=== PATIENT | male | born 1950 | race Caucasian/White ===

== ENCOUNTER 2017-04-04 14:04 | Inpatient (IN) | payer MEDICARE ==
[2017-04-04 14:40] LABS: #Basophils 0.1 thou/uL (0.0-0.2); #Eosinphils 0.1 thou/uL (0.0-0.7); #Lymphocytes 2.1 thou/uL (1.20-3.40); #Monocytes 0.7 thou/uL (0.11-0.59); #Neutrophils 5.3 thou/uL (1.40-6.50); %Basophils 0.7 % (0.0-1.0); %Eosinophils 1.2 % (0.0-10.0); %Lymphocytes 25.3 % (21.0-51.0); %Monocytes 8.8 % (0.0-10.0); Red Blood Cell (RBC) Count 4.09 mill/uL (4.70-6.10); White Blood Cell (WBC) Count 8.2 thou/uL (4.8-10.8)
[2017-04-04 14:47] LABS: PTT 30.5 SEC (22.9-36.1); Prothrombin Time 13.9 SEC (12.0-14.7)
[2017-04-04] MEDS ORDERED: Diltiazem HCl 125 MG, Admixture Fee 1 EACH in Sodium Chloride 0.9% 100 ML IVPB SCH (15:00)
--- NOTE | 2017-04-04 15:02 | RAD ---
PORTABLE CHEST: History: Chest pain. Comparison: 08-09-16 FINDINGS: Cardiomegaly. Post op sternotomy change. Lung morel appear clear. No evidence of vascular congestion . IMPRESSION: Mild cardiomegaly. No acute lung process. POS: [facility]
[2017-04-04 15:04] LABS: Digoxin Less than 0.15 ng/mL (0.8-2.0)
[2017-04-04 15:06] LABS: ALT (SGPT) 22 U/L (8-55); AST (SGOT) 16 U/L (5-34); Alkaline Phosphatase 96 U/L (40-150); Anion Gap 15 mmol/L (10-20); BUN (Urea Nitrogen) 13 mg/dL (8.4-25.7); Bilirubin, Total 1.8 mg/dL (0.2-1.2); CK (CPK) 123 U/L (30-200); Calc. Creatinine Clearance 0 mL/min (70-130); Calcium 9.4 mg/dL (7.8-10.44); Carbon Dioxide 28 mmol/L (23-31); Chloride 101 mmol/L (98-107); Estimated GFR-MDRD 72; Lipase 27 U/L (8-78); Protein, Total 7.3 g/dL (5.8-8.1)
[2017-04-04 15:13] LABS: Troponin I 0.519 ng/mL (< 0.028)
[2017-04-04] MEDS ORDERED: Enoxaparin Sodium 100 MG/ML SYRINGE ONE (16:05)
[2017-04-04] MEDS ORDERED: Enoxaparin Sodium 30 MG/0.3 ML SYRINGE ONE (16:07)
[2017-04-04] MEDS ORDERED: Digoxin 0.5 MG/2 ML AMP ONE ×2 (18:05→18:06)
[2017-04-04 18:15] LABS: Critical Call Chem Troponin I RESULT DECREASING; Troponin I 0.462 ng/mL (< 0.028)
[2017-04-04] MEDS ORDERED: HYDROcodone/Acetaminophen 5/325 mg Tablet PO PRN (19:09)
[2017-04-04] MEDS ORDERED: Dextrose 5% in Water 1,000 ML IV PRN (19:09)
[2017-04-04] MEDS ORDERED: Ondansetron ODT 4 MG TAB PO PRN (19:09)
[2017-04-04] MEDS ORDERED: HYDROcodone/Acetaminophen 10/325 mg Tablet PO PRN (19:09)
[2017-04-04] MEDS ORDERED: Dextrose 50% Abboject 50 ML SYRINGE SLOW IVP PRN (19:09)
[2017-04-04] MEDS ORDERED: Acetaminophen 325 MG TAB PO PRN (19:09)
[2017-04-04 20:39] VITALS: BMI 31.1
[2017-04-04] MEDS: HumaLOG 300 UNITS/3 ML VIAL SC PRN (20:51)
[2017-04-04] MEDS ORDERED: Atorvastatin Calcium 20 MG TAB PO SCH (21:00)
[2017-04-04] MEDS ORDERED: Enoxaparin Sodium 120 MG/0.8 ML SYRINGE SC SCH (21:00)
--- NOTE | 2017-04-04 22:09 | HP ---
DATE OF ADMISSION: 04/04/2017 TIME OF SERVICE: 17:20 PRIMARY CARE PHYSICIAN: Jossy duarte. PRIMARY MEDICAL TECHNOLOGIST MICROBIOLOGY: I believe is Dr. Alvarado. CHIEF COMPLAINT: Shortness of breath. HISTORY OF PRESENT ILLNESS: Mr. Bae is a 66-year-old gentleman with history of obesity, diabetes mellitus type 2, coronary artery disease; and congestive heart failure, systolic, who presented to [facility] emergency department from the [facility] for shortness of breath. The patient states he has been having increased shortness of breath, palpitations, and today developed chest tightness. He denies any fevers or chills. No nausea, vomiting or sweats. No diaphoresis. He has had some ortho pnea. He has felt bad for the last 2 days and came to the [facility] Failure [facility] for evaluation. There he was found to be in atrial fibrillation with RVR and brought over here immediately for furthe r evaluation. Workup in the ER confirmed atrial fibrillation with RVR, troponin I was noted to be 0.519 and his CK- MB was normal at 3.7. We were called for evaluation. The patient states he had an echo done last month with Dr. Alvarado's office. I do not have the results for that immediately. Historically, he has had an EF of around 50%-55%. He has had some chronic systolic congestive heart failure. PAST MEDICAL HISTORY: 1. Diabetes mellitus type 2, non-insulin dependent. 2. Coronary artery disease status post coronary artery bypass grafting 3 vessels in 12/2006. 3. Essential hypertension. 4. Chronic systolic congestive heart failure. 5. Obesity. PAST SURGICAL HISTORY: Include, 1. Coronary artery bypass grafting x3 vessels on 01/12/2007. These were outlined very precisely in Dr. Cardenas's note dated 07/2016. 2. Bilateral carotid endarterectomy 3-4 years ago. 3. Bilateral lower extremity graft bypasses in 2012 or 2013. HOME MEDICATIONS: 1. Aspirin 81 mg a day, but he has been out of it and has not taken it. 2. Lipitor 40 mg p.o. at bedtime. 3. Lasix 40 mg daily. 4. Metformin 1000 mg p.o. b.i.d. 5. Entresto 1 tablet b.i.d. 6. Multivitamin daily. 7. KCl 20 mEq daily. 8. Nexium 22.3 mg 24-hour release. ALLERGIES: No known drug allergies. FAMILY HISTORY: Negative for clotting or bleeding disorder, no immune dysfunction. SOCIAL HISTORY: Past tobacco, but quit over a year ago. He states does drink weekly social alcohol. No IV drug use. REVIEW OF SYSTEMS: A 10-point review of systems was performed, negative for other systems except as stated as per HPI. PHYSICAL EXAMINATION: VITAL SIGNS: Temperature 98.2, pulse on arrival was 141, now down to 110s to 120s, blood pressure 10 7/78, respiratory rate 22, satting 98% on room air. GENERAL: He is awake. He is alert. He is oriented x3. He is an obese white male, appears to be in no acute distress. HEENT: Normocephalic, atraumatic. Pupils equal, round, reactive bilaterally. Mucous membranes are moist. He has no visible lesion, no thrush. NECK: Supple with no lymphadenopathy, JVD or thyromegaly. He has normal carotid upstrokes without b ruits. LUNGS: Clear bilaterally as a fine bibasilar crackles that seem to clear with deep inspiration. CARDIOVASCULAR: Tachycardic and irregularly irregular. He has normal S1, S2. I do hear a holosysto lic murmur best over the apex, does not radiate anywhere else. ABDOMEN: Obese, it is nontender, nondistended. Cannot palpate internal organs. He has no rebound, rigidity or guarding. There is normoactive bowel sounds present in all 4 quadrants. EXTREMITIES: No cyanosis or clubbing. He has a trace, 1+ pedal edema. I cannot palpate dorsalis pe dis or posterior tibial pulses well. His feet are warm. SKIN: Otherwise, warm, moist and well perfused without any other rashes or lesions. MUSCULOSKELETAL: Normal to inspection. Large joints appear uninflamed and no palpable joint effusio ns. NEUROLOGIC: Cranial nerves II-XII grossly intact. He has 5/5 strength. Normal speech pattern. No focal neurologic deficits. LABORATORY DATA: CMP is fairly normal. Creatinine 1.04, glucose was elevated at 350. INR normal at 1.1. Total bilirubin slightly elevated at 1.8. CBC showed a white count of 8.2, hemoglobin 13.1, hematocrit 39, platelets of 181,000 and a normal di fferential. A chest x-ray showed mild cardiomegaly. ASSESSMENT AND PLAN: 1. Atrial fibrillation with rapid ventricular response: New onset. Place the patient in patient on telemetry. He will be on a Cardizem drip. We will consult Cardiology to evaluate him. 2. Non-ST elevation myocardial infarction: Troponin I is 0.519. We will get serial cardiac biomark ers, place him on a beta cali, aspirin, and nitrates have tolerated. We will trend his troponins. Certainly could be demand ischemia from his heart rate and known coronary artery disease. 3. History of coronary artery disease: As above. He has no angina at present. He did have some ch est tightness, but seems to have resolved with his slowing heart rate. 4. Essential hypertension: We will continue his home medications as tolerated. 5. History of chronic systolic congestive heart failure: He had an echo last month, I have not orde red another one. 6. We will follow up on Cardiology's recommendations. 7. Obesity, BMI 30-35. The patient is being placed on a heart healthy diet, diabetic diet. 8. Diabetes mellitus type 2. We will continue metformin. We will use sliding scale insulin for cor rection and get q.i.d. a.c. and at bedtime Accu-Cheks.
--- NOTE | 2017-04-04 23:09 | CON ---
DATE OF CONSULTAION: 04/04/2017 HISTORY OF PRESENT ILLNESS: Patient is a 66-year-old gentleman who presents for evaluation of palpitations, chest discomfort, and dyspnea. The patient has a long history of coronary artery disease. He has previously undergone coronary artery bypass graft surgery x3 in 2006. He had a KATZ placed to LAD, saphenous vein graft to the diagonal and posterior descending artery. The patient also has a history of carotid endarterectomy. He has also undergone bilateral fem-pop surgery.The patient has a history of an ischemic cardiomyopathy.He has been admitted previously with congestive heart failure. The patient was seen most recently in the hospital with CHF and has been followed in the CHF clinic. He also has been in a trial called Prove-HF trial. The patient was in his usual state of health when he suddenly noticed the palpitations, chest discomfort, and dyspnea. PAST MEDICAL HISTORY: 1. Hypertension. 2. Hyperlipidemia. 3. Ischemic cardiomyopathy. 4. Diabetes mellitus. 5. History of noncompliance. 6. Cerebrovascular disease. 7. Peripheral vascular disease. 8. Dyslipidemia. PAST SURGICAL HISTORY: Bilateral carotid endarterectomy, coronary artery bypass surgery, femoral bypass surgery. SOCIAL HISTORY: He is a former smoker. FAMILY HISTORY: Strong family history of heart disease. ALLERGIES: No known drug allergies. MEDICATIONS: Glucophage 500 b.i.d., Altace 2.5 daily, potassium 10 daily, Lasix 40 at bedtime, Plavix 75 daily, Coreg 6.25 b.i.d., Omnicef 300 b.i.d., atorvastatin 20 daily, and aspirin 81 daily. REVIEW OF SYSTEMS: Ten-point system otherwise unremarkable. No history of bright red blood per rectum, hematuria. PHYSICAL EXAMINATION: GENERAL: This is an obese gentleman in mild distress with a blood pressure 100/ 60, heart rate is 120 and irregular. NECK: Full. LUNGS: Coarse breath sounds bilateral. HEART: Irregular rate and rhythm. Normal S1, S2, 1/6 systolic murmur. ABDOMEN: Distended. EXTREMITIES: Showed trace edema. VASCULAR: Radial pulses are 2+. LABORATORY RESULTS: Sodium 140, potassium 3.9, chloride 101, bicarbonate 28, BUN 13, creatinine is 1.0, glucose 305. Troponin was 0.046. His white blood cell count is 8.2, hemoglobin 13.1, hematocrit 39.0 and his platelets were 181. INR is 1.1. EKG revealed atrial fibrillation with a nonspecific ST-T wave abnormality. IMPRESSION: 1. New onset atrial fibrillation. 2. History of coronary artery bypass graft surgery.` 3. Hypertension. 4. Dyslipidemia. 5. Diabetes mellitus. 6. Ischemic cardiomyopathy. 7. Obesity. PLAN: This gentleman presents with new onset atrial fibrillation. From a cardiac standpoint, he will need to be on chronic anticoagulation therapy. I have recommended the patient to undergo SARAH and electrical cardioversion. We will add digoxin to his medical regimen to slow his heart rate. We will follow this patient with you through his hospitalization. JANY
[2017-04-05 06:04] LABS: #Basophils 0.1 thou/uL (0.0-0.2); #Eosinphils 0.1 thou/uL (0.0-0.7); #Monocytes 0.8 thou/uL (0.11-0.59); #Neutrophils 3.7 thou/uL (1.40-6.50); %Eosinophils 1.6 % (0.0-10.0); %Lymphocytes 30.5 % (21.0-51.0); %Monocytes 11.4 % (0.0-10.0); Hematocrit 34.1 % (42.0-52.0); Red Blood Cell (RBC) Count 3.55 mill/uL (4.70-6.10); White Blood Cell (WBC) Count 6.6 thou/uL (4.8-10.8)
[2017-04-05 06:25] LABS: Anion Gap 11 mmol/L (10-20); BUN (Urea Nitrogen) 14 mg/dL (8.4-25.7); Calc. Creatinine Clearance 109 mL/min (70-130); Carbon Dioxide 30 mmol/L (23-31); Chloride 99 mmol/L (98-107); Cholesterol 110 mg/dl (< 200 Desired); Estimated GFR-MDRD 74; LDL Cholesterol, Calculated 34 mg/dL
[2017-04-05 06:26] LABS: Critical Call Chem Troponin I RESULT DECREASING; Troponin I 0.451 ng/mL (< 0.028)
[2017-04-05] MEDS ORDERED: Aspirin 325 MG TAB PO SCH (09:00)
[2017-04-05 09:31] LABS: Hematocrit 35.4 % (42.0-52.0)
[2017-04-05 11:29] LABS: Troponin I 0.435 ng/mL (< 0.028)
--- NOTE | 2017-04-05 11:37 | PDOC.PN ---
- Subjective Encounter Start Date: 04/05/17 Encounter Start Time: 09:50 Pt feeling better, Hungry. Seen by Dr Solis, going to SARAH and DC cardioversion today. No more chest pressure, rate much better on cardizem gtt at 7.5. No F/C, no N/V/d/c, no SOB, no orthopnea now 10 point ROS performed and neg for all systems except as above - Objective Resuscitation Status: Resuscitation Status FULL:Full Resuscitation MAR Reviewed: Yes Vital Signs & Weight: Vital Signs (12 hours) Temp Pulse Resp BP Pulse Ox 04/05/17 07:51 98.0 F 85 18 131/59 L 94 L 04/05/17 07:41 98.0 F 109 H 18 94 L 04/05/17 04:00 98.0 F 109 H 18 109/57 L 93 L Weight Weight 230 lb 2 oz I&O: 04/04/17 04/05/17 04/06/17 06:59 06:59 06:59 Intake Total 414 Output Total 500 Balance -86 Result Diagrams: 04/05/17 09:17 04/05/17 05:49 Additional Labs: Accuchecks 04/05/17 04/05/17 04/04/17 11:04 06:03 20:34 POC Glucose 304 H 298 H 267 H Radiology Reviewed by me: Yes EKG Reviewed by me: Yes Phys Exam - Physical Examination Constitutional: NAD HEENT: PERRLA, moist MMs, sclera anicteric, oral pharynx no lesions Neck: no nodes, no JVD, supple, full ROM Respiratory: no wheezing, no rales, no rhonchi, clear to auscultation bilateral Cardiovascular: no significant murmur, no rub, irregular Gastrointestinal: soft, non-tender, no distention, positive bowel sounds Musculoskeletal: no edema, pulses present Neurological: non-focal, normal sensation, moves all 4 limbs Lymphatic: no nodes Psychiatric: normal affect, A&O x 3 Skin: no rash, normal turgor, cap refill <2 seconds Dx/Plan (1) New onset atrial fibrillation Code(s): I48.91 - UNSPECIFIED ATRIAL FIBRILLATION Status: Acute Comment: rate betteron cardizem. for DC cardioversion today if SARAH clear of clot (2) Acute on chronic systolic CHF (congestive heart failure) Code(s): I50.23 - ACUTE ON CHRONIC SYSTOLIC (CONGESTIVE) HEART FAILURE Status : Acute Comment: diruese as indicated (3) CAD (coronary artery disease) Code(s): I25.10 - ATHSCL HEART DISEASE OF [place] CORONARY ARTERY W/O ANG PCTRS Status: Chronic Qualifiers: Coronary Disease-Associated Artery/Lesion type: unspecified vessel or lesion type [place] vs. transplanted heart: [place] heart Associated angina: with stable angina Qualified Code(s): I25.118 - Atherosclerotic heart disease of [place] coronary artery with other forms of angina pectoris (4) Demand ischemia Code(s): I24.8 - OTHER FORMS OF ACUTE ISCHEMIC HEART DISEASE Status: Acute Comment: from Afib with RVR. better now. Trop peaked at 0.5 (5) Diabetes mellitus Code(s): E11.9 - TYPE 2 DIABETES MELLITUS WITHOUT COMPLICATIONS Status: Chronic Qualifiers: Diabetes mellitus type: type 2 Diabetes mellitus complication status: with hyperglycemia Diabetes mellitus watermaster insulin use: without chcf use Qualified Code(s): E11.65 - Type 2 diabetes mellitus with hyperglycemia (6) HTN (hypertension) Code(s): I10 - ESSENTIAL (PRIMARY) HYPERTENSION Status: Chronic Qualifiers: Hypertension type: essential hypertension Qualified Code(s): I10 - Essential (primary) hypertension - Plan cont current plan of care * .
--- NOTE | 2017-04-05 13:47 | ECHO ---
TRANSESOPHAGEAL ECHOCARDIOGRAM: DATE OF PROCEDURE: 04/05/17 INDICATION: 66-year-old gentleman with paroxysmal atrial fibrillation. DESCRIPTION OF PROCEDURE: The patient was taken to the PACU. The patient was sedated by anesthesiology. A transesophageal probe was placed in the distal esophagus and stomach. Echocardiographic images were obtained. The transesophageal probe was removed. FINDINGS: 1. Mild to moderate decrease in left ventricular systolic function. 2. The septal wall appears akinetic. 3. Normal mitral and aortic valve. 4. Mild mitral regurgitation. 5. Mild tricuspid regurgitation. 6. No thrombus in appendage. 7. Atherosclerotic debris in the descending aorta. IMPRESSION: No formed thrombus in the left atrium or left atrial appendage.
--- NOTE | 2017-04-05 13:48 | OP ---
PROCEDURE NOTE: Date: 04/05/17 PROCEDURE: Electrical cardioversion. INDICATION: This is a 66-year-old gentleman with paroxysmal atrial fibrillation. DESCRIPTION OF PROCEDURE: The patient taken to the PACU. The patient is sedated by anesthesiology. The patient was shocked wi th 200 joules synchronized electricity. The patient converted to normal sinus rhythm. IMPRESSION: Successful electrocardioversion.
[2017-04-05] MEDS ORDERED: Propofol 200 MG/20 ML VIAL ONE (16:26)
[2017-04-05] MEDS: Aspirin 81 mg Enteric Coated Tablet PO SCH (16:29)
[2017-04-05] MEDS: metFORMIN 500 MG TAB PO SCH (16:29)
[2017-04-05] MEDS: Apixaban 5 MG TAB PO SCH ×2 (16:29→20:12)
[2017-04-05] MEDS: Carvedilol 3.125 MG TAB PO SCH (17:45)
[2017-04-05] MEDS: HumaLOG 300 UNITS/3 ML VIAL SC PRN (17:45)
[2017-04-05] MEDS ORDERED: Atorvastatin Calcium 40 MG TAB PO SCH (21:00)
[2017-04-05] MEDS ORDERED: Sacubitril 49 MG/Valsartan 51 MG TABLET PO SCH (21:00)
[2017-04-06] MEDS ORDERED: Carvedilol 6.25 MG TAB PO SCH (08:00)
[2017-04-06] MEDS ORDERED: Sacubitril 49 MG/Valsartan 51 MG TABLET PO SCH ×2 (08:31→09:00)
[2017-04-06] MEDS ORDERED: Carvedilol 3.125 MG TAB PO SCH (08:31)
[2017-04-06] MEDS ORDERED: Furosemide 40 MG TAB PO SCH ×2 (08:45→09:30)
[2017-04-06] MEDS: Apixaban 5 MG TAB PO SCH (09:36)
[2017-04-06] MEDS: metFORMIN 500 MG TAB PO SCH (09:36)
[2017-04-06] MEDS: Aspirin 81 mg Enteric Coated Tablet PO SCH (09:36)
[2017-04-06] MEDS: Carvedilol 3.125 MG TAB PO SCH (10:08)
[2017-04-06 13:03] VITALS: TEMP 98.1
[2017-04-06] MEDS: HumaLOG 300 UNITS/3 ML VIAL SC PRN (13:41)
[2017-04-06 15:01] VITALS: BP 111/73
--- NOTE | 2017-04-06 15:56 | DIS ---
DATE OF ADMISSION: 04/04/2017 DATE OF DISCHARGE: 04/06/2017 DISCHARGE DIAGNOSES: 1. New onset atrial fibrillation. 2. Demand ischemia. 3. History of coronary artery disease. 4. Status post coronary artery bypass grafting in the past. 5. Status post discontinue cardioversion this hospital stay. 6. Acute on chronic systolic congestive heart failure. 7. Diabetes mellitus type 2, uncontrolled, without long-term insulin use. 8. Essential hypertension. CONSULTATION: Dr. Oscar Solis on 04/04/2017. PROCEDURES: 1. Transesophageal echocardiogram on 04/05/2017 that revealed mild to moderate decrease in LV systol ic function, akinetic septal wall, mild MR, mild TR, normal mitral and aortic valves. No thrombus in the atrial appendages and atherosclerotic debris in the descending aorta. 2. Discontinue cardioversion on 04/05/2017 and was successful and conversion back to normal sinus rh ythm. HISTORY AND PHYSICAL: Mr. Bae is a 66-year-old gentleman whom I admitted on 04/04/2017. He prese nted to the emergency department with complaints of difficulty breathing that has been going on and i ncreasing shortness of breath over several days. He went to his appointment at the Heart Failure Cli lance today and was found to have tachycardia and was sent to the emergency department for evaluation. There, he is found to be in atrial fibrillation with rapid ventricular response which is a new findin g for him. We were subsequently called for admission. The remainder of his workup revealed troponin I of 0.519. The patient was subsequently admitted to our service. HOSPITAL COURSE: The patient was seen and examined by me in the Emergency Department. He was admitt ed to the hospital for atrial fibrillation with RVR and Cardizem drip. He was placed in the telemetr y floor and Cardiology consulted. The patient was seen by Dr. Solis, medication adjustments were made and he was scheduled for SARAH a nd discontinue cardioversion in the morning. Overnight, his heart rate remained rate controlled in t he low 100s. He had no further chest pain and biomarkers remained stable at 0.5 range. He was taken for his SARAH, which was negative for atrial clot and discontinue cardioversion was successful and he was kept overnight. His biomarkers improved, he had no further discomfort, and he remained in sinus rhythm overnight. He was started on Eliquis by Dr. Solis. Today, he is feeling better, and was stable for discharge with outpatient followup. DISCHARGE MEDICATIONS: 1. Eliquis 5 mg p.o. b.i.d., prescription sent. 2. Aspirin 81 mg daily. 3. Lipitor 40 mg p.o. at bedtime. 4. Coreg 6.25 mg p.o. b.i.d. 5. Plavix 75 mg a day which he does not take. 6. Lasix 40 mg p.o. daily. 7. Metformin 1000 mg p.o. b.i.d. 8. Multivitamin daily. 9. Potassium chloride 20 mEq daily. 10. Entresto per Dr. Alvarado 97/103 one p.o. b.i.d. The patient was seen and examined on the day of discharge. He remained in normal sinus rhythm. Disc harge plan was discussed with the patient's face to face at the bedside. FOLLOWUP APPOINTMENTS 1. Dr. Alvarado, his edi consultant with approved program in [facility] within a week. 2. PCP: The patient said he has none. I encouraged him to follow up with one established. DISCHARGE ACTIVITY: Per cardiopulmonary limits. DISCHARGE DIET: Heart healthy diabetic diet recommended. Patient was instructed to call his edi consultant or to the emergency department for worsening symptoms .
[2017-04-07] MEDS ORDERED: Furosemide 40 MG TAB PO SCH (07:30)
== END 2017-04-06 15:30 | disposition home or self-care (01) | DRG 308 ==
LOC: ERS 14:04 → 2NO 16:24
PROVIDERS: ADMIT Internal Medicine Infectious Disease; ATTEND Internal Medicine Infectious Disease
PROC: 5A2204Z Restoration of Cardiac Rhythm, Single (ICD-10-PCS; principal; 2017-04-05)
PROC: B24BZZ4 Ultrasonography of Heart with Aorta, Transesophageal (ICD-10-PCS; 2017-04-05)
DX: I48.0 Paroxysmal atrial fibrillation (principal); I50.23 Acute on chronic systolic (congestive) heart failure; I24.8 Other forms of acute ischemic heart disease; Z95.1 Presence of aortocoronary bypass graft; E11.65 Type 2 diabetes mellitus with hyperglycemia; I25.10 Atherosclerotic heart disease of native coronary artery without angina pectoris; I11.0 Hypertensive heart disease with heart failure; I25.5 Ischemic cardiomyopathy; Z86.73 Personal history of transient ischemic attack (TIA), and cerebral infarction without residual deficits; E78.5 Hyperlipidemia, unspecified; Z91.19 Patient's noncompliance with other medical treatment and regimen; Z87.891 Personal history of nicotine dependence; E66.9 Obesity, unspecified; Z68.31 Body mass index [BMI] 31.0-31.9, adult
CPT/HCPCS: 36415; 36416; 71010; 80048; 80053; 80061; 80162; 82553; 83690; 84443; 84484; 85025; 85610; 85730; 93005; 93312; 96361; 96365; 96366; 96372; 96375; 96376; J1160; J1650; J2704; J7050

== ENCOUNTER 2018-03-31 10:12 | Inpatient (IN) | payer MEDICARE ==
[2018-03-31] MEDS ORDERED: Furosemide 40 MG/4 ML VIAL ONE (10:29)
[2018-03-31] MEDS ORDERED: Nitroglycerin 2% Ointment 1 INCH/1 GM Packet ONE (10:29)
[2018-03-31 10:34] LABS: #Basophils 0.1 thou/uL (0.0-0.2); #Eosinphils 0.1 thou/uL (0.0-0.7); #Lymphocytes 1.6 thou/uL (1.20-3.40); #Monocytes 0.5 thou/uL (0.11-0.59); #Neutrophils 4.7 thou/uL (1.40-6.50); %Basophils 0.7 % (0.0-1.0); %Lymphocytes 23.4 % (21.0-51.0); %Monocytes 7.1 % (0.0-10.0); %Neutrophils 67.8 % (42.0-75.0); Hemoglobin 13.2 g/dL (14.0-18.0); Mean Corpuscular HGB CONC 33.1 g/dL (32.0-36.0); Mean Corpuscular Hemoglobin 31.4 pg (27.0-31.0); Mean Corpuscular Volume 94.7 fL (78.0-98.0); Mean Platelet Volume 11.5 fL (7.4-10.4); Platelet Count 174 thou/uL (130-400); RBC Distribution Width 13.8 % (11.5-14.5); Red Blood Cell (RBC) Count 4.22 mill/uL (4.70-6.10)
--- NOTE | 2018-03-31 10:41 | RAD ---
PORTABLE CHEST: DATE: 03/31/2018. PROVIDED CLINICAL HISTORY: Dyspnea. FINDINGS: Comparison 04/04/2017. Cardiac silhouette appears enlarged. Median sternotomy changes are again see n. Prominence of the pulmonary vasculature and pulmonary interstitium. No focal consolidation, pleu ral fluid, or pneumothorax apparent. IMPRESSION: Findings suggesting congestive failure. Followup is recommended. POS: [facility]
[2018-03-31] MEDS ORDERED: Nitroglycerin 0.4 MG TAB (25 Tab Bottle) ONE (10:43)
[2018-03-31 10:52] LABS: ALT (SGPT) 17 U/L (8-55); AST (SGOT) 16 U/L (5-34); Albumin 4.3 g/dL (3.4-4.8); Alkaline Phosphatase 84 U/L (40-150); Anion Gap 15 mmol/L (10-20); BUN (Urea Nitrogen) 14 mg/dL (8.4-25.7); Bilirubin, Total 1.1 mg/dL (0.2-1.2); Calc. Creatinine Clearance 0 mL/min (70-130); Calcium 9.8 mg/dL (7.8-10.44); Carbon Dioxide 27 mmol/L (23-31); Chloride 102 mmol/L (98-107); Estimated GFR-MDRD 75; Globulin 3.6 g/dL (2.4-3.5); Glucose 259 mg/dL (80-115); Potassium 3.9 mmol/L (3.5-5.1); Protein, Total 7.9 g/dL (5.8-8.1); Sodium 140 mmol/L (136-145)
[2018-03-31] MEDS ORDERED: Acetaminophen 500 MG TAB ONE (11:07)
[2018-03-31 12:11] LABS: Magnesium 1.7 mg/dL (1.6-2.6); Phosphorus 2.9 mg/dL (2.3-4.7)
[2018-03-31] MEDS ORDERED: Acetaminophen 325 MG TAB PO PRN (12:28)
[2018-03-31] MEDS ORDERED: Ondansetron PF 4 MG/2 ML Vial IVP PRN (12:28)
[2018-03-31] MEDS ORDERED: Nitroglycerin 0.4 MG TAB (25 Tab Bottle) PO PRN (12:28)
[2018-03-31] MEDS ORDERED: Ondansetron ODT 4 MG TAB PO PRN (12:28)
[2018-03-31] MEDS ORDERED: Calcium Carbonate 500 MG ChewTAB PO PRN (12:28)
[2018-03-31] MEDS ORDERED: Clopidogrel Bisulfate 75 MG TAB PO SCH (12:30)
--- NOTE | 2018-03-31 12:45 | HP ---
PRIMARY CARE PHYSICIAN: [facility]. PRIMARY CASE MANAGEMENT COORDINATOR: Oscar Solis MD CHIEF COMPLAINT: Shortness of breath. HISTORY OF PRESENT ILLNESS: The patient is a 67-year-old male with congestive heart failure, diabetes mellitus type 2, and coronary artery disease, presented to the hospital with shortness of breath that has been going on for a week or so. It got worse over the last 24 hours, for which he presented to the emergency room. He was unable to lie down flat. He also noticed increased abdominal girth. The shortness of breath was mainly on minimal exertion. He had some cough, which was essentially dry. No fever, chills, or sick contacts reported. He denies any chest pain, palpitations, lightheadedness, dizziness, or syncope. No recent immobilization, travel reported. In the emergency room, his chest x-ray showed pulmonary vascular congestion. His BNP was 649. He received one dose of Lasix 40 mg in the emergency room and was placed on noninvasive positive pressure ventilation. At this time, he is off BiPAP. PAST MEDICAL HISTORY: 1. Coronary artery disease, status post CABG in 2006. 2. Hypertension. 3. Chronic systolic heart failure. 4. Diabetes mellitus type 2, on metformin. 5. Paroxysmal atrial fibrillation, on anticoagulation. 6. Peripheral vascular disease. PAST SURGICAL HISTORY: 1. SARAH cardioversion in 04/09. 2. Coronary artery bypass grafting in 2006. 3. Bilateral carotid endarterectomy. 4. Femoral bypass surgery. ALLERGIES: NO KNOWN DRUG ALLERGIES. CURRENT HOME MEDICATIONS: Conformed with the medication at the bedside. 1. Metformin 1000 mg b.i.d. 2. Entresto 97/103 b.i.d. 3. Multivitamin one tablet daily. 4. Lasix 40 mg daily. 5. Plavix 75 mg daily. 6. Carvedilol 12.5 mg b.i.d. 7. Lipitor 40 mg at bedtime. 8. Aspirin 81 mg daily. Please note that, the patient is out of aspirin for last two weeks. 9. Eliquis 5 mg b.i.d. SOCIAL HISTORY: The patient is a former smoker. Drinks alcohol socially. He denies any drug use. He is full code. FAMILY HISTORY: Positive for heart disease. REVIEW OF SYSTEMS: All other review of systems was reviewed and was found negative. PHYSICAL EXAMINATION: VITAL SIGNS: Temperature 97.6, respirations 25, pulse rate of 91, blood pressure of 174/98, initially with a repeat blood pressure of 153/66, with O2 saturation 93 % on room air. GENERAL: A 67-year-old man, in mild respiratory distress, able to complete short sentences. HEENT: Head; atraumatic, normocephalic. Sclerae anicteric. Moist mucous membranes. No oral lesion. NECK: Supple. JVD elevated. No carotid bruit. LUNGS: Showed bibasilar crackles with scattered rhonchi. No significant wheezing appreciated. LUNGS: Symmetrical. Minimal accessory muscle use. HEART: S1 and S2 present. Regular rate and rhythm. Healed midline scar from previous CABG. No heaves or palpitation. ABDOMEN: Soft, distended. Bowel sounds present. No guarding or rigidity. EXTREMITIES: 1+ edema in bilateral lower extremities. SKIN: Warm and dry. LYMPH NODES: No palpable lymph nodes in the neck. Peripheral, vascular, radial pulses palpable bilaterally. MUSCULOSKELETAL: No joint swelling, tenderness. LABORATORY FINDINGS: CBC showed WBC 7.0, with hemoglobin 13.2, hematocrit 39.9, platelet count 174. Chemistry showed sodium 140, potassium 3.9, chloride of 102 , bicarb 27, BUN 14, creatinine 1. BNP 650. Troponin was negative. Chest x-ray , by my review, as discussed above. EKG, by my review, showed sinus rhythm with ST depression in the inferior and lateral leads. IMPRESSION: 1. Acute on chronic systolic heart failure exacerbation. 2. Acute hypoxic respiratory failure secondary to #1. 3. Coronary artery disease, status post coronary artery bypass grafting. 4. Ischemic cardiomyopathy. 5. Chronic kidney disease, stage 2. 6. Diabetes mellitus type 2, on metformin. 7. Peripheral vascular disease. 8. Dyslipidemia. 9. History of medication noncompliance. 10. Intermittent alcohol use. 11. Hypertension. 12. Paroxysmal atrial fibrillation, on anticoagulation. PLAN: The patient will be monitored on the telemetry unit. He is currently off noninvasive positive pressure ventilation. We will continue IV diuresis. We will resume Entresto in a.m. We will continue aspirin and Plavix. We will get serial troponins. The patient was extensively counseled on congestive heart failure. He does not check his weight on a daily basis. We will consult Cardiovascular Team. He will also benefit from [facility] Failure Clinic. Fluid restriction. Nebulizer treatment as needed. We will continue carvedilol at 6.25 mg twice a day. We will increase to home dose that is 12.5 mg twice a day. The patient will require 2 to 3 days for stabilization. Plan of care was discussed with the patient in detail. He stated understanding. Cardiac Rehab will be consulted. We will start him on insulin sliding scale. Job ID: [id number] MTDD
[2018-03-31 13:50] VITALS: BMI 33.1
[2018-03-31] MEDS ORDERED: Furosemide 40 MG/4 ML VIAL SLOW IVP SCH (16:00)
[2018-03-31] MEDS: metFORMIN 500 MG TAB PO SCH (16:53)
[2018-03-31 17:35] LABS: Platelet Count 182 thou/uL (130-400)
[2018-03-31] MEDS ORDERED: Dextrose 5% in Water 1,000 ML IV PRN (17:43)
[2018-03-31] MEDS ORDERED: Dextrose 50% Abboject 50 ML SYRINGE SLOW IVP PRN (17:43)
[2018-03-31] MEDS ORDERED: Insulin Regular 300 UNITS/3 ML VIAL SC PRN (17:43)
[2018-03-31 17:58] LABS: Troponin I 0.028 ng/mL (< 0.028)
[2018-03-31] MEDS: Insulin Regular 300 UNITS/3 ML VIAL SC PRN (18:26)
[2018-03-31] MEDS: Famotidine 20 MG TAB PO SCH (21:07)
[2018-03-31] MEDS: Atorvastatin Calcium 40 MG TAB PO SCH (21:07)
[2018-03-31] MEDS: Senokot S 8.6-50 MG TAB PO SCH (21:07)
[2018-03-31] MEDS: Apixaban 5 MG TAB PO SCH (21:07)
[2018-03-31] MEDS: Carvedilol 6.25 MG TAB PO SCH (21:07)
[2018-04-01] MEDS: Furosemide 40 MG/4 ML VIAL SLOW IVP SCH ×2 (05:24→13:25)
[2018-04-01 06:17] LABS: ALT (SGPT) 13 U/L (8-55); AST (SGOT) 13 U/L (5-34); Alkaline Phosphatase 74 U/L (40-150); Anion Gap 14 mmol/L (10-20); BUN (Urea Nitrogen) 15 mg/dL (8.4-25.7); Calc. Creatinine Clearance 124 mL/min (70-130); Calcium 9.4 mg/dL (7.8-10.44); Carbon Dioxide 31 mmol/L (23-31); Chloride 100 mmol/L (98-107); Estimated GFR-MDRD 82; Globulin 3.3 g/dL (2.4-3.5); Glucose 210 mg/dL (80-115); Magnesium 1.6 mg/dL (1.6-2.6); Potassium 3.5 mmol/L (3.5-5.1); Protein, Total 7.3 g/dL (5.8-8.1); Sodium 141 mmol/L (136-145)
[2018-04-01] MEDS: Apixaban 5 MG TAB PO SCH ×2 (09:33→20:17)
[2018-04-01] MEDS: Clopidogrel Bisulfate 75 MG TAB PO SCH (09:34)
[2018-04-01] MEDS: Famotidine 20 MG TAB PO SCH ×2 (09:34→20:17)
[2018-04-01] MEDS: Aspirin 81 mg Enteric Coated Tablet PO SCH (09:34)
[2018-04-01] MEDS: Multivitamin W/ Minerals 1 TAB PO SCH (09:34)
[2018-04-01] MEDS: Senokot S 8.6-50 MG TAB PO SCH ×2 (09:34→20:17)
[2018-04-01] MEDS: metFORMIN 500 MG TAB PO SCH ×2 (09:34→16:17)
[2018-04-01] MEDS: Insulin Regular 300 UNITS/3 ML VIAL SC PRN ×2 (09:35→13:24)
[2018-04-01] MEDS: Carvedilol 6.25 MG TAB PO SCH ×2 (09:35→20:16)
[2018-04-01] MEDS ORDERED: Alogliptin 25 MG TAB PO SCH (14:00)
--- NOTE | 2018-04-01 15:15 | PRG ---
DATE OF SERVICE: 04/01/2018 SUBJECTIVE: The patient is seen and examined at the bedside. He is feeling better. He urinated quite a bit overnight. He does not have chest pain. OBJECTIVE: VITAL SIGNS: Blood pressure is 190/71, pulse is 43, respiratory rate is 16, O2 saturation 97% on room air. GENERAL: He is obese. His weight is 245 pounds. BMI 33.2. HEENT: His head is atraumatic and normocephalic. Eyes, PERRLA. Sclerae, nonicteric. Oral mucosa is moist. NECK: Supple, obese. LUNGS: Breath sounds diminished at both bases with few crackles bilaterally. No wheezing. HEART: S1 and S2, somewhat irregular. No S3, no S4. ABDOMEN: Soft, obese, nontender. EXTREMITIES: No clubbing, cyanosis, or edema. NEUROLOGICAL: He is alert and oriented x4. There are no any motor deficits. Cranial nerves are intact. LABORATORY DATA: Labs showed glycemia is ranging from 219 to 265. His electrolytes within normal limits. BUN 15 and creatinine 0.93. IMPRESSION: 1. Acute congestive heart failure with some chronic component. 2. Acute hypoxic respiratory failure, secondary to #1. 3. Coronary artery disease, stable. 4. Ischemic cardiomyopathy. 5. Chronic kidney disease, stage 2. 6. Type 2 diabetes mellitus, not controlled. 7. Peripheral vascular disease. 8. Labile pulse. 9. Dyslipidemia. 10. History of medication noncompliance. 11. Hypertension. 12. Paroxysmal atrial fibrillation, on anticoagulation. PLAN: Plan is to restart his Entresto today. Continue his diuresis with IV Lasix. Continue his carvedilol and clopidogrel. Continue apixaban. Continue metformin. We will make some adjustments to his diabetic regimen since he is running consistently above 200s on his Accu-Cheks and we encouraged him to ambulate. We will check his BMP tomorrow morning and test him. Job ID: [id number]
[2018-04-01] MEDS: Sacubitril 49 MG/Valsartan 51 MG TABLET PO SCH (20:16)
[2018-04-01] MEDS: Atorvastatin Calcium 40 MG TAB PO SCH (20:17)
[2018-04-02] MEDS: Furosemide 40 MG/4 ML VIAL SLOW IVP SCH ×2 (04:51→15:00)
[2018-04-02 06:52] LABS: ALT (SGPT) 11 U/L (8-55); AST (SGOT) 13 U/L (5-34); Albumin 3.7 g/dL (3.4-4.8); Alkaline Phosphatase 74 U/L (40-150); Anion Gap 13 mmol/L (10-20); BUN (Urea Nitrogen) 22 mg/dL (8.4-25.7); Bilirubin, Total 0.8 mg/dL (0.2-1.2); Calc. Creatinine Clearance 91 mL/min (70-130); Calcium 9.2 mg/dL (7.8-10.44); Carbon Dioxide 31 mmol/L (23-31); Chloride 99 mmol/L (98-107); Estimated GFR-MDRD 57; Glucose 245 mg/dL (80-115); Magnesium 1.5 mg/dL (1.6-2.6); Potassium 3.4 mmol/L (3.5-5.1); Protein, Total 6.7 g/dL (5.8-8.1); Sodium 140 mmol/L (136-145)
[2018-04-02] MEDS: Alogliptin 25 MG TAB PO SCH (08:13)
[2018-04-02] MEDS: Apixaban 5 MG TAB PO SCH ×2 (08:13→20:40)
[2018-04-02] MEDS: metFORMIN 500 MG TAB PO SCH ×2 (08:13→16:00)
[2018-04-02] MEDS: Carvedilol 6.25 MG TAB PO SCH ×2 (08:13→20:40)
[2018-04-02] MEDS: Aspirin 81 mg Enteric Coated Tablet PO SCH (08:13)
[2018-04-02] MEDS: Sacubitril 49 MG/Valsartan 51 MG TABLET PO SCH ×2 (08:17→20:41)
[2018-04-02] MEDS: Senokot S 8.6-50 MG TAB PO SCH ×2 (08:17→20:41)
[2018-04-02] MEDS: Famotidine 20 MG TAB PO SCH ×2 (08:17→20:40)
[2018-04-02] MEDS: Clopidogrel Bisulfate 75 MG TAB PO SCH (08:17)
[2018-04-02] MEDS: Multivitamin W/ Minerals 1 TAB PO SCH (08:17)
[2018-04-02] MEDS ORDERED: Magnesium 2 GM/50 ML 2 GM in Premix Bag 1 BAG IVPB SCH (11:00)
[2018-04-02] MEDS: Insulin Regular 300 UNITS/3 ML VIAL SC PRN ×2 (12:15→18:33)
[2018-04-02 14:09] LABS: Hemoglobin 13.3 g/dL (14.0-18.0); Platelet Count 180 thou/uL (130-400)
--- NOTE | 2018-04-02 15:50 | PDOC.PN ---
- Subjective Encounter Start Date: 04/02/18 Encounter Start Time: 14:00 -: old records requested/rev Pt seen and examined, chart reviewed in its entirety, this is my first visit with this patient. follow up for No F/C, no N/V/D/C, no CP or SOB, no cough or sputum All systems reviewed and neg except as above - Objective Resuscitation Status - Order Detail: 03/31/18 12:28 Resuscitation Status Routine Resuscitation Status: FULL: Full Resuscitation MAR Reviewed: Yes Vital Signs & Weight: Vital Signs (12 hours) Temp Pulse Pulse Pulse Resp BP BP 04/02/18 12:11 97.8 F 86 18 04/02/18 09:28 80 57 L 133/92 H 138/56 L 04/02/18 08:02 98.1 F 45 L 18 04/02/18 08:00 04/02/18 04:37 04/02/18 04:00 97.7 F 49 L 14 BP Pulse Ox 04/02/18 12:11 159/89 H 96 04/02/18 09:28 04/02/18 08:02 152/66 H 97 04/02/18 08:00 97 04/02/18 04:37 95 04/02/18 04:00 125/53 L 92 L Weight Weight 242 lb 12.8 oz I&O: 04/01/18 04/02/18 04/03/18 06:59 06:59 06:59 Intake Total 980 1220 Output Total 2125 1500 Balance -1145 -280 Result Diagrams: 04/02/18 13:51 04/02/18 13:51 Additional Labs: Accuchecks 04/01/18 04/01/18 20:08 16:56 POC Glucose 111 H 138 H Radiology Reviewed by me: Yes EKG Reviewed by me: Yes Dx/Plan (1) Acute on chronic systolic CHF (congestive heart failure) Code(s): I50.23 - ACUTE ON CHRONIC SYSTOLIC (CONGESTIVE) HEART FAILURE Status : Acute Comment: diruese as indicated (2) Demand ischemia Code(s): I24.8 - OTHER FORMS OF ACUTE ISCHEMIC HEART DISEASE Status: Acute Comment: from Afib with RVR. better now. Trop peaked at 0.5 (3) Hypoxia Code(s): R09.02 - HYPOXEMIA Status: Acute (4) New onset atrial fibrillation Code(s): I48.91 - UNSPECIFIED ATRIAL FIBRILLATION Status: Acute Comment: rate jeri gupta. for DC cardioversion today if SARAH clear of clot (5) Pneumonia Code(s): J18.9 - PNEUMONIA, UNSPECIFIED ORGANISM Status: Acute (6) CAD (coronary artery disease) Code(s): I25.10 - ATHSCL HEART DISEASE OF [place] CORONARY ARTERY W/O ANG PCTRS Status: Chronic Qualifiers: (7) Diabetes mellitus Code(s): E11.9 - TYPE 2 DIABETES MELLITUS WITHOUT COMPLICATIONS Status: Chronic Qualifiers: (8) HTN (hypertension) Code(s): I10 - ESSENTIAL (PRIMARY) HYPERTENSION Status: Chronic Qualifiers: (9) Tobacco use Code(s): Z72.0 - TOBACCO USE Status: Chronic - Plan * .
--- NOTE | 2018-04-02 19:27 | CON ---
DATE OF CONSULTATION: REASON FOR CONSULTATION: Nonsustained VT. HISTORY OF PRESENT ILLNESS: Mr. Bae is a very pleasant 67-year-old gentleman, who is a patient of Dr. Oscar Solis. He has a history of CAD, status post bypass surgery. He also has a history of remote tobacco abuse. He states he has had increased shortness of breath over the last several days or week. He has increased weight in addition to lower extremity edema and then PND and orthopnea. He has received Lasix with significant improvement. No chest pain or pressure noted. He still has difficulty lying flat. He did have nonsustained VT present on telemetry monitoring. His magnesium level is also 1.5. PAST MEDICAL HISTORY: Diastolic heart failure, atrial fibrillation, CAD, diabetes mellitus, hyperlipidemia, fem-pop bypass, and carotid endarterectomy. ALLERGIES: NONE. MEDICATIONS: Include, 1. Metformin. 2. Entresto. 3. Multivitamin. 4. Lasix. 5. Plavix. 6. Carvedilol. 7. Lipitor. 8. Aspirin. 9. Eliquis. REVIEW OF SYSTEMS: A 10-point review of systems is reviewed and as above, otherwise negative. PHYSICAL EXAMINATION: VITAL SIGNS: Blood pressure 135/61, pulse 48, and temperature 97.6. crackles noted bilaterally. GENERAL: Patient is a pleasant male, who is in no acute distress. The patient appears their stated age. NEUROLOGIC: The patient is alert and oriented x3 with no focal neurologic deficits. HEENT: Sclerae without icterus. Mouth has moist mucous membranes with normal pallor. NECK: No JVD. Carotid upstroke brisk. No bruits bilaterally. LUNGS: Clear to auscultation with unlabored respirations. BACK: No scoliosis or kyphosis. CARDIAC: Regular rate and rhythm with normal S1 and S2. No S3 or S4 noted. No significant rubs, murmurs, thrills, or gallops noted throughout the precordium. PMI is not displaced. There is no parasternal heave. ABDOMEN: Soft, nontender, nondistended. No peritoneal signs present. No hepatosplenomegaly. No abnormal striae. EXTREMITIES: 2+ femoral and 2+ dorsalis pedis pulses. No cyanosis, clubbing, or edema. SKIN: No gross abnormalities. PERTINENT LABORATORY DATA: Hemoglobin 13.3 and hematocrit 41.5. IMPRESSION: 1. Nonsustained ventricular tachycardia. 2. Coronary artery disease. 3. Status post bypass surgery. 4. Diastolic heart failure. RECOMMENDATIONS: Mr. Bae' recent brief episode of nonsustained VT, likely related to low magnesium level. He has no previous history of syncope, presyncope, or associated symptoms. His LVEF on echo performed yesterday was within normal limits. He was supplemented with magnesium. Continue IV Lasix. He is improving. Further recommendations per Dr. Oscar Solis Job ID: [id number]
[2018-04-02] MEDS: Atorvastatin Calcium 40 MG TAB PO SCH (20:40)
[2018-04-03] MEDS: Furosemide 40 MG/4 ML VIAL SLOW IVP SCH (06:01)
[2018-04-03] MEDS: Aspirin 81 mg Enteric Coated Tablet PO SCH (08:13)
[2018-04-03] MEDS: metFORMIN 500 MG TAB PO SCH (08:13)
[2018-04-03] MEDS: Apixaban 5 MG TAB PO SCH (08:13)
[2018-04-03] MEDS: Alogliptin 25 MG TAB PO SCH (08:13)
[2018-04-03] MEDS: Carvedilol 6.25 MG TAB PO SCH (08:13)
[2018-04-03] MEDS: Clopidogrel Bisulfate 75 MG TAB PO SCH (08:14)
[2018-04-03] MEDS: Multivitamin W/ Minerals 1 TAB PO SCH (08:14)
[2018-04-03] MEDS: Famotidine 20 MG TAB PO SCH (08:14)
[2018-04-03] MEDS: Sacubitril 49 MG/Valsartan 51 MG TABLET PO SCH (08:15)
[2018-04-03] MEDS: Senokot S 8.6-50 MG TAB PO SCH (08:15)
[2018-04-03] MEDS: Insulin Regular 300 UNITS/3 ML VIAL SC PRN (08:15)
[2018-04-03] MEDS ORDERED: Carvedilol 6.25 MG TAB PO SCH ×3 (08:27→21:00)
[2018-04-03 12:10] VITALS: BP 159/67; TEMP 97.6
[2018-04-04] MEDS ORDERED: Furosemide 40 MG TAB PO SCH (07:30)
--- NOTE | 2018-04-07 13:24 | EKG ---
Test Reason : Blood Pressure : / mmHG Vent. Rate : 085 BPM Atrial Rate : 085 BPM P-R Int : 136 ms QRS Dur : 094 ms QT Int : 386 ms P-R-T Axes : 036 074 143 degrees QTc Int : 459 ms Normal sinus rhythm Abnormal ECG Confirmed by JANKI MOSELEY DO ([id number]), tape editor SANA KWONG ([id number]) on 04/07/2018 1:24:16 PM Referred By: Confirmed By:JANKI MOSELEY DO
== END 2018-04-03 13:08 | disposition home or self-care (01) | DRG 291 ==
LOC: ERS 10:12 → 2NO 11:40
PROVIDERS: ADMIT Internal Medicine; ATTEND Internal Medicine
PROC: B24BZZZ Ultrasonography of Heart with Aorta (ICD-10-PCS; principal; 2018-04-01)
DX: I13.0 Hypertensive heart and chronic kidney disease with heart failure and stage 1 through stage 4 chronic kidney disease, or unspecified chronic kidney disease (principal); I50.43 Acute on chronic combined systolic (congestive) and diastolic (congestive) heart failure; J96.01 Acute respiratory failure with hypoxia; I47.2 Ventricular tachycardia; N18.2 Chronic kidney disease, stage 2 (mild); E11.22 Type 2 diabetes mellitus with diabetic chronic kidney disease; Z79.84 Long term (current) use of oral hypoglycemic drugs; Z95.1 Presence of aortocoronary bypass graft; I25.5 Ischemic cardiomyopathy; Z91.14 Patient's other noncompliance with medication regimen; I48.0 Paroxysmal atrial fibrillation; Z79.01 Long term (current) use of anticoagulants; I73.9 Peripheral vascular disease, unspecified; E78.5 Hyperlipidemia, unspecified; Z79.82 Long term (current) use of aspirin; Z79.02 Long term (current) use of antithrombotics/antiplatelets
CPT/HCPCS: 36415; 36416; 71045; 80053; 83735; 83880; 84100; 84484; 85014; 85018; 85025; 85049; 93005; 93306; 93798; 94660; 94760; 96374; 99214; G0463; J1815; J1940; Q0162

== ENCOUNTER 2018-08-17 04:34 | Inpatient (IN) | payer MEDICARE ==
[2018-08-17] MEDS ORDERED: Magnesium 2 GM/50 ML BAG (IN WATER) ONE (04:48)
[2018-08-17] MEDS ORDERED: Nitroglycerin 2% Ointment 1 INCH/1 GM Packet ONE (04:48)
[2018-08-17] MEDS ORDERED: Acetaminophen 500 MG TAB ONE ×2 (04:48)
[2018-08-17 05:41] LABS: #Basophils 0.1 thou/uL (0.0-0.2); #Monocytes 0.5 thou/uL (0.11-0.59); #Neutrophils 5.4 thou/uL (1.40-6.50); %Basophils 0.9 % (0.0-1.0); %Eosinophils 0.3 % (0.0-10.0); %Lymphocytes 24.8 % (21.0-51.0); %Monocytes 6.5 % (0.0-10.0); %Neutrophils 67.5 % (42.0-75.0); Hemoglobin 11.4 g/dL (14.0-18.0); Mean Corpuscular HGB CONC 32.4 g/dL (32.0-36.0); Mean Corpuscular Hemoglobin 30.1 pg (27.0-31.0); Mean Corpuscular Volume 92.8 fL (78.0-98.0); Mean Platelet Volume 11.9 fL (7.4-10.4); Platelet Count 158 thou/uL (130-400); RBC Distribution Width 13.6 % (11.5-14.5); Red Blood Cell (RBC) Count 3.78 mill/uL (4.70-6.10); White Blood Cell (WBC) Count 8.1 thou/uL (4.8-10.8)
[2018-08-17 06:18] LABS: ALT (SGPT) 16 U/L (8-55); AST (SGOT) 28 U/L (5-34); Alcohol Less than 10 mg/dL (Less than 10); Alkaline Phosphatase 70 U/L (40-150); Anion Gap 18 mmol/L (10-20); BUN (Urea Nitrogen) 23 mg/dL (8.4-25.7); Calc. Creatinine Clearance 0 mL/min (70-130); Carbon Dioxide 18 mmol/L (23-31); Chloride 100 mmol/L (98-107); Estimated GFR-MDRD 64; Globulin 3.3 g/dL (2.4-3.5); Glucose 232 mg/dL (80-115); Potassium 4.9 mmol/L (3.5-5.1); Protein, Total 7.3 g/dL (5.8-8.1); Sodium 131 mmol/L (136-145)
[2018-08-17 06:56] LABS: CKMB 11.8 ng/mL (0-6.6)
[2018-08-17 07:15] LABS: INR-International Normal Ratio 1.2; PTT 36.1 SEC (22.9-36.1); Prothrombin Time 14.8 SEC (12.0-14.7)
--- NOTE | 2018-08-17 07:37 | RAD ---
CHEST 1 VIEW: Date: 08/17/18 INDICATION: Chest pain. COMPARISON: Prior exam dated 03/31/18. FINDINGS: Moderate cardiomegaly and post CABG change is stable. There is mild pulmonary vascular congestion. Th ere is mild interstitial edema. There are small bilateral pleural effusions. No acute osseous abnorma lity is evident. IMPRESSION: Mild CHF. POS: BH
[2018-08-17 07:47] LABS: Troponin I 4.152 ng/mL (< 0.028)
[2018-08-17] MEDS ORDERED: Ondansetron PF 4 MG/2 ML Vial IVP PRN (08:48)
[2018-08-17] MEDS ORDERED: Ondansetron ODT 4 MG TAB PO PRN (08:48)
[2018-08-17 08:52] VITALS: BMI 31.8
[2018-08-17] MEDS ORDERED: Prevnar 13-Val Conj/PF 0.5 ML SYRINGE IM ONE (09:15)
[2018-08-17] MEDS ORDERED: Acetaminophen 325 MG TAB PO PRN (10:11)
[2018-08-17] MEDS ORDERED: Senokot S 8.6-50 MG TAB PO PRN (10:11)
[2018-08-17] MEDS ORDERED: Dextrose 5% in Water 1,000 ML IV PRN (10:11)
[2018-08-17] MEDS ORDERED: Nitroglycerin 0.4 MG TAB (25 Tab Bottle) SL PRN (10:11)
[2018-08-17] MEDS ORDERED: Dextrose 50% Abboject 50 ML SYRINGE SLOW IVP PRN (10:11)
--- NOTE | 2018-08-17 10:14 | CON ---
DATE OF CONSULTATION: 08/17/2018 HISTORY OF PRESENT ILLNESS: The patient is a 68-year-old gentleman, who presented with palpitations and chest discomfort. The patient has a long history of coronary artery disease. He was seen initially in 1998. He underwent a cardiac catheterization,and was found to have diffuse 3-vessel coronary artery disease. The patient declined to undergo surgery and was placed on medical therapy. The patient underwent a repeat catheterization in 2006. He subsequently underwent coronary artery bypass graft surgery x3, KATZ to the LAD, saphenous vein graft to the diagonal and posterior descending artery. The patient subsequently has been on medical therapy. He was admitted in 2017 with atrial fibrillation. He subsequently underwent SARAH and cardioversion. The patient has been on chronic anticoagulation therapy. He was doing reasonably well until yesterday when he started drinking heavily. The patient states he had 6 beers yesterday afternoon. He subsequently developed palpitations and chest discomfort. He presented to the emergency room for further evaluation. The patient denies having any present chest discomfort. PAST MEDICAL HISTORY: 1. Coronary artery disease. 2. History of coronary artery bypass surgery. 3. History of peripheral vascular disease, status post aortofemoral bypass. 4. Hypertension. 5. Diabetes mellitus. 6. Ischemic cardiomyopathy. PAST SURGICAL HISTORY: Carotid endarterectomy, coronary artery bypass surgery, and bilateral femoral bypass. MEDICATIONS: See nursing list. SOCIAL HISTORY: Former smoker, heavy user of alcohol. ALLERGIES: NO KNOWN DRUG ALLERGIES. PHYSICAL EXAMINATION: GENERAL: Obese gentleman, in no acute distress. VITAL SIGNS: Blood pressure 135/67. NECK: Showed no jugular venous distention. LUNGS: Clear to auscultation. HEART: Regular rate and rhythm. Normal S1 and S2. 1/6 systolic murmur. ABDOMEN: Nondistended. EXTREMITIES: Show no edema. VASCULAR: Radial pulses are 2+. LABORATORY DATA: Sodium 131, potassium 4.9, chloride 100, bicarbonate 18, BUN 23, creatinine 1.15, CPK-MB 11.8. Troponin was 4.1. His white blood cell count is 8.1, hemoglobin 11.4, hematocrit 35.1, and platelets are 158. His EKG revealed rapid atrial flutter with left bundle-branch block. IMPRESSION: 1. Recurrent paroxysmal atrial fibrillation/flutter. 2. Severe coronary artery disease. 3. History of coronary artery bypass surgery. 4. Status post bifemoral bypass. 5. Diabetes mellitus. 6. Dyslipidemia. 7. History of ischemic cardiomyopathy. This gentleman presented after consuming excessive amounts of alcohol. He went into atrial fibrillation/flutter. He has evidence of a non-Q-wave myocardial infarction. The patient's chest pain is resolved on IV Cardizem. I would recommend electrical cardioversion. PLAN: 1. Proceed with SARAH and cardioversion. 2. Discontinue use of alcohol. This is a critical care note, time, 1 hour. Job ID: [id number] MTDD
--- NOTE | 2018-08-17 10:59 | HP ---
CHIEF COMPLAINT: Severe substernal chest pain. HISTORY OF PRESENT ILLNESS: A 68-year-old male with known history of coronary artery disease, status post coronary artery bypass graft, chronic congestive heart failure, atrial fibrillation, status post cardioversion, who is on chronic anticoagulation with Eliquis, who was brought in by EMS due to acute onset of severe substernal chest pain. The patient reportedly binged on beers yesterday, took about 10 beers from 4:00 p.m. to 10:00 p.m. Around 10:00 p.m. last night, he started having severe substernal chest pain, which was associated with palpitations. The patient reported that the substernal chest pain was very severe, the highest he has ever felt, worse than prior heart attack, was radiating to the left shoulder associated with shortness of breath, palpitations, and two episodes of emesis. EMS noted the patient was in atrial flutter and they gave the patient Cardizem en route to the hospital following which he was going in and out of atrial flutter with AV conduction delay. The patient received aspirin, magnesium sulfate, and Nitro-Bid in the emergency room on presentation and reported that this substernal chest pain has subsided, though he continues to have left shoulder pain which he rates at 2/10 currently. Evaluation in the ER showed that the patient was in atrial fibrillation with RVR with rate in 130s. The patient was subsequently started on Cardizem infusion. Further evaluation with subsequent EKG showed T inversion as well as ST changes. Troponin also was noted to be elevated at 1.19. Given that the patient was already on anticoagulation with Eliquis, he was not started on Lovenox or heparin. He was subsequently admitted to the ICU for further evaluation and treatment as recommended by Cardiology. PAST MEDICAL HISTORY: 1. Coronary artery disease, status post CABG in 2006. 2. Chronic systolic heart failure. 3. Type 2 diabetes mellitus. 4. Paroxysmal atrial fibrillation, on chronic anticoagulation as well as prior cardioversion. 5. Peripheral vascular disease. 6. Hypertension. PAST SURGICAL HISTORY: 1. Coronary artery bypass grafting in 2006. 2. Bilateral carotid endarterectomy. 3. Femoral bypass surgery. 4. SARAH cardioversion in March 2017. FAMILY HISTORY: Significant for diabetes, hypertension, and heart disease in both parents. SOCIAL HISTORY: The patient is . He lives alone. He is a former smoker, who stopped about 2 years ago after a long period of heavy smoking. He drinks occasionally. He used to drink heavily, but reported that currently only drinks at intervals. He reportedly took about 10 beers prior to onset of symptoms. He denied recreational drug use. ALLERGIES: NO KNOWN DRUG ALLERGIES REPORTED. CURRENT HOME MEDICATIONS: 1. Eliquis 5 mg p.o. b.i.d. 2. Lipitor 40 mg p.o. daily at bedtime. 3. Carvedilol 12.5 mg p.o. b.i.d. 4. Nexium 20 mg p.o. daily. 5. Lasix 20 to 40 mg p.o. daily. 6. Metformin 1000 mg p.o. b.i.d. 7. Potassium chloride 20 mEq p.o. daily. 8. Entresto 97/103 mg tablet one tablet p.o. b.i.d. REVIEW OF SYSTEMS: A 12-point review of system performed was negative other than pertinent positives and negatives included in the history of present illness. PHYSICAL EXAMINATION: VITAL SIGNS: Temperature 98.3, pulse 92, blood pressure 135/67, respiratory rate 20, SpO2 98 on room air. GENERAL: Obese male, in no obvious distress. Afebrile. Anicteric. Acyanotic. HEENT: Normocephalic, atraumatic. Pupils are reacting to light. NECK: Short thick neck with excess subcu tissue noticed. No masses or JVD appreciated. CARDIOVASCULAR: Irregular rhythm and rate with no obvious murmur appreciated. RESPIRATORY: Good air entry bilaterally with some transmitted sounds. No obvious crackle or rhonchi was appreciated. There is no use of accessory muscles. GI: Abdomen is obese, soft, nontender, nondistended with normal bowel sounds. EXTREMITIES: Mild bilateral leg edema noticed. No erythema. NEUROLOGIC: Conscious, alert, oriented x3 with appropriate mental status. Cranial nerves 2 through 12 are intact. The patient moves all extremities. DIAGNOSTIC DATA: CBC showed WBC count of 8.1, hemoglobin of 11.4, MCV of 92.8, platelet of 158. Coagulation panel showed PT 14.8, INR 1.2, APTT 36.1. CMP showed sodium 131, potassium 4.9, chloride 100, CO2 of 18, BUN 23, creatinine 1.15, glucose 232, calcium 9.0, total bilirubin 1.0, AST 28, ALT 16, alkaline phosphatase 70, total protein 7.3, albumin 4.0, globulin 3.3. Cardiac enzymes showed CK-MB 11.8 and troponin 1.9. Repeat troponin 1 hour later was 4.152. BNP is 576. TSH is 2.204. Plasma alcohol level was less than 10. Initial EKG done on presentation showed atrial fibrillation with rapid ventricular response of 130 with some PVCs. Subsequent three EKGs showed atrial fibrillation with T-wave inversion as well as ST changes. Chest x-ray showed moderate cardiomegaly as well as post CABG changes in addition to mild pulmonary vascular congestion and mild interstitial edema as well as small bilateral pleural effusion. ASSESSMENT: 1. Acute [id number] myocardial infarction. The patient has multiple risk factors including prior coronary artery disease, status post CABG, hypertension, diabetes, and hyperlipidemia. 2. Paroxysmal atrial fibrillation with rapid ventricular response. Rate control is better with Cardizem infusion. 3. Chronic systolic and diastolic heart failure with possible acute decompensation from acute myocardial infarction. 4. Type 2 diabetes with hyperglycemia. 5. Peripheral artery disease, status post femoral bypass. 6. Obesity. 7. Presumed obstructive sleep apnea: The patient reported snoring as well as apneic episodes while sleeping. 8. Hypertension: Blood pressure control is acceptable at this time. 9. Alcohol abuse. 10. Chronic anticoagulation with Eliquis. 11. Chronic kidney disease stage 2. 12. Dyslipidemia. PLAN: 1. We will continue antiplatelets and Cardizem infusion. We will defer anticoagulation to Cardiology. 2. We will start the patient on sliding scale insulin. We will also get hemoglobin A1c. 3. We will keep the patient n.p.o. 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 4. We continue antianginal and analgesics as needed. 5. Oxygen supplementation as needed will be provided. 6. Code status, full code. The patient's daughter is the surrogate decision maker. Job ID: [id number]
[2018-08-17 12:45] LABS: Troponin I 11.478 ng/mL (< 0.028)
[2018-08-17] MEDS ORDERED: Morphine 4 MG/ML VIAL ONE (13:48)
[2018-08-17] MEDS: Nitroglycerin 2% Ointment 1 INCH/1 GM Packet TOP SCH ×2 (13:49→21:03)
--- NOTE | 2018-08-17 13:55 | OP ---
DATE OF PROCEDURE: 08/17/2018 PROCEDURE PERFORMED: Transesophageal echocardiogram. INDICATIONS: A 68-year-old gentleman with typical atrial flutter. DESCRIPTION OF PROCEDURE: The patient was taken to the PACU. The patient was sedated by Anesthesiology. A transesophageal probe was placed into the distal esophagus and stomach. Echocardiographic images were obtained. The transesophageal probe was removed. FINDINGS: 1. Mild decrease in left ventricular systolic function. 2. Left atrial enlargement. 3. Moderate mitral regurgitation. 4. Moderate tricuspid regurgitation. 5. No thrombus noted in the left atrium or left atrial appendage. 6. Atherosclerotic debris in the descending aorta. IMPRESSION: No formed thrombus in the left atrium or left atrial appendage. Job ID: [id number]
--- NOTE | 2018-08-17 13:58 | OP ---
DATE OF PROCEDURE: 08/17/2018 PROCEDURE PERFORMED: Electrical cardioversion. INDICATIONS: A 68-year-old gentleman with typical atrial flutter. DESCRIPTION OF PROCEDURE: The patient was taken to the PACU. The patient was sedated by Anesthesiology. The patient was shocked with 50 joules and then 200 joules of synchronized electricity. The patient was converted to normal sinus rhythm. IMPRESSION: Successful electrical cardioversion. Job ID: [id number]
[2018-08-17] MEDS ORDERED: Carvedilol 6.25 MG TAB PO SCH (14:30)
[2018-08-17] MEDS: HYDROcodone/Acetaminophen 5/325 mg Tablet PO PRN (15:40)
[2018-08-17] MEDS ORDERED: PROPOFOL 200 MG/20 ML VIAL ONE (16:40)
[2018-08-17] MEDS ORDERED: Lidocaine 1% PF 5 ML VIAL ONE (16:40)
[2018-08-17] MEDS: Carvedilol 6.25 MG TAB PO SCH (18:17)
[2018-08-17] MEDS ORDERED: Non-Formulary Item 1 EACH (Sacubitril/Valsartan [Entresto 97 Mg-103 Mg Tablet] 1 TAB) PO SCH (21:00)
[2018-08-17] MEDS ORDERED: Atorvastatin Calcium 40 MG TAB PO SCH (21:00)
[2018-08-17] MEDS ORDERED: Apixaban 5 MG TAB PO SCH (21:00)
[2018-08-17] MEDS: Sacubitril 49 MG/Valsartan 51 MG TABLET PO SCH (21:03)
[2018-08-17] MEDS: Apixaban 5 MG TAB PO SCH (21:03)
[2018-08-17] MEDS: HumaLOG 300 UNITS/3 ML VIAL SC PRN (21:33)
[2018-08-18 04:47] LABS: #Basophils 0.1 thou/uL (0.0-0.2); #Lymphocytes 1.7 thou/uL (1.20-3.40); #Monocytes 0.6 thou/uL (0.11-0.59); #Neutrophils 4.6 thou/uL (1.40-6.50); %Basophils 0.8 % (0.0-1.0); %Eosinophils 0.7 % (0.0-10.0); %Lymphocytes 23.8 % (21.0-51.0); %Monocytes 8.8 % (0.0-10.0); %Neutrophils 65.9 % (42.0-75.0); Hemoglobin 10.7 g/dL (14.0-18.0); Mean Corpuscular HGB CONC 32.7 g/dL (32.0-36.0); Mean Corpuscular Hemoglobin 30.2 pg (27.0-31.0); Mean Corpuscular Volume 92.2 fL (78.0-98.0); Mean Platelet Volume 11.7 fL (7.4-10.4); Platelet Count 158 thou/uL (130-400); RBC Distribution Width 13.6 % (11.5-14.5); Red Blood Cell (RBC) Count 3.54 mill/uL (4.70-6.10)
[2018-08-18 05:08] LABS: Anion Gap 12 mmol/L (10-20); BUN (Urea Nitrogen) 20 mg/dL (8.4-25.7); Calc. Creatinine Clearance 105 mL/min (70-130); Calcium 9.2 mg/dL (7.8-10.44); Carbon Dioxide 26 mmol/L (23-31); Cardiac Risk 3.9 (Less than 4.5); Chloride 103 mmol/L (98-107); Cholesterol 122 mg/dl (< 200 Desired); Estimated GFR-MDRD 71; Glucose 172 mg/dL (80-115); HDL Cholesterol 31 mg/dL (>60 Neg Risk); LDL Cholesterol, Calculated 45 mg/dL; Potassium 4.3 mmol/L (3.5-5.1); Sodium 137 mmol/L (136-145); Triglycerides 228 mg/dL (Less than 150)
[2018-08-18] MEDS: Nitroglycerin 2% Ointment 1 INCH/1 GM Packet TOP SCH (06:40)
[2018-08-18] MEDS ORDERED: Aspirin 325 mg Enteric Coated Tablet PO SCH (09:00)
[2018-08-18] MEDS: Carvedilol 6.25 MG TAB PO SCH ×2 (09:18→17:14)
[2018-08-18] MEDS: Apixaban 5 MG TAB PO SCH ×2 (09:18→21:14)
[2018-08-18] MEDS: Sacubitril 49 MG/Valsartan 51 MG TABLET PO SCH ×2 (09:19→21:15)
[2018-08-18] MEDS: Aspirin 81 mg Enteric Coated Tablet PO SCH (09:19)
[2018-08-18] MEDS: Clopidogrel Bisulfate 75 MG TAB PO SCH (09:19)
[2018-08-18] MEDS: Morphine 2 MG/ML SYRINGE SLOW IVP PRN ×2 (09:26→21:22)
[2018-08-18] MEDS: HYDROcodone/Acetaminophen 5/325 mg Tablet PO PRN ×2 (09:27→21:20)
[2018-08-18] MEDS: HumaLOG 300 UNITS/3 ML VIAL SC PRN ×3 (11:49→21:31)
[2018-08-18] MEDS: Atorvastatin Calcium 40 MG TAB PO SCH (21:14)
--- NOTE | 2018-08-18 23:50 | PDOC.PN ---
- Subjective Encounter Start Date: 08/18/18 Encounter Start Time: 12:30 Doing ok post cardioversion. no pain. - Objective Resuscitation Status - Order Detail: 08/17/18 10:11 Resuscitation Status Routine Resuscitation Status: FULL: Full Resuscitation Vital Signs & Weight: Vital Signs (12 hours) Temp Pulse Pulse BP BP BP Pulse Ox 08/18/18 20:00 98 F 97 08/18/18 19:32 96 08/18/18 17:14 97/59 L 08/18/18 16:00 98.8 F 08/18/18 12:56 78 89 151/50 H 111/73 08/18/18 12:00 98.3 F Pulse Ox Pulse Ox 08/18/18 20:00 08/18/18 19:32 08/18/18 17:14 08/18/18 16:00 08/18/18 12:56 98 100 08/18/18 12:00 Weight Weight 234 lb 5.622 oz Most Recent Monitor Data Heart Rate from ECG 82 NIBP 118/74 NIBP BP-Mean 88 Respiration from ECG 13 SpO2 96 I&O: 08/17/18 08/18/18 08/19/18 06:59 06:59 06:59 Intake Total 776.4 830 Output Total 2050 750 Balance -1273.6 80 Result Diagrams: 08/18/18 03:54 08/18/18 03:54 Additional Labs: Accuchecks 08/18/18 08/18/18 08/18/18 21:32 15:59 11:30 POC Glucose 180 H 181 H 219 H 08/18/18 06:15 POC Glucose 160 H Phys Exam - Physical Examination Constitutional: NAD Respiratory: no wheezing, no rales, clear to auscultation bilateral Cardiovascular: RRR, no significant murmur, no rub Gastrointestinal: soft, non-tender, no distention trace edema Psychiatric: normal affect Dx/Plan (1) Demand ischemia Code(s): I24.8 - OTHER FORMS OF ACUTE ISCHEMIC HEART DISEASE Status: Acute Comment: from Afib with RVR. better now. Trop peaked at 0.5 (2) New onset atrial fibrillation Code(s): I48.91 - UNSPECIFIED ATRIAL FIBRILLATION Status: Acute Comment: rate betteron cardizem. for DC cardioversion today if SARAH clear of clot (3) CAD (coronary artery disease) Code(s): I25.10 - ATHSCL HEART DISEASE OF [place] CORONARY ARTERY W/O ANG PCTRS Status: Chronic Qualifiers: (4) Diabetes mellitus Code(s): E11.9 - TYPE 2 DIABETES MELLITUS WITHOUT COMPLICATIONS Status: Chronic Qualifiers: (5) HTN (hypertension) Code(s): I10 - ESSENTIAL (PRIMARY) HYPERTENSION Status: Chronic Qualifiers: - Plan * . cardiology following s/p cardioversion. doing well. remains in NSR. likely to tele today. Statin, Aspirin, Eliquis, beta cali, Entresto. Blood sugar adequate.
[2018-08-19] MEDS: HumaLOG 300 UNITS/3 ML VIAL SC PRN ×4 (05:52→16:53)
[2018-08-19] MEDS: Carvedilol 6.25 MG TAB PO SCH ×2 (09:29→16:53)
[2018-08-19] MEDS: Clopidogrel Bisulfate 75 MG TAB PO SCH (09:30)
[2018-08-19] MEDS: Apixaban 5 MG TAB PO SCH ×2 (09:30→21:46)
[2018-08-19] MEDS: Aspirin 81 mg Enteric Coated Tablet PO SCH (09:30)
[2018-08-19] MEDS ORDERED: Furosemide 40 MG/4 ML VIAL SLOW IVP SCH (09:30)
[2018-08-19] MEDS: HYDROcodone/Acetaminophen 5/325 mg Tablet PO PRN (09:54)
--- NOTE | 2018-08-19 10:22 | CON ---
DATE OF CONSULTATION: 08/19/2018 SERVICE: Pulmonary Medicine. REASON FOR CONSULT: ICU patient. HISTORY OF PRESENT ILLNESS: The patient is a 68-year-old white male with past medical history significant for a 5-day history of episodic chest discomfort and left arm discomfort. It occurred whenever he was lying flat. He seemed to be better whenever he would get up and move around. Ultimately, he had a very severe episode that did not clear. As such, he presented to the Emergency Department on August 17, 2018. He was discovered to be in atrial flutter. This was a typical atrial flutter. He was loaded up with some medication, but it persisted and so , he went for a SARAH followed by cardioversion. This was performed on August 17, 2018. Since then, he has been maintained in sinus rhythm. He denies any current fevers, chills, nausea, vomiting, diarrhea, or shortness of breath. The chest discomfort and arm discomfort have completely resolved. This morning, he woke up with slightly increasing shortness of breath. He denies having any cough. He has a good appetite without vomiting or diarrhea. PAST MEDICAL HISTORY: 1. Coronary artery disease. 2. Chronic systolic heart failure. 3. Type 2 diabetes mellitus. 4. Hypertension. 5. Dyslipidemia. 6. Atrial fibrillation, paroxysmal, with history of flutter, status post cardioversion. 7. Peripheral vascular disease. PAST SURGICAL HISTORY: 1. Coronary artery bypass graft in 2006. 2. Carotid endarterectomy, bilateral. 3. Femoral bypass surgery. 4. Transesophageal echocardiogram with subsequent cardioversion in March 2017 , and in July 2018. FAMILY HISTORY: Noncontributory. SOCIAL HISTORY: Negative for current alcohol, tobacco, or illicit drug use. He has a greater than 50-pack year history of smoking, but quit about 2 years ago. He drinks on occasion and occasionally to excess. He denies any exposure to chemicals, dust, asbestos, or tuberculosis. ALLERGIES: NO KNOWN DRUG ALLERGIES. MEDICATIONS: List of his inpatient medications were reviewed. I have increased his Lasix slightly. REVIEW OF SYSTEMS: General, head, ears, eyes, nose, throat, cardiovascular, respiratory, GI, , musculoskeletal, neurologic, and skin are negative except as mentioned in HPI. PHYSICAL EXAMINATION: VITAL SIGNS: Afebrile, pulse 89, blood pressure 132/103, respirations 20, and saturations 100% on 2 L nasal cannula. GENERAL: The patient is awake and alert, in no apparent distress. LUNGS: Decent air entry. Dependent crackles are noted. There is no prolonged expiratory phase. No wheezing is appreciated. HEART: Normal rate. Regular. ABDOMEN: Soft, nontender, and nondistended. Bowel sounds are positive. MUSCULOSKELETAL: No cyanosis or clubbing. There is 1 to 2+ pitting in the bilateral lower extremities, which is symmetric. NEUROLOGIC: Grossly nonfocal. LABORATORY DATA: Basic metabolic profile is essentially unremarkable. CBC is unremarkable except for hemoglobin of 10.7. INR 1.2. Liver function studies were previously unremarkable. BNP 576, which is in historic low. Troponin is 11.5. TSH 2.2. Plasma alcohol level was unremarkable. IMAGING: Chest x-ray demonstrates pulmonary vascular congestion. Small bilateral pleural effusions are likely present. No overt consolidating changes are appreciated. Flattening of the bilateral diaphragm is suggestive of a little element of obstructive airflow limitation. Cardiac silhouette is enlarged, though this is an AP film. ASSESSMENT: 1. Acute hypoxic respiratory failure. 2. Atrial flutter with rapid ventricular response, status post cardioversion, returned to normal sinus rhythm. 3. Acute on chronic systolic and diastolic heart failure. 4. Non-ST elevation myocardial infarction. 5. Obstructive sleep apnea, quite likely. 6. Chronic obstructive pulmonary disease without obvious exacerbation currently. DISCUSSION AND PLAN: I will initiate the patient on p.r.n. DuoNebs. We will diurese the patient to euvolemia. He would benefit from a formal outpatient polysomnogram, and pulmonary function studies to determine whether or not he has significant obstructive airflow limitation contributing to his dyspnea that limits his activity or sleep apnea. From my perspective, he is stable for transition out of the hospital or transition to the telemetry unit. I will follow, if he remains in this location, but when he leaves, I will sign off. Please call with additional questions or concerns through time. 70 minutes have been devoted to this patient in various activities. I personally reviewed all imaging studies and laboratory data noted within this document. For fifty percent of this time, I was interacting with the patient at the bedside or coordinating care with the care team. For the remainder of the time I was immediately available to the patient in the hospital unit. Job ID: [id number] [facility]
[2018-08-19] MEDS: Sacubitril 49 MG/Valsartan 51 MG TABLET PO SCH ×2 (10:41→21:46)
--- NOTE | 2018-08-19 11:23 | PDOC.PN ---
- Subjective Encounter Start Date: 08/19/18 Encounter Start Time: 11:22 Subjective: complaining of some difficulty breathing. -: No chest pain or fever. - Objective Resuscitation Status - Order Detail: 08/17/18 10:11 Resuscitation Status Routine Resuscitation Status: FULL: Full Resuscitation Vital Signs & Weight: Vital Signs (12 hours) Temp BP Pulse Ox 08/19/18 09:29 132/103 H 08/19/18 08:00 96 08/19/18 05:00 98 F 08/19/18 00:00 97.7 F 96 Weight Weight 228 lb 6.382 oz Most Recent Monitor Data Heart Rate from ECG 90 NIBP 157/42 NIBP BP-Mean 80 Respiration from ECG 25 SpO2 100 I&O: 08/18/18 08/19/18 08/20/18 06:59 06:59 06:59 Intake Total 776.4 1030 60 Output Total 2050 1125 400 Balance -1273.6 -95 -340 Result Diagrams: 08/18/18 03:54 08/18/18 03:54 Additional Labs: Accuchecks 08/19/18 08/19/18 08/18/18 08:53 05:51 21:32 POC Glucose 168 H 195 H 180 H 08/18/18 08/18/18 15:59 11:30 POC Glucose 181 H 219 H Phys Exam - Physical Examination Constitutional: NAD obese, afebrile and with no distress HEENT: moist MMs Neck: supple short thick neck fair air entry bilaterally with some transmitted sound Cardiovascular: RRR Gastrointestinal: soft, non-tender, no distention, positive bowel sounds obese mild bilateral leg edema Neurological: non-focal, moves all 4 limbs Psychiatric: A&O x 3 Dx/Plan (1) NSTEMI (non-ST elevated myocardial infarction) Code(s): I21.4 - NON-ST ELEVATION (NSTEMI) MYOCARDIAL INFARCTION Status: Acute (2) Acute on chronic combined systolic and diastolic congestive heart failure Code(s): I50.43 - ACUTE ON CHRONIC COMBINED SYSTOLIC AND DIASTOLIC HRT FAIL Status: Acute (3) Paroxysmal atrial flutter Code(s): I48.92 - UNSPECIFIED ATRIAL FLUTTER Status: Acute (4) CAD (coronary artery disease) Code(s): I25.10 - ATHSCL HEART DISEASE OF [place] CORONARY ARTERY W/O ANG PCTRS Status: Chronic Qualifiers: (5) HTN (hypertension) Code(s): I10 - ESSENTIAL (PRIMARY) HYPERTENSION Status: Chronic Qualifiers: (6) NADEEM (obstructive sleep apnea) Code(s): G47.33 - OBSTRUCTIVE SLEEP APNEA (ADULT) (PEDIATRIC) Status: Acute Comment: Suspected (7) Diabetes mellitus Code(s): E11.9 - TYPE 2 DIABETES MELLITUS WITHOUT COMPLICATIONS Status: Chronic Qualifiers: (8) Paroxysmal atrial fibrillation Code(s): I48.0 - PAROXYSMAL ATRIAL FIBRILLATION Status: Acute - Plan Agree with diuretic therapy. -: Continue rate control medication and chronic anticoagulation -: Monitor CBC and BMP -: Transfer to tele -: Other treatment as per cardiology. Will need outpatient sleep study * .
--- NOTE | 2018-08-19 13:58 | EKG ---
Test Reason : REPEAT Blood Pressure : / mmHG Vent. Rate : 085 BPM Atrial Rate : 271 BPM P-R Int : 000 ms QRS Dur : 100 ms QT Int : 380 ms P-R-T Axes : 270 085 192 degrees QTc Int : 452 ms Atrial flutter with variable A-V block Abnormal ECG Confirmed by SHAMIKA MCKENZIE ([id number]) on 08/19/2018 1:57:42 PM Referred By: Confirmed By:SHAMIKA MCKENZIE
--- NOTE | 2018-08-19 14:08 | EKG ---
Test Reason : POST SARAH/CARDIOVERSI Blood Pressure : / mmHG Vent. Rate : 079 BPM Atrial Rate : 079 BPM P-R Int : 158 ms QRS Dur : 096 ms QT Int : 368 ms P-R-T Axes : 041 076 180 degrees QTc Int : 421 ms Sinus rhythm with marked sinus arrhythmia Premature atrial complexes Abnormal ECG When compared with ECG of 17-AUG-2018 08:16, (Unconfirmed) Sinus rhythm has replaced Atrial flutter Confirmed by SHAMIKA MCKENZIE ([id number]) on 08/19/2018 2:08:04 PM Referred By: CYNTHIA Confirmed By:SHAMIKA MCKENZIE
[2018-08-19] MEDS: Atorvastatin Calcium 40 MG TAB PO SCH (21:48)
--- NOTE | 2018-08-19 23:45 | RAD ---
PORTABLE CHEST ONE VIEW: Date: 08-19-18 Time: 11:29 p.m. History: Chest pain. FINDINGS: Comparison is made with exam of 08-17-18. There are changes of median sternotomy. The heart is enlarged. The lungs are well expanded without pn eumothoraces or large effusions. There is mild haziness in the right lower lobe suspicious for infilt rate. POS: [facility]
[2018-08-20] MEDS: Cefepime 2 GM in Sodium Chloride 0.9% 100 ML IVPB SCH ×2 (01:59→14:15)
[2018-08-20 05:55] LABS: Anion Gap 12 mmol/L (10-20); BUN (Urea Nitrogen) 15 mg/dL (8.4-25.7); Calc. Creatinine Clearance 121 mL/min (70-130); Calcium 8.9 mg/dL (7.8-10.44); Carbon Dioxide 26 mmol/L (23-31); Chloride 103 mmol/L (98-107); Estimated GFR-MDRD 87; Glucose 179 mg/dL (80-115); Magnesium 1.9 mg/dL (1.6-2.6); Potassium 4.5 mmol/L (3.5-5.1); Sodium 136 mmol/L (136-145)
[2018-08-20] MEDS ORDERED: Furosemide 40 MG/4 ML VIAL SLOW IVP STA (08:01)
[2018-08-20] MEDS ORDERED: Carvedilol 6.25 MG TAB PO SCH (08:18)
[2018-08-20] MEDS: Apixaban 5 MG TAB PO SCH ×2 (08:58→21:52)
[2018-08-20] MEDS: Clopidogrel Bisulfate 75 MG TAB PO SCH (08:58)
[2018-08-20] MEDS ORDERED: Furosemide 40 MG/4 ML VIAL SLOW IVP SCH ×2 (09:00→14:00)
[2018-08-20] MEDS: Spironolactone 25 MG TAB PO SCH (09:03)
[2018-08-20] MEDS: Carvedilol 25 MG TAB PO SCH ×2 (09:03→17:48)
[2018-08-20] MEDS: Sacubitril 49 MG/Valsartan 51 MG TABLET PO SCH ×2 (09:04→21:51)
[2018-08-20] MEDS: Carvedilol 6.25 MG TAB PO SCH (09:53)
[2018-08-20] MEDS: Aspirin 81 mg Enteric Coated Tablet PO SCH (09:53)
--- NOTE | 2018-08-20 09:58 | PDOC.PN ---
- Subjective Encounter Start Date: 08/20/18 Encounter Start Time: 09:57 Subjective: Had worsening of SOB associated with orthopnea last night. -: Still on oxygen. - Objective Resuscitation Status - Order Detail: 08/17/18 10:11 Resuscitation Status Routine Resuscitation Status: FULL: Full Resuscitation Vital Signs & Weight: Vital Signs (12 hours) Temp Pulse Resp BP BP Pulse Ox 08/20/18 09:53 146/65 H 08/20/18 09:16 97.6 F 74 18 139/60 97 08/20/18 07:51 77 20 08/20/18 03:35 98 F 77 18 151/65 H 97 08/20/18 02:24 80 20 98 Weight Weight 228 lb 6.382 oz Most Recent Monitor Data Heart Rate from ECG 78 NIBP 157/42 NIBP BP-Mean 80 Respiration from ECG 23 SpO2 97 I&O: 08/19/18 08/20/18 08/21/18 06:59 06:59 06:59 Intake Total 1030 1280 Output Total 1125 1495 Balance -95 -215 Result Diagrams: 08/18/18 03:54 08/20/18 04:49 Additional Labs: Accuchecks 08/20/18 08/19/18 08/19/18 05:32 20:30 16:53 POC Glucose 188 H 183 H 166 H 08/19/18 11:42 POC Glucose 217 H Phys Exam - Physical Examination obese HEENT: moist MMs Neck: supple Short thick neck fair air entry, decreased at the bases Cardiovascular: RRR Gastrointestinal: soft, non-tender, no distention, positive bowel sounds mild right and moderate left leg edema Neurological: non-focal, moves all 4 limbs Psychiatric: A&O x 3 Dx/Plan (1) Acute respiratory failure with hypoxia Code(s): J96.01 - ACUTE RESPIRATORY FAILURE WITH HYPOXIA Status: Acute (2) NSTEMI (non-ST elevated myocardial infarction) Code(s): I21.4 - NON-ST ELEVATION (NSTEMI) MYOCARDIAL INFARCTION Status: Acute (3) Acute on chronic combined systolic and diastolic congestive heart failure Code(s): I50.43 - ACUTE ON CHRONIC COMBINED SYSTOLIC AND DIASTOLIC HRT FAIL Status: Acute (4) Paroxysmal atrial flutter Code(s): I48.92 - UNSPECIFIED ATRIAL FLUTTER Status: Acute (5) CAD (coronary artery disease) Code(s): I25.10 - ATHSCL HEART DISEASE OF [place] CORONARY ARTERY W/O ANG PCTRS Status: Chronic Qualifiers: (6) HTN (hypertension) Code(s): I10 - ESSENTIAL (PRIMARY) HYPERTENSION Status: Chronic Qualifiers: (7) NADEEM (obstructive sleep apnea) Code(s): G47.33 - OBSTRUCTIVE SLEEP APNEA (ADULT) (PEDIATRIC) Status: Acute Comment: Suspected (8) Diabetes mellitus Code(s): E11.9 - TYPE 2 DIABETES MELLITUS WITHOUT COMPLICATIONS Status: Chronic Qualifiers: (9) Paroxysmal atrial fibrillation Code(s): I48.0 - PAROXYSMAL ATRIAL FIBRILLATION Status: Acute (10) Moderate mitral regurgitation Code(s): I34.0 - NONRHEUMATIC MITRAL (VALVE) INSUFFICIENCY Status: Acute (11) Moderate tricuspid regurgitation Code(s): I07.1 - RHEUMATIC TRICUSPID INSUFFICIENCY Status: Acute - Plan Increase lasix to 40 bid IV -: Start aldactone -: monitor renal function, I/O and daily weights. -: Wean oxygen as tolerated. * .
[2018-08-20] MEDS ORDERED: Furosemide 100 MG/10 ML VIAL SLOW IVP SCH (11:45)
[2018-08-20] MEDS: HumaLOG 300 UNITS/3 ML VIAL SC PRN ×3 (12:19→21:53)
[2018-08-20] MEDS: Atorvastatin Calcium 40 MG TAB PO SCH (21:52)
[2018-08-21] MEDS: Cefepime 2 GM in Sodium Chloride 0.9% 100 ML IVPB SCH (01:55)
[2018-08-21 06:41] LABS: Anion Gap 13 mmol/L (10-20); BUN (Urea Nitrogen) 16 mg/dL (8.4-25.7); Calc. Creatinine Clearance 99 mL/min (70-130); Calcium 8.9 mg/dL (7.8-10.44); Carbon Dioxide 29 mmol/L (23-31); Chloride 101 mmol/L (98-107); Estimated GFR-MDRD 68; Glucose 159 mg/dL (80-115); Magnesium 1.9 mg/dL (1.6-2.6); Potassium 4.2 mmol/L (3.5-5.1); Sodium 139 mmol/L (136-145)
[2018-08-21] MEDS ORDERED: Furosemide 40 MG TAB PO SCH (07:30)
[2018-08-21 08:09] VITALS: BP 146/64; TEMP 97.6
[2018-08-21] MEDS: Aspirin 81 mg Enteric Coated Tablet PO SCH (08:10)
[2018-08-21] MEDS: Spironolactone 25 MG TAB PO SCH (08:10)
[2018-08-21] MEDS: Apixaban 5 MG TAB PO SCH (08:10)
[2018-08-21] MEDS: Clopidogrel Bisulfate 75 MG TAB PO SCH (08:10)
[2018-08-21] MEDS: Carvedilol 25 MG TAB PO SCH (08:10)
[2018-08-21] MEDS: Sacubitril 49 MG/Valsartan 51 MG TABLET PO SCH (08:10)
== END 2018-08-21 14:07 | disposition home or self-care (01) | DRG 280 ==
LOC: ERS 04:34 → CCU 08:31 → 2NO 08-19 13:58
PROVIDERS: ADMIT Hospitalist; ATTEND Hospitalist
PROC: B24BZZ4 Ultrasonography of Heart with Aorta, Transesophageal (ICD-10-PCS; principal; 2018-08-17)
PROC: 5A2204Z Restoration of Cardiac Rhythm, Single (ICD-10-PCS; 2018-08-17)
DX: I13.0 Hypertensive heart and chronic kidney disease with heart failure and stage 1 through stage 4 chronic kidney disease, or unspecified chronic kidney disease (principal); I21.4 Non-ST elevation (NSTEMI) myocardial infarction; J96.01 Acute respiratory failure with hypoxia; I50.43 Acute on chronic combined systolic (congestive) and diastolic (congestive) heart failure; I48.92 Unspecified atrial flutter; I25.10 Atherosclerotic heart disease of native coronary artery without angina pectoris; I48.0 Paroxysmal atrial fibrillation; E11.51 Type 2 diabetes mellitus with diabetic peripheral angiopathy without gangrene; E11.65 Type 2 diabetes mellitus with hyperglycemia; E78.5 Hyperlipidemia, unspecified; N18.2 Chronic kidney disease, stage 2 (mild); G47.33 Obstructive sleep apnea (adult) (pediatric); J44.9 Chronic obstructive pulmonary disease, unspecified; I07.1 Rheumatic tricuspid insufficiency; Z79.899 Other long term (current) drug therapy; Z95.1 Presence of aortocoronary bypass graft; Z79.01 Long term (current) use of anticoagulants; Z79.84 Long term (current) use of oral hypoglycemic drugs
CPT/HCPCS: 36415; 36416; 71045; 80048; 80053; 80061; 80307; 82553; 82947; 83735; 83880; 84443; 84484; 85025; 85379; 85610; 85730; 93005; 93010; 93312; 93798; 94640; J0692; J1940; J2270; J3475; J3490; J7620

== ENCOUNTER 2018-09-04 14:29 | Emergency (ER) | payer MEDICARE ==
[2018-09-04 15:34] LABS: #Basophils 0.1 thou/uL (0.0-0.2); #Lymphocytes 2.4 thou/uL (1.20-3.40); #Monocytes 0.7 thou/uL (0.11-0.59); #Neutrophils 5.3 thou/uL (1.40-6.50); %Basophils 0.8 % (0.0-1.0); %Eosinophils 0.6 % (0.0-10.0); %Lymphocytes 28.3 % (21.0-51.0); %Monocytes 7.7 % (0.0-10.0); %Neutrophils 62.6 % (42.0-75.0); Hemoglobin 13.1 g/dL (14.0-18.0); Mean Corpuscular HGB CONC 32.8 g/dL (32.0-36.0); Mean Corpuscular Hemoglobin 30.3 pg (27.0-31.0); Mean Corpuscular Volume 92.4 fL (78.0-98.0); Mean Platelet Volume 11.1 fL (7.4-10.4); Platelet Count 227 thou/uL (130-400); RBC Distribution Width 12.7 % (11.5-14.5); Red Blood Cell (RBC) Count 4.32 mill/uL (4.70-6.10); White Blood Cell (WBC) Count 8.5 thou/uL (4.8-10.8)
[2018-09-04 15:56] LABS: Anion Gap 16 mmol/L (10-20); BUN (Urea Nitrogen) 31 mg/dL (8.4-25.7); Calc. Creatinine Clearance 0 mL/min (70-130); Calcium 10.9 mg/dL (7.8-10.44); Carbon Dioxide 23 mmol/L (23-31); Chloride 105 mmol/L (98-107); Estimated GFR-MDRD 49; Glucose 99 mg/dL (80-115); Potassium 5.2 mmol/L (3.5-5.1); Sodium 139 mmol/L (136-145)
--- NOTE | 2018-09-08 16:05 | EKG ---
Test Reason : HYPOTENSION Blood Pressure : / mmHG Vent. Rate : 078 BPM Atrial Rate : 078 BPM P-R Int : 144 ms QRS Dur : 090 ms QT Int : 386 ms P-R-T Axes : 033 065 018 degrees QTc Int : 440 ms Normal sinus rhythm Normal ECG Confirmed by GABRIELA GAYLE ([id number]), editor [place] SANA KWONG ([id number]) on 09/08/2018 4:05:26 PM Referred By: DO GAYLE Confirmed By:GABRIELA GAYLE
== END 2018-09-04 18:42 | disposition home or self-care (01) ==
LOC: ERS 14:29
DX: I95.9 Hypotension, unspecified (principal); E86.0 Dehydration; I11.0 Hypertensive heart disease with heart failure; I50.9 Heart failure, unspecified; I25.2 Old myocardial infarction; E11.9 Type 2 diabetes mellitus without complications; Z87.891 Personal history of nicotine dependence; Z79.82 Long term (current) use of aspirin; Z79.899 Other long term (current) drug therapy; Z79.84 Long term (current) use of oral hypoglycemic drugs
CPT/HCPCS: 80048; 85025; 93005; 96360; 96361

== ENCOUNTER 2019-08-27 11:26 | Inpatient (IN) | payer MEDICARE ==
[2019-08-27] MEDS ORDERED: Morphine 4 MG/ML VIAL ONE (12:35)
[2019-08-27 12:59] LABS: ALT (SGPT) 9 U/L (8-55); AST (SGOT) 9 U/L (5-34); Albumin 3.8 g/dL (3.4-4.8); Alkaline Phosphatase 83 U/L (40-110); Anion Gap 14 mmol/L (10-20); BUN (Urea Nitrogen) 12 mg/dL (8.4-25.7); Bilirubin, Total 1.6 mg/dL (0.2-1.2); Calc. Creatinine Clearance 0 mL/min (70-130); Calcium 9.1 mg/dL (7.8-10.44); Carbon Dioxide 28 mmol/L (23-31); Chloride 103 mmol/L (98-107); Estimated GFR-MDRD 86; Glucose 137 mg/dL (80-115); Potassium 3.8 mmol/L (3.5-5.1); Sodium 141 mmol/L (136-145)
[2019-08-27 13:05] LABS: Globulin 3.8 g/dL (2.4-3.5); Protein, Total 7.6 g/dL (5.8-8.1)
[2019-08-27] MEDS ORDERED: Ondansetron PF 4 MG/2 ML Vial IVP PRN (14:33)
[2019-08-27] MEDS ORDERED: Sodium Chloride 0.9% 1,000 ML IV SCH (14:33)
[2019-08-27] MEDS ORDERED: Morphine 4 MG/ML VIAL SLOW IVP PRN (14:41)
[2019-08-27] MEDS ORDERED: Vancomycin 1.5 GRAM/300 ML BAG 1.5 GM in Premix Bag 1 BAG IVPB SCH ×2 (15:00→22:00)
[2019-08-27 15:09] VITALS: BMI 31.8
[2019-08-27] MEDS ORDERED: Senokot S 8.6-50 MG TAB PO PRN (15:42)
[2019-08-27] MEDS ORDERED: Acetaminophen 325 MG TAB PO PRN (15:42)
[2019-08-27] MEDS ORDERED: Dextrose 50% Abboject 50 ML SYRINGE SLOW IVP PRN (15:44)
[2019-08-27] MEDS ORDERED: Dextrose 5% in Water 1,000 ML IV PRN (15:44)
[2019-08-27] MEDS: glipiZIDE 5 MG TAB PO SCH (16:30)
[2019-08-27] MEDS: Carvedilol 25 MG TAB PO SCH (16:30)
[2019-08-27] MEDS: Piperacillin/Tazobactam 4.5 GM in Sodium Chloride 0.9% 100 ML IVPB SCH (17:15)
[2019-08-27] MEDS: Icosapent Ethyl 1 GM CAPSULE PO SCH (17:15)
--- NOTE | 2019-08-27 17:38 | ULT ---
Ultrasound Doppler duplex arterial left lower extremity: DATE: 08/27/2019 HISTORY: 69-year-old male with left lower extremity cellulitis, foot ulcers, and toe discoloration. TECHNIQUE: Grayscale, color-flow, and spectral analysis, of major arteries of left lower extremity. FINDINGS: 2.5 x 1 cm left groin pain-proximal thigh lymph node. Abnormal monophasic waveforms in all interrogated arteries. Prominent calcified atheromatous plaque visualized throughout all interrogated arteries. Peak systolic velocities: Common femoral: 30 cm/s Profundofemoral: Not visualized Superficial femoral, proximal: 40 cm/s Superficial femoral, mid: Difficult to visualize Superficial femoral, distal: 55 cm/s Popliteal, proximal: 20 cm/s Popliteal: Distal 35 cm/s Posterior tibial: Difficult to visualize flow Anterior tibial: 20 cm/s Dorsalis pedis: 20 cm/s IMPRESSION: 1. Atherosclerotic disease throughout all interrogated arteries. 2. Abnormal monophasic waveforms, and abnormally low velocities, throughout all interrogated arteries , consistent with high-grade arterial occlusive disease.
[2019-08-27] MEDS: Apixaban 5 MG TAB PO SCH (20:25)
[2019-08-27] MEDS: Sacubitril 49 MG/Valsartan 51 MG TABLET PO SCH (20:26)
--- NOTE | 2019-08-27 23:42 | HP ---
CHIEF COMPLAINT: Left lower extremity swelling. HISTORY OF PRESENT ILLNESS: The patient is a 69-year-old male with history of CAD, diabetes, peripheral vascular disease, who presents to the hospital with complaints of pain and swelling to his left lower extremity. The patient states that he initially had a blood blister on his base of his left great toe. The patient stated that at home he has been using alcohol and keeping it clean. This has been going on for the past month. He had another blister around the metatarsal of the left foot of the first toe and that has been going on for the past two months. However, two weeks ago, he started having a small blister, which has worsened around his left 5th toe. The patient states that he went to see his primary care doctor today because his left lower extremity kept on hurting him and swelling and also erythema. He denies any fevers or chills, any nausea, vomiting, or diarrhea. PAST MEDICAL HISTORY: As of the following; he has a history of CAD, status post CABG. He has a history of vascular disease. He has had grafts according to him. He also is diabetic. He has chronic back pain with intermittent leg numbness, hypertension, heart failure. REVIEW OF SYSTEMS: All negative except for the ones mentioned above in the HPI. PAST SURGICAL HISTORY: He has had a CABG x3, bilateral enterectomy, femoral bypass surgery. He has had SARAH cardioversion in March of 2017. FAMILY HISTORY: Significant for diabetes, hypertension, heart disease in both parents. SOCIAL HISTORY: He is a former smoker. He used to smoke two or three packs a day, stopped about 2-3 years ago. Occasional alcohol use. Denies any drug use. He is a full code. He lives alone. ALLERGIES: NO KNOWN DRUG ALLERGIES. MEDICATIONS: As of the following. He is on, 1. Eliquis 5 mg twice a day. 2. Aspirin 81 mg daily. 3. Carvedilol 12.5 twice a day. 4. Clopidogrel 75 mg daily. 5. Glipizide 5 mg twice a day. 6. Entresto one p.o. b.i.d. 7. Torsemide 20 mg daily. PHYSICAL EXAMINATION: VITAL SIGNS: Temperature 97.8, pulse 71, respiratory rate 19, oxygen saturation 97% on room air, and blood pressure 150/77. GENERAL: He is awake, alert, and oriented x3. Does not appear in distress. CV: S1 and S2 present. No murmurs, rubs, or gallops. LUNGS: Clear to auscultation. No rhonchi or wheezes noted. ABDOMEN: Obese. Bowel sounds are present x2. EXTREMITIES: I was unable to feel lower extremity pulses. His left lower extremity has significant erythema tracking up all the way to his left martinez. He does have three crusted wounds, the first and second are around the base of the great toe and the third is on the lateral aspect of his pinky toe. Sensation adamson, he is unable to feel when I touch both of his lower extremities, however, he is able to move them and some swelling and edema noted to his left greater than right. NEUROVASCULAR: Again no focal deficits. He is able to move everything, but the sensation is decreased on the left and the right lower extremity. SKIN: As I mentioned, he does have those three wounds on his left lower extremity. LABORATORY RESULTS: WBCs of 11.1, hemoglobin of 12.2, hematocrit of 39.8, platelets of 183. Chemistry; sodium of 141, potassium of 3.8, BUN of 12, and creatinine 0.88. ASSESSMENT AND PLAN: The patient is a 69-year-old male, who presents to the hospital with complaints of left lower extremity swelling and pain. 1. Cellulitis. We will get arterial Dopplers. It looks like he already has had femoral bypasses in the past. He has a history of smoking. He is at a very high risk of claudication. We will go ahead and get vascular Dopplers. We will put him on Zosyn and vancomycin. I consulted ID. He may require surgical consultation. I will also get an MRI to rule out osteo. Apparently, he did have foot x-ray done that we does not opt, however, I was told that there was no osteo noted on the x-ray. However, given his risk of coronary artery disease, vascular disease, smoking history, and diabetes, he is a high risk and we will continue to monitor. 2. Coronary artery disease. We will continue his home medications. 3. Diabetes. We will continue his home medications. We will put him on sliding scale insulin also. 4. History of atrial fibrillation, status post cardioversion. We will continue his Eliquis. 5. Diastolic heart failure, compensated. We will continue his home medications. 6. Deep venous thrombosis prophylaxis. He is already on Eliquis. Job ID: [id number]
[2019-08-28] MEDS: Piperacillin/Tazobactam 4.5 GM in Sodium Chloride 0.9% 100 ML IVPB SCH ×3 (00:20→12:16)
[2019-08-28] MEDS ORDERED: Vancomycin 1.5 GRAM/300 ML BAG 1.5 GM in Premix Bag 1 BAG IVPB SCH (05:00)
[2019-08-28 05:42] LABS: #Basophils 0.1 thou/uL (0.0-0.2); #Lymphocytes 1.4 thou/uL (1.20-3.40); #Monocytes 1.2 thou/uL (0.11-0.59); #Neutrophils 7.1 thou/uL (1.40-6.50); %Basophils 0.6 % (0.0-1.0); %Eosinophils 0.1 % (0.0-10.0); %Lymphocytes 14.2 % (21.0-51.0); %Monocytes 12.3 % (0.0-10.0); %Neutrophils 72.8 % (42.0-75.0); Hemoglobin 11.5 g/dL (14.0-18.0); Mean Corpuscular HGB CONC 31.5 g/dL (32.0-36.0); Mean Corpuscular Hemoglobin 28.6 pg (27.0-31.0); Mean Corpuscular Volume 90.6 fL (78.0-98.0); Mean Platelet Volume 11.2 fL (7.4-10.4); Platelet Count 173 thou/uL (130-400); RBC Distribution Width 12.7 % (11.5-14.5); Red Blood Cell (RBC) Count 4.04 mill/uL (4.70-6.10); White Blood Cell (WBC) Count 9.7 thou/uL (4.8-10.8)
[2019-08-28 05:57] LABS: Anion Gap 16 mmol/L (10-20); BUN (Urea Nitrogen) 13 mg/dL (8.4-25.7); Calc. Creatinine Clearance 123 mL/min (70-130); Calcium 8.7 mg/dL (7.8-10.44); Carbon Dioxide 24 mmol/L (23-31); Chloride 102 mmol/L (98-107); Estimated GFR-MDRD 86; Glucose 138 mg/dL (80-115); Potassium 3.5 mmol/L (3.5-5.1); Sodium 138 mmol/L (136-145)
[2019-08-28] MEDS: Sacubitril 49 MG/Valsartan 51 MG TABLET PO SCH ×2 (08:25→21:14)
[2019-08-28] MEDS: Clopidogrel Bisulfate 75 MG TAB PO SCH (08:26)
[2019-08-28] MEDS: Torsemide 10 MG TAB PO SCH (08:26)
[2019-08-28] MEDS: glipiZIDE 5 MG TAB PO SCH ×2 (08:27→17:06)
[2019-08-28] MEDS: Aspirin 81 mg Enteric Coated Tablet PO SCH (08:27)
[2019-08-28] MEDS: Apixaban 5 MG TAB PO SCH ×2 (08:27→21:14)
[2019-08-28] MEDS: Carvedilol 25 MG TAB PO SCH ×2 (08:27→17:06)
[2019-08-28] MEDS: Icosapent Ethyl 1 GM CAPSULE PO SCH ×2 (08:28→17:06)
[2019-08-28] MEDS ORDERED: Enoxaparin Sodium 40 MG/0.4 ML SYRINGE SC SCH (09:00)
--- NOTE | 2019-08-28 13:07 | MRI ---
MRI LEFT FORELEG WITHOUT CONTRAST: Date: 08/28/2019 PROVIDED CLINICAL HISTORY: Cellulitis. FINDINGS: Evaluation is limited given lack of IV contrast material. There is diffuse fluid signal intensity within the subcutaneous adipose layer circumferentially about the mid to lower foreleg, compatible with the provided clinical history of cellulitis. There is sign al alteration on fluid sensitive sequences in a patchy manner involving the distal anterior and poste rior foreleg compartment musculature. There is fluid signal intensity at the deep fascia of the anter ior foreleg compartment musculature. Evaluation for soft tissue or intramuscular abscess is limited b y the absence of IV contrast material. Regional marrow signal appears normal. The amount of fluid wit hin the tibiotalar joint appears physiologic. IMPRESSION: 1. No evidence for osteomyelitis. 2. Findings compatible with cellulitis involving the mid to distal foreleg. 3. Signal alteration involving the distal foreleg musculature and portions of the adjacent fascia, c ompatible with myositis and possibly also fasciitis. No evidence for soft tissue abscess with limitat ions due to lack of IV contrast. POS: [facility]
[2019-08-28] MEDS: Morphine 4 MG/ML VIAL SLOW IVP PRN ×2 (13:30→18:39)
[2019-08-28] MEDS: cefTRIAXone\\ROCEPHIN 1 GM in Sodium Chloride 0.9% 100 ML IVPB SCH (17:06)
--- NOTE | 2019-08-28 22:41 | CON ---
DATE OF CONSULTATION: 08/28/2019 REASON FOR CONSULTATION: Inflammatory changes of left foot and leg with peripheral vascular disease. HISTORY OF PRESENT ILLNESS: A 69-year-old patient with a history of coronary artery disease, peripheral vascular disease with prior cardiac bypass graft surgery as well as revascularization of lower extremities done in [place], which appears to have been femoral-popliteal bypasses for right and left side. The last admission was in January to this hospital and the discharge diagnosis included atrial flutter, status post ablation, coronary disease and type 2 diabetes. At this time, he comes in because of swelling of the left lower extremity and pain. Apparently, he had a blister at the base of his left great toe and interdigital space. He has had this for the past month, approximately, had another blister pop up as well. No headaches visual symptoms, sore throat, odynophagia, dysphagia. No cough, sputum production or chest pain. No abdominal pain, no diarrhea. No genitourinary symptoms. No joint symptoms. PAST MEDICAL HISTORY: 1. Coronary artery disease, bypass graft surgery. 2. Peripheral vascular disease and prior revascularization of lower extremities by his description and by the way that the surgical scars look like, it appears to be a femoral-popliteal bypass procedure. 3. Type 2 diabetes. 4. Chronic back pain. 5. Symptoms in lower extremities which are chronic, which could be consistent with either vascular claudication or spine claudication. 6. Hypertension. Coronary bypass graft surgery x3. 1. Femoral-popliteal bypass. 2. SARAH with cardioversion for Aflutter. FAMILY HISTORY: Diabetes, hypertension. 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 Lives by himself. Quit smoking about 2-3 years ago. Used to drink heavily, but quit reportedly. No drug use. ALLERGIES: NONE. CURRENT MEDICATIONS: 1. Tylenol. 2. [place]. 3. Eliquis. 4. Ecotrin. 5. Coreg. 6. Plavix. 7. Dextrose. 8. Glucotrol. 9. Insulin. 10. Vascepa. 11. Morphine. 12. Zosyn. 13. Vancomycin. PHYSICAL EXAMINATION: VITAL SIGNS: T-max 98.5, blood pressure 150/70, pulse 67, respirations 18-20, O2 saturation 93-95. SKIN: Shows the area of kind of violaceous erythema in the left foot dorsal aspect, some intertriginous ulceration and maceration in between the first and 2nd toes and there are 2 dried up blistered areas at the first MPJ skin site in the interdigital space base as well. Quite a bit of onychodystrophy, onychomycosis likely or could be onychodystrophy related to vascular disease. A little bit of somewhat of a faint erythema of the anterior aspect of the left leg distal aspect. The patient has a peripheral IV access. He is voiding spontaneously in the urinal and toilet. No lymphadenopathy. HEENT: Ocular movements conjugate. Oral cavity normal except for numerous missing teeth. NECK: Supple, no jugular vein distention or carotid bruits. LUNGS: With symmetric clear breath sounds. S1-S2 regular rate with a soft aortic murmur. No S3. ABDOMEN: Soft, not distended or tender. No ascites. No bladder distention, no joint inflammatory activity. I could not feel dorsalis pedis or posterior tibialis pulses at all. He moves extremities equally. His cognitive function appears to be intact. LABORATORY DATA: White cell count 9.7, hemoglobin 11.5, platelets 173 and a chemistry with a creatinine of 0.88, bilirubin 1.6, calcium 8.7, albumin 3.8. IMAGING: Lower extremity MRI, which showed no evidence of osteomyelitis, cellulitis. No contrast was given. We have 1 ultrasound done yesterday, which was an arterial duplex left lower extremity and showed abnormal monophasic waveforms in all interrogated arteries and consistent with high-grade arterial occlusive disease. No chest x-ray was done. ASSESSMENT AND PLAN: Coronary artery disease, peripheral vascular disease with prior bilateral revascularizations, now with evidence of symptoms of claudication associated with those chronic skin changes. DISCUSSION: The differential diagnosis includes skin changes and pain associated with severe peripheral vascular disease versus a superimposed infection. I tend to believe that this is more likely to represent chronic arterial insufficiency. I would advise consultation with vascular specialist to see, if he is amenable to any further attempts at revascularization. May continue Rocephin for now, antimicrobial therapy adamson, but I doubt if this is going to be very helpful. He will be at risk for amputation unless there is a hope for an additional attempt at revascularization. Job ID: [id number]
--- NOTE | 2019-08-29 06:44 | PDOC.HOSPP ---
- Subjective Encounter Date: 08/27/19 Encounter Time: 10:30 Subjective: pt up in bed no complains - Objective Vital Signs & Weight: Vital Signs (12 hours) Temp Pulse Resp BP Pulse Ox 08/28/19 19:48 98.3 F 61 20 139/75 94 L Weight Weight 234 lb 11.2 oz I&O: 08/27/19 08/28/19 08/29/19 06:59 06:59 06:59 Intake Total 1300 1000 Balance 1300 1000 Result Diagrams: 08/28/19 05:25 08/28/19 05:26 Additional Labs: Accuchecks 08/29/19 08/28/19 08/28/19 04:38 19:49 16:26 POC Glucose 168 H 146 H 157 H 08/28/19 08/28/19 08/27/19 12:03 05:08 17:11 POC Glucose 177 H 146 H 158 H Hospitalist ROS - Review of Systems Respiratory: denies: cough, dry, shortness of breath, hemoptysis, SOB with excertion, pleuritic pain, sputum, wheezing, other Cardiovascular: denies: chest pain, palpitations, orthopnea, paroxysmal noc. dyspnea, edema, light headedness, other Gastrointestinal: denies: nausea, vomiting, abdominal pain, diarrhea, constipation, melena, hematochezia, other - Medication Medications: Active Medications Generic Name Dose Route Start Last Admin Trade Name Freq PRN Reason Stop Dose Admin Acetaminophen 650 mg 08/27/19 15:42 08/28/19 05:13 Tylenol PO 650 mg Q4H PRN Administration Headache/Fever/Mild Pain (1-3) Apixaban 5 mg 08/27/19 21:00 08/28/19 21:14 Eliquis PO 5 mg BID IFRAH Administration Aspirin 81 mg 08/28/19 09:00 08/28/19 08:27 Ecotrin PO 81 mg DAILY IFRAH Administration Carvedilol 12.5 mg 08/27/19 17:00 08/28/19 17:06 Coreg PO 12.5 mg BID-WM IFRAH Administration Clopidogrel Bisulfate 75 mg 08/28/19 09:00 08/28/19 08:26 Plavix PO 75 mg DAILY IFRAH Administration Glipizide 5 mg 08/27/19 16:30 08/28/19 17:06 Glucotrol PO 5 mg BID-AC IFRAH Administration Ceftriaxone Sodium 1 gm/ 100 mls @ 200 mls/hr 08/28/19 17:00 08/28/19 17:06 Sodium Chloride IVPB 100 mls 1700 IFRAH Administration Miscellaneous Medication 2 gm 08/27/19 17:00 08/28/19 17:06 Vascepa PO 2 gm BID-WM IFRAH Administration Morphine Sulfate 4 mg 08/28/19 11:56 08/28/19 18:39 Morphine SLOW IVP 4 mg Q4H PRN Administration Severe Pain (7-10) Sacubitril/Valsartan 2 tab 08/27/19 21:00 08/28/19 21:14 Entresto 49 Mg-51 Mg Tablet PO 2 tab BID IFRAH Administration Torsemide 20 mg 08/28/19 09:00 08/28/19 08:26 Demadex PO 20 mg DAILY IFRAH Administration - Exam Heart: negative: RRR, no murmur, no gallops, no rubs, normal peripheral pulses, irregular, diminshed peripheral pulses, murmur present, II/IV, III/IV Respiratory: negative: CTAB, no wheezes, no rales, no ronchi, normal chest expansion, no tachypnea, normal percussion, rales, rhonchi, tachypneic, wheezes Gastrointestinal: negative: soft, non-tender, non-distended, normal bowel sounds , no palpable masses, no hepatomegaly, no splenomegaly, no bruit, no guarding, no rigidity, tender to palpation, distended, diminished bowl sounds, voluntary guarding Extremities: 1+ LE edema Extremities - other findings: erythema improved to left lower ext, Hosp A/P (1) Cellulitis Code(s): L03.90 - CELLULITIS, UNSPECIFIED Status: Acute (2) CAD (coronary artery disease) Code(s): I25.10 - ATHSCL HEART DISEASE OF [place] CORONARY ARTERY W/O ANG PCTRS Status: Chronic Qualifiers: Coronary Disease-Associated Artery/Lesion type: bypass graft [place] vs. transplanted heart: [place] heart Associated angina: without angina Qualified Code(s): I25.810 - Atherosclerosis of coronary artery bypass graft(s) without angina pectoris (3) Diabetes mellitus Code(s): E11.9 - TYPE 2 DIABETES MELLITUS WITHOUT COMPLICATIONS Status: Chronic Qualifiers: Diabetes mellitus type: type 2 Diabetes mellitus [employer] insulin use: without [employer] use (4) HTN (hypertension) Code(s): I10 - ESSENTIAL (PRIMARY) HYPERTENSION Status: Chronic Qualifiers: (5) PVD (peripheral vascular disease) Code(s): I73.9 - PERIPHERAL VASCULAR DISEASE, UNSPECIFIED Status: Chronic - Plan pt's erythema appear improved. narrowing noted on arterial Doppler. MRI pending. will add medication of nerve pain.
[2019-08-29] MEDS: Carvedilol 25 MG TAB PO SCH ×2 (08:25→17:08)
[2019-08-29] MEDS: Sacubitril 49 MG/Valsartan 51 MG TABLET PO SCH ×2 (08:25→21:18)
[2019-08-29] MEDS: Aspirin 81 mg Enteric Coated Tablet PO SCH (08:25)
[2019-08-29] MEDS: glipiZIDE 5 MG TAB PO SCH ×2 (08:25→17:06)
[2019-08-29] MEDS: Icosapent Ethyl 1 GM CAPSULE PO SCH ×2 (08:26→17:06)
[2019-08-29] MEDS: Gabapentin 100 MG CAP PO SCH ×2 (08:26→21:18)
[2019-08-29] MEDS: Apixaban 5 MG TAB PO SCH (08:26)
[2019-08-29] MEDS: Clopidogrel Bisulfate 75 MG TAB PO SCH (08:26)
[2019-08-29] MEDS: Torsemide 10 MG TAB PO SCH (08:26)
[2019-08-29] MEDS: Morphine 4 MG/ML VIAL SLOW IVP PRN ×2 (08:31→14:14)
[2019-08-29] MEDS ORDERED: Iopamidol-370 76% 500 ML 1 ML ONE (09:19)
--- NOTE | 2019-08-29 12:37 | CT ---
EXAM: CTA Angio Aort Bilat Rnoff W PROVIDED CLINICAL HISTORY: Left foot ulcerations with redness and swelling to left leg. COMPARISON: None FINDINGS: Small bilateral pleural effusions are seen. Passive atelectasis is also present at each lung base. Coronary artery calcifications are visualized. Atherosclerotic plaque and vascular calcifications are seen in the abdominal aorta and involving the iliac arteries. Dense vascular calcifications are seen at the origin of celiac artery, and there is suggestion of severe narrowing at the origin. Moderate narrowing is present involving the origin prox imal SMA. The CARMEN is occluded proximally with reconstitution. There are areas of atherosclerotic plaque seen within the superior mesenteric artery with short segment of severe narrowing involving th e mid superior mesenteric artery. Single renal arteries are seen bilaterally with dense atherosclerotic calcifications limiting evaluat ion of the origins. However, there is suggestion of at least moderate and possibly severe narrowing of each renal artery origin and proximal renal artery. A left common iliac artery stent is noted in place. There is dense atherosclerotic vascular calcifica tions and irregular atherosclerotic plaque involving each common iliac artery with mild narrowing involving the right common iliac artery. The stent on the left is patent. Bilateral external iliac ar juliet stents are present with mild in-stent stenosis present. Prominent atherosclerotic calcifications involve the internal iliac arteries bilaterally. Severe focal area of narrowing is see n involving the left external iliac artery just superior to the level of the stent within the more distal left external iliac artery. The liver, spleen, pancreas ,right adrenal gland, and bilateral kidneys demonstrate a normal CT appea ivone. A 1.5 cm hypodense nodule is seen involving the left adrenal gland. This cannot be further characterized on this exam. There is mild gallbladder wall thickening with mild gallbladder wall edema present. Minimal adjacent inflammatory changes are seen. Cholecystitis in the correct clinical scenario cannot be excluded. There is suggestion of increased density in the region of the neck of the gallbladder. This could be related to prominent fold in the gallbladder, but sludge or gallbladder calculus is a possibility as well. Urinary bladder is mostly decompressed. Colonic diverticulosis is present. There is mild stranding seen within the pelvis with small amount of free fluid seen in the pelvis. Degenerative changes are seen in the spine greatest at the lumbosacral junction. Bilateral lower extremity runoff: Right lower extremity: There is atherosclerotic calcifications and plaque involving the right common femoral artery with mil [id number] narrowing in the right common femoral artery. Surgical clips are seen in the right inguinal region. A femoral to popliteal artery bypass graft is present and patent. The [place] right l ower extremity superficial femoral artery is occluded. There is severe atherosclerotic irregularity with a critical stenosis versus short segment occlusion involving the proximal right profunda femoral artery. The right lower extremity popliteal artery is generally small in caliber. There is occlusion of the tibioperoneal trunk and left posterior tibial artery. Severe multifocal narrowing is seen involving the proximal right anterior tibial artery. However, there is reconstitution of the anterior tibial artery as well as the peroneal artery which otherwise demonstrate runoff to the foot. Dorsalis pedis artery is not well delineated. Left lower extremity: Moderate to severe focal stenosis involving the left common femoral artery with irregular atheroscler otic plaque and calcifications present. A left femoral to distal popliteal artery bypass graft is noted and patent. The [place] left superficial femoral artery is occluded. Prominent atherosclerotic i rregularity and focal areas of narrowing are seen within the branches of the left profunda femoral artery with area of critical stenosis versus short segment occlusion proximally. The most distal popl iteal artery demonstrates dense vascular calcifications with suggestion of critical stenosis versus short segment occlusion. Left posterior tibial artery is occluded. There is suggestion of severe narr owing involving the left anterior tibial artery, but there are dense calcifications which limits adequate evaluation. There is otherwise two-vessel runoff to the left lower extremity via the peronea l and anterior tibial arteries. Dorsalis pedis artery is visualized. Surgical clips are seen medial aspect of the left lower extremity. Lucency and sclerosis is seen in the superior aspect of the left femoral head compatible with osteone crosis. IMPRESSION: 1. Diffuse atherosclerotic vascular disease as described above including severe atherosclerotic irreg ularity and narrowing involving the superior and inferior mesenteric arteries with occlusion of the inferior mesenteric artery proximally. Areas of atherosclerotic irregularity and narrowing are also s een involving the more distal SMA. 2. Atherosclerotic irregularity and calcification in the abdominal aorta and iliac arteries with edgar c artery stents in place as described above. A severe focal stenosis is seen involving the proximal left common iliac artery with a severe focal narrowing involving the left common femoral artery. 3. Femoral popliteal artery bypasses bilaterally which are patent with mild degrees of intimal thicke lucas. 4. Diffuse atherosclerotic irregularity and moderate to severe areas of narrowing involving each prof unda femoral artery. 5. Critical stenosis versus short segment occlusion of the most distal left popliteal artery. 6. Occlusion of right tibioperoneal trunk and bilateral posterior tibial arteries. In addition there is narrowing involving each anterior tibial artery proximally with areas of short segment critical stenosis or occlusion proximally with reconstitution of the anterior tibial arteries bilaterally as w ell as reconstitution of each peroneal artery which extend to the ankle and foot. Right dorsalis pedis artery is not well visualized. 7. Small bilateral pleural effusions. 8. Mild gallbladder wall edema/thickening with adjacent minimal inflammatory stranding. Findings coul d be related to cholecystitis in the correct clinical scenario. Gallbladder ultrasound may be helpful for further evaluation. 9. Osteonecrosis left femoral head. 10. Left adrenal nodule. Follow-up noncontrast CT abdomen is recommended for further evaluation. 11. Small amount of ascites in the pelvis. 12. Above findings concerning the gallbladder were discussed with Dr. Erickson Mari on 08/29/2019 at 13 05 hours. . Transcribed Date/Time: 08/29/2019 1:37 PM
--- NOTE | 2019-08-29 13:32 | CON ---
DATE OF CONSULTATION: 08/29/2019 HISTORY OF PRESENT ILLNESS: Mr. Bae is a 69-year-old gentleman, who has longstanding history of vascular disease. He underwent coronary artery bypass grafting x3 in December of 2006 with a left internal mammary artery to LAD, saphenous vein graft to diagonal and PDA. Postoperatively, he did not follow up with us. He went to [place] and had peripheral vascular problems in [place]. He has undergone a right femoral popliteal bypass with prosthetic bypass material. He says that he has undergone a left leg bypass in addition, but I cannot see appropriate scars on his left leg. The patient presented through the emergency department with history of about a month's worth of progressive left foot ulcerations. He has had blisters following ulcerations, which have led to his admission. He had an ultrasound performed, which showed monophasic tibial signals. He had an MRI of his foot performed, which showed no my osteomyelitis. He has been started on antibiotics and I was asked to see him for peripheral vascular evaluation. PAST MEDICAL HISTORY: 1. Coronary artery disease, status post coronary artery bypass grafting in 2006. 2. Peripheral vascular disease, status post at least a right femoral to above-knee popliteal artery bypass in [place]. 3. Hypertension. 4. Dyslipidemia. 5. Diabetes mellitus. PAST SURGICAL HISTORY: As above. HOME MEDICATIONS: 1. Vascepa 2 g b.i.d. 2. Trulicity 1.5 mg. 3. Farxiga 5 mg q.a.m. 4. Plavix 75 mg daily. 5. Coreg 12.5 mg b.i.d. 6. Aspirin 81 mg daily. 7. Eliquis 5 mg b.i.d. 8. Glucotrol 5 mg b.i.d. 9. Demadex 20 mg daily. 10. Entresto one b.i.d. ALLERGIES: NONE. SOCIAL HISTORY: He quit smoking about 3 years ago. PHYSICAL EXAMINATION: GENERAL: This is a well-developed, well-nourished male, resting comfortably in bed. VITAL SIGNS: Temperature 98.2, pulse is 69 and regular, and blood pressure 150/58. LUNGS: Clear bilaterally. CARDIAC: Heart rhythm is regular without murmur. ABDOMEN: Soft and nontender. EXTREMITIES: His right lower extremity has no lesions. The left lower extremity has ulcerations of his toes and blisters on his toes. He has the above scars. Greater saphenous vein has been harvested from his left lower extremity for bypass. VASCULAR: He has palpable carotid, radial, and femoral pulses bilaterally. The dorsalis pedis and posterior tibial arteries are dopplerable on the left, but they are monophasic and blunted. ASSESSMENT AND PLAN: Peripheral vascular disease with ulceration in left lower extremity. The patient is an incredibly difficult and poor historian. He is not really sure what he has had done to his peripheral vascular tree. We will check a CT angiogram to help us make some decisions on what we can do to hopefully save his leg. Job ID: [id number]
[2019-08-29] MEDS: HumaLOG 300 UNITS/3 ML VIAL SC PRN ×2 (14:13→17:10)
--- NOTE | 2019-08-29 16:09 | PDOC.HOSPP ---
- Subjective Encounter Date: 08/29/19 Encounter Time: 16:00 Subjective: pt up in bed no complains - Objective Vital Signs & Weight: Vital Signs (12 hours) Temp Pulse Resp BP Pulse Ox 08/29/19 08:37 95 08/29/19 08:23 98.2 F 69 16 150/58 H 95 Weight Weight 234 lb 11.2 oz I&O: 08/28/19 08/29/19 08/30/19 06:59 06:59 06:59 Intake Total 1300 1000 Balance 1300 1000 Result Diagrams: 08/28/19 05:25 08/28/19 05:26 Additional Labs: Accuchecks 08/29/19 08/29/19 08/28/19 12:10 04:38 19:49 POC Glucose 177 H 168 H 146 H 08/28/19 16:26 POC Glucose 157 H Hospitalist ROS - Review of Systems Cardiovascular: denies: chest pain, palpitations, orthopnea, paroxysmal noc. dyspnea, edema, light headedness, other Gastrointestinal: denies: nausea, vomiting, abdominal pain, diarrhea, constipation, melena, hematochezia, other Genitourinary: denies: dysuria, frequency, incontinence, hematuria, retention, other - Medication Medications: Active Medications Generic Name Dose Route Start Last Admin Trade Name Freq PRN Reason Stop Dose Admin Acetaminophen 650 mg 08/27/19 15:42 08/28/19 05:13 Tylenol PO 650 mg Q4H PRN Administration Headache/Fever/Mild Pain (1-3) Apixaban 5 mg 08/27/19 21:00 08/29/19 08:26 Eliquis PO 5 mg BID IFRAH Administration Aspirin 81 mg 08/28/19 09:00 08/29/19 08:25 Ecotrin PO 81 mg DAILY IFRAH Administration Carvedilol 12.5 mg 08/27/19 17:00 08/29/19 08:25 Coreg PO 12.5 mg BID-WM IFRAH Administration Clopidogrel Bisulfate 75 mg 08/28/19 09:00 08/29/19 08:26 Plavix PO 75 mg DAILY IFRAH Administration Gabapentin 100 mg 08/29/19 09:00 08/29/19 08:26 Neurontin PO 100 mg BID IFRAH Administration Glipizide 5 mg 08/27/19 16:30 08/29/19 08:25 Glucotrol PO 5 mg BID-AC IFRAH Administration Ceftriaxone Sodium 1 gm/ 100 mls @ 200 mls/hr 08/28/19 17:00 08/28/19 17:06 Sodium Chloride IVPB 100 mls 1700 IFRAH Administration Insulin Human Lispro 0 units 08/27/19 15:44 08/29/19 14:13 Humalog SC 2 unit .MILD SLIDING SCALE PRN Administration Mild Correctional Scale Miscellaneous Medication 2 gm 08/27/19 17:00 08/29/19 08:26 Vascepa PO 2 gm BID-WM IFRAH Administration Morphine Sulfate 4 mg 08/28/19 11:56 08/29/19 14:14 Morphine SLOW IVP 4 mg Q4H PRN Administration Severe Pain (7-10) Sacubitril/Valsartan 2 tab 08/27/19 21:00 08/29/19 08:25 Entresto 49 Mg-51 Mg Tablet PO 2 tab BID IFRAH Administration Torsemide 20 mg 08/28/19 09:00 08/29/19 08:26 Demadex PO 20 mg DAILY IFRAH Administration - Exam Neck: negative: supple, symmetric, no JVD, no thyromegaly, no lymphadenopathy, no carotid bruit, JVD Heart: negative: RRR, no murmur, no gallops, no rubs, normal peripheral pulses, irregular, diminshed peripheral pulses, murmur present, II/IV, III/IV Respiratory: negative: CTAB, no wheezes, no rales, no ronchi, normal chest expansion, no tachypnea, normal percussion, rales, rhonchi, tachypneic, wheezes Extremities: 1+ LE edema Extremities - other findings: left lower ext erythema improving Hosp A/P (1) Cellulitis Code(s): L03.90 - CELLULITIS, UNSPECIFIED Status: Acute (2) CAD (coronary artery disease) Code(s): I25.10 - ATHSCL HEART DISEASE OF [place] CORONARY ARTERY W/O ANG PCTRS Status: Chronic Qualifiers: Coronary Disease-Associated Artery/Lesion type: bypass graft [place] vs. transplanted heart: [place] heart Associated angina: without angina Qualified Code(s): I25.810 - Atherosclerosis of coronary artery bypass graft(s) without angina pectoris (3) Diabetes mellitus Code(s): E11.9 - TYPE 2 DIABETES MELLITUS WITHOUT COMPLICATIONS Status: Chronic Qualifiers: Diabetes mellitus type: type 2 Diabetes mellitus group home insulin use: without boiler repairman use (4) HTN (hypertension) Code(s): I10 - ESSENTIAL (PRIMARY) HYPERTENSION Status: Chronic Qualifiers: (5) PVD (peripheral vascular disease) Code(s): I73.9 - PERIPHERAL VASCULAR DISEASE, UNSPECIFIED Status: Chronic - Plan pt's erythema appear improved. narrowing noted on arterial Doppler. MRI pending. will add medication of nerve pain. 08/28 will consult vascular based on the arterial Doppler. Pt is on asa/plavix and eliquis. will continue to monitor. will add gabapentin.
--- NOTE | 2019-08-29 17:04 | PRG ---
DATE OF SERVICE: 08/29/2019 SUBJECTIVE: The patient had an aorta with runoff CTA, and there are diffuse atherosclerotic vascular disease and severe narrowing of superior and inferior mesenteric arteries also focal stenosis in the proximal left common iliac artery and narrowing involving the left common femoral artery. The femoral-popliteal artery bypasses bilaterally appear patent with mild degrees of thickening. There is a critical stenosis in the most distal left popliteal artery, occlusion of the right tibioperoneal trunk and bilateral posterior right tibial arteries, osteonecrosis of left femoral head. He denies any headaches. No shortness of breath. No abdominal pain. OBJECTIVE: VITAL SIGNS: He has been afebrile. LUNGS: Clear. HEART: S1 and S2, regular rate. ABDOMEN: Soft. EXTREMITIES: The left foot with less erythema than before. LABORATORY DATA: White cell count 9.7. ASSESSMENT AND DISCUSSION: Peripheral vascular disease, prior revascularization , now with more proximal occlusions. I think that Dr. Mari is going to try stenting of the more proximal occlusions in the left side and see if we can get some more flow in the left foot. Continue Rocephin. It seems that there has been some improvement in the erythema. Job ID: [id number] [facility]
[2019-08-29] MEDS: cefTRIAXone\\ROCEPHIN 1 GM in Sodium Chloride 0.9% 100 ML IVPB SCH (17:06)
[2019-08-29] MEDS: HYDROcodone/Acetaminophen 7.5/325 mg Tablet PO PRN (21:39)
[2019-08-30 05:51] LABS: #Lymphocytes 1.7 thou/uL (1.20-3.40); #Monocytes 0.8 thou/uL (0.11-0.59); #Neutrophils 5.3 thou/uL (1.40-6.50); %Basophils 0.2 % (0.0-1.0); %Eosinophils 0.1 % (0.0-10.0); %Lymphocytes 21.6 % (21.0-51.0); %Monocytes 9.9 % (0.0-10.0); %Neutrophils 68.3 % (42.0-75.0); Hemoglobin 11.4 g/dL (14.0-18.0); Mean Corpuscular HGB CONC 31.7 g/dL (32.0-36.0); Mean Corpuscular Volume 91.6 fL (78.0-98.0); Mean Platelet Volume 11.2 fL (7.4-10.4); Platelet Count 189 thou/uL (130-400); RBC Distribution Width 12.8 % (11.5-14.5); Red Blood Cell (RBC) Count 3.94 mill/uL (4.70-6.10); White Blood Cell (WBC) Count 7.8 thou/uL (4.8-10.8)
[2019-08-30 06:14] LABS: Anion Gap 12 mmol/L (10-20); BUN (Urea Nitrogen) 10 mg/dL (8.4-25.7); Calc. Creatinine Clearance 124 mL/min (70-130); Calcium 8.5 mg/dL (7.8-10.44); Carbon Dioxide 28 mmol/L (23-31); Chloride 103 mmol/L (98-107); Estimated GFR-MDRD 88; Glucose 158 mg/dL (80-115); Potassium 3.3 mmol/L (3.5-5.1); Sodium 140 mmol/L (136-145)
[2019-08-30] MEDS ORDERED: Iopamidol 370 76% 50 ML VIAL FS ONE (08:52)
[2019-08-30] MEDS ORDERED: Potassium Chloride 10 MEQ in Premix Bag 1 BAG IVPB SCH (09:45)
[2019-08-30] MEDS ORDERED: Midazolam HCl 2 mg/2 ml Vial ONE (10:30)
[2019-08-30] MEDS ORDERED: Fentanyl 100 MCG/2 ML VIAL ONE ×4 (10:30→13:44)
[2019-08-30] MEDS ORDERED: Heparin 10,000 UNITS/1 ML VIAL ONE (11:01)
[2019-08-30] MEDS ORDERED: Protamine Sulfate 50 MG/5 ML VIAL ONE ×2 (11:19→11:55)
[2019-08-30] MEDS ORDERED: hydrALAZINE 20 MG/ML VIAL ONE ×2 (11:28→11:31)
[2019-08-30] MEDS ORDERED: Ondansetron PF 4 MG/2 ML Vial IVP PRN (12:04)
[2019-08-30] MEDS ORDERED: Fentanyl 100 MCG/2 ML VIAL SLOW IVP PRN ×2 (12:04)
[2019-08-30] MEDS ORDERED: hydrALAZINE 20 MG/ML VIAL SLOW IVP PRN ×2 (12:04)
[2019-08-30] MEDS ORDERED: Morphine 4 MG/ML VIAL ONE (14:39)
[2019-08-30] MEDS: Icosapent Ethyl 1 GM CAPSULE PO SCH ×2 (15:58→17:05)
[2019-08-30] MEDS: Sacubitril 49 MG/Valsartan 51 MG TABLET PO SCH ×2 (15:58→21:24)
[2019-08-30] MEDS: glipiZIDE 5 MG TAB PO SCH ×2 (15:58→17:06)
[2019-08-30] MEDS: Gabapentin 100 MG CAP PO SCH ×2 (15:58→21:24)
[2019-08-30] MEDS: Carvedilol 25 MG TAB PO SCH ×2 (15:58→17:06)
[2019-08-30] MEDS: Morphine 4 MG/ML VIAL SLOW IVP PRN (17:03)
[2019-08-30] MEDS: Clopidogrel Bisulfate 75 MG TAB PO SCH (17:04)
[2019-08-30] MEDS: Aspirin 81 mg Enteric Coated Tablet PO SCH (17:04)
[2019-08-30] MEDS: cefTRIAXone\\ROCEPHIN 1 GM in Sodium Chloride 0.9% 100 ML IVPB SCH (17:04)
[2019-08-30] MEDS: Torsemide 10 MG TAB PO SCH (17:12)
--- NOTE | 2019-08-30 17:20 | OP ---
DATE OF PROCEDURE: 08/30/2019 PREOPERATIVE DIAGNOSIS: Peripheral vascular disease with nonhealing wounds on the left foot. POSTOPERATIVE DIAGNOSIS: Peripheral vascular disease with nonhealing wounds on the left foot. PROCEDURES PERFORMED: 1. Bilateral ultrasound-guided femoral artery access. 2. Left external iliac artery angiogram. 3. Left common iliac artery angiogram. 4. Right common iliac artery angiogram. 5. Right external iliac artery angiogram. 6. Left external iliac/common iliac artery percutaneous transluminal angioplasty with a 5 x 80 Nadeau balloon taken to 22 mmHg. 7. Stenting of the left external iliac artery with a 6 x 57 Express LD stent taken to 16 mmHg. TOTAL CONTRAST: 54.5 mL. TOTAL FLUORO TIME: 27.5 minutes. DESCRIPTION OF PROCEDURE: After consent was obtained, the patient was brought to the ammunition assembly laborer, placed in supine position on ammunition assembly laborer table. Appropriate monitoring was placed. Groins were prepped and draped in usual sterile fashion. Using ultrasound guidance, the right groin was anesthetized with 1% lidocaine. Percutaneous access to common femoral artery was obtained. Serial dilatations were performed with stiff dilators to obtain access with a 6-Ethiop[place] Marker sheath. Hand-injected arteriogram was performed with tip of the sheath in the external iliac artery. The external and common iliac arteries on the right had no significant stenosis. Contrast refluxed into the aorta and down the left common iliac artery stent. There was no significant stenosis at the bifurcation. The sheath was advanced over dilator into the right common iliac artery. Angled views were taken of the bifurcation insuring there was no stenosis at the bifurcation and either common iliac artery. Contra catheter was then used to cross the aortic bifurcation. Contra catheter was positioned in the left common iliac artery. Hand-injected arteriogram was performed, which showed a near occlusion of the external iliac artery just distal to the bifurcation. There was slow contrast filling of the iliac, distal to this. Multiple catheters and guidewires were used and attempt to cross the area of occlusion from the right groin. We were unsuccessful. The left groin was then anesthetized under ultrasound guidance. Using ultrasound guidance, the common femoral artery was accessed. Serial dilatation was used to place a 5-Ethiopian sheath. Using the 5-Ethiopian sheath, the hand-injected arteriogram was performed with tip of the sheath in external iliac artery. This illuminating the external iliac artery stent up into the area of occlusion. Using catheter, the true lumen was then accessed from the left groin. An angled Benoit catheter was passed up into the external iliac artery stent. An SMITH view was then used with a hand-injected arteriogram performed from the catheter in the common iliac artery. This was used to roadmap and using this roadmap, we were able to eventually access the true lumen and passed the guidewire down into the profunda system. Hand-injected arteriogram was performed. Tip of the catheter in the common femoral artery confirming intraluminal location. We placed a Magic Torque guidewire in the profunda system. The patient was given 7500 units of heparin. We elected to start with a 5 x 80 Nadeau balloon. We used this balloon down into the external iliac artery. This balloon was inflated to 22 mmHg for 1 minute. The balloon was packed up with proximal tip of the balloon in the common iliac artery stent and the distal tip of the balloon in the external iliac stent. This balloon was inflated for 1 minute to 22 mmHg. The balloon was withdrawn and hand-injected arteriogram was performed from the left groin showing a good result, but residual dissection plane and stenosis in the left external iliac artery. We selected a 6 x 57 Express LD stent. This was passed from the right groin over the bifurcation and positioned just with its proximal tip at the bifurcation. This was inflated to 16 mmHg. Followup angiogram showed an excellent result. The patient was given 50 mg of protamine. Catheters and guidewires were removed. Sheaths were removed and manual pressure held for hemostasis. The patient tolerated the procedure well and was transferred back to the recovery room in stable condition. Job ID: [id number]
--- NOTE | 2019-08-30 18:05 | PDOC.HOSPP ---
- Subjective Encounter Date: 08/30/19 Encounter Time: 18:06 Subjective: pt up eating no complains - Objective Vital Signs & Weight: Vital Signs (12 hours) Temp Pulse Resp BP Pulse Ox 08/30/19 07:46 98.0 F 61 18 151/77 H 94 L Weight Weight 234 lb 11.2 oz I&O: 08/29/19 08/30/19 08/31/19 06:59 06:59 06:59 Intake Total 1000 Balance 1000 Result Diagrams: 08/30/19 05:36 08/30/19 05:36 Additional Labs: Accuchecks 08/30/19 08/30/19 08/30/19 16:48 12:19 04:01 POC Glucose 131 H 144 H 169 H Hospitalist ROS - Review of Systems Cardiovascular: denies: chest pain, palpitations, orthopnea, paroxysmal noc. dyspnea, edema, light headedness, other Gastrointestinal: denies: nausea, vomiting, abdominal pain, diarrhea, constipation, melena, hematochezia, other Genitourinary: denies: dysuria, frequency, incontinence, hematuria, retention, other - Medication Medications: Active Medications Generic Name Dose Route Start Last Admin Trade Name Freq PRN Reason Stop Dose Admin Acetaminophen 650 mg 08/27/19 15:42 08/28/19 05:13 Tylenol PO 650 mg Q4H PRN Administration Headache/Fever/Mild Pain (1-3) Hydrocodone Bitart/Acetaminophen 2 tab 08/28/19 11:56 08/29/19 21:39 [place] 7.5/325 PO 2 tab Q6H PRN Administration Moderate Pain (4-6) Apixaban 5 mg 08/27/19 21:00 08/29/19 08:26 Eliquis PO 5 mg BID IFRAH Administration Aspirin 81 mg 08/28/19 09:00 08/30/19 17:04 Ecotrin PO Not Given DAILY IFRAH Carvedilol 12.5 mg 08/27/19 17:00 08/30/19 17:06 Coreg PO 12.5 mg BID-WM IFRAH Administration Clopidogrel Bisulfate 75 mg 08/28/19 09:00 08/30/19 17:04 Plavix PO Not Given DAILY IFRAH Gabapentin 100 mg 08/29/19 09:00 08/30/19 15:58 Neurontin PO Not Given BID IFRAH Glipizide 5 mg 08/27/19 16:30 08/30/19 17:06 Glucotrol PO 5 mg BID-AC IFRAH Administration Ceftriaxone Sodium 1 gm/ 100 mls @ 200 mls/hr 08/28/19 17:00 08/30/19 17:04 Sodium Chloride IVPB 100 mls 1700 IFRAH Administration Insulin Human Lispro 0 units 08/27/19 15:44 08/29/19 17:10 Humalog SC 2 unit .MILD SLIDING SCALE PRN Administration Mild Correctional Scale Miscellaneous Medication 2 gm 08/27/19 17:00 08/30/19 17:05 Vascepa PO 2 gm BID-WM IFRAH Administration Morphine Sulfate 4 mg 08/28/19 11:56 08/30/19 17:03 Morphine SLOW IVP 4 mg Q4H PRN Administration Severe Pain (7-10) Sacubitril/Valsartan 2 tab 08/27/19 21:00 08/30/19 15:58 Entresto 49 Mg-51 Mg Tablet PO Not Given BID IFRAH Torsemide 20 mg 08/28/19 09:00 08/30/19 17:12 Demadex PO 20 mg DAILY IFRAH Administration - Exam Neck: negative: supple, symmetric, no JVD, no thyromegaly, no lymphadenopathy, no carotid bruit, JVD Heart: negative: RRR, no murmur, no gallops, no rubs, normal peripheral pulses, irregular, diminshed peripheral pulses, murmur present, II/IV, III/IV Respiratory: negative: CTAB, no wheezes, no rales, no ronchi, normal chest expansion, no tachypnea, normal percussion, rales, rhonchi, tachypneic, wheezes Gastrointestinal: negative: soft, non-tender, non-distended, normal bowel sounds , no palpable masses, no hepatomegaly, no splenomegaly, no bruit, no guarding, no rigidity, tender to palpation, distended, diminished bowl sounds, voluntary guarding Extremities: 1+ LE edema Extremities - other findings: pedal pulse present bilaterally, erythema to left leg Hosp A/P (1) Cellulitis Code(s): L03.90 - CELLULITIS, UNSPECIFIED Status: Acute (2) CAD (coronary artery disease) Code(s): I25.10 - ATHSCL HEART DISEASE OF [place] CORONARY ARTERY W/O ANG PCTRS Status: Chronic Qualifiers: Coronary Disease-Associated Artery/Lesion type: bypass graft [place] vs. 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 narrowing noted on arterial Doppler. MRI pending. will add medication of nerve pain. 08/28 will consult vascular based on the arterial Doppler. Pt is on asa/plavix and eliquis. will continue to monitor. will add gabapentin. 08/29 s/p left external iliac/common artery percutaneous transluminal angioplasty and stent to left external iliac artery. will check labs in am. He is already on asa/plavix. start eliquis when ok with surgeon.
[2019-08-30] MEDS: Atorvastatin Calcium 40 MG TAB PO SCH (21:24)
[2019-08-30] MEDS: HYDROcodone/Acetaminophen 7.5/325 mg Tablet PO PRN (21:41)
--- NOTE | 2019-08-31 08:39 | PDOC.HOSPP ---
- Subjective Encounter Date: 08/31/19 Encounter Time: 08:30 Subjective: f/u for LLE PVD, cellulitis s/p INTERIOR DESIGN CONSULTANT with stent to L external iliac artery POD # 1. Receiving Rocephin IV, ASA/Plavix with Eliquis on hold due to INTERIOR DESIGN CONSULTANT procedure. States overall feeling better and minimal LLE pain. - Objective Vital Signs & Weight: Vital Signs (12 hours) Temp Pulse Resp BP Pulse Ox 08/31/19 07:46 98.2 F 76 20 154/62 H 95 08/31/19 03:30 97.9 F 71 18 135/63 94 L 08/30/19 23:52 98.7 F 75 18 138/67 92 L Weight Weight 234 lb 11.2 oz I&O: 08/30/19 08/31/19 09/01/19 06:59 06:59 06:59 Intake Total 500 Output Total 475 Balance 25 Result Diagrams: 08/30/19 05:36 08/30/19 05:36 Additional Labs: Accuchecks 08/31/19 08/30/19 08/30/19 03:33 19:07 16:48 POC Glucose 142 H 145 H 131 H 08/30/19 12:19 POC Glucose 144 H Microbiology 08/27/19 09:52 Venous blood - Left Arm Blood Culture - Preliminary NO GROWTH AT 48 HOURS 08/27/19 09:41 Venous blood - Right Arm Blood Culture - Preliminary NO GROWTH AT 48 HOURS Laboratory Tests 08/30/19 05:36 Potassium 3.3 L Hospitalist ROS - Medication Medications: Active Medications Generic Name Dose Route Start Last Admin Trade Name Freq PRN Reason Stop Dose Admin Acetaminophen 650 mg 08/27/19 15:42 08/28/19 05:13 Tylenol PO 650 mg Q4H PRN Administration Headache/Fever/Mild Pain (1-3) Hydrocodone Bitart/Acetaminophen 2 tab 08/28/19 11:56 08/30/19 21:41 [place] 7.5/325 PO 2 tab Q6H PRN Administration Moderate Pain (4-6) Apixaban 5 mg 08/27/19 21:00 08/29/19 08:26 Eliquis PO 5 mg BID IFRAH Administration Aspirin 81 mg 08/28/19 09:00 08/30/19 17:04 Ecotrin PO Not Given DAILY IFRAH Atorvastatin Calcium 40 mg 08/30/19 21:00 08/30/19 21:24 Lipitor PO 40 mg HS IFRAH Administration Carvedilol 12.5 mg 08/27/19 17:00 08/30/19 17:06 Coreg PO 12.5 mg BID-WM IFRAH Administration Clopidogrel Bisulfate 75 mg 08/28/19 09:00 08/30/19 17:04 Plavix PO Not Given DAILY IFRAH Gabapentin 100 mg 08/29/19 09:00 08/30/19 21:24 Neurontin PO 100 mg BID IFRAH Administration Glipizide 5 mg 08/27/19 16:30 08/30/19 17:06 Glucotrol PO 5 mg BID-AC IFRAH Administration Ceftriaxone Sodium 1 gm/ 100 mls @ 200 mls/hr 08/28/19 17:00 08/30/19 17:04 Sodium Chloride IVPB 100 mls 1700 IFRAH Administration Insulin Human Lispro 0 units 08/27/19 15:44 08/29/19 17:10 Humalog SC 2 unit .MILD SLIDING SCALE PRN Administration Mild Correctional Scale Miscellaneous Medication 2 gm 08/27/19 17:00 08/30/19 17:05 Vascepa PO 2 gm BID-WM IFRAH Administration Morphine Sulfate 4 mg 08/28/19 11:56 08/30/19 17:03 Morphine SLOW IVP 4 mg Q4H PRN Administration Severe Pain (7-10) Sacubitril/Valsartan 2 tab 08/27/19 21:00 08/30/19 21:24 Entresto 49 Mg-51 Mg Tablet PO 2 tab BID IFRAH Administration Torsemide 20 mg 08/28/19 09:00 08/30/19 17:12 Demadex PO 20 mg DAILY IFRAH Administration - Exam General Appearance: NAD, awake alert Eye: PERRL, anicteric sclera ENT: normocephalic atraumatic, no oropharyngeal lesions Neck: supple, symmetric, no JVD, no thyromegaly, no lymphadenopathy Heart: RRR, no gallops, no rubs, diminshed peripheral pulses Respiratory: CTAB, no wheezes, no rales, no ronchi, normal chest expansion Gastrointestinal: soft, non-tender, non-distended, normal bowel sounds, no palpable masses Extremities: 1+ LE edema Extremities - other findings: LLE with decreased erythema, localizing mainly on L foot, dried ulcers Skin: normal turgor Neurological: cranial nerve grossly intact, no focal deficits Musculoskeletal: normal tone, no muscle wasting Psychiatric: normal affect, A&O x 3 Hosp A/P (1) Cellulitis of left lower extremity Code(s): L03.116 - CELLULITIS OF LEFT LOWER LIMB Status: Acute Plan: Improved, continue Rocephin IV, serial exams (2) PVD (peripheral vascular disease) Code(s): I73.9 - PERIPHERAL VASCULAR DISEASE, UNSPECIFIED Status: Chronic Plan: s/p L external iliac artery INTERIOR DESIGN CONSULTANT/stent placement POD #1, continue ASA/Plavix, resume Eliquis (3) DM type 2 with diabetic peripheral neuropathy Code(s): E11.42 - TYPE 2 DIABETES MELLITUS WITH DIABETIC POLYNEUROPATHY Status : Chronic Plan: Gabapentin 100mg po BID (4) Chronic systolic CHF (congestive heart failure) Code(s): I50.22 - CHRONIC SYSTOLIC (CONGESTIVE) HEART FAILURE Status: Chronic Plan: Compensated currently, continue Torsemide/Entresto/Coreg - Plan PT/OT, child protective services social worker, out of bed/ambulate Stable overall Continue Rocephin 1gm IV daily Local WCT Resume Eliquis 5mg BID Continue ASA/Plavix AM lab: H/H
[2019-08-31] MEDS: Icosapent Ethyl 1 GM CAPSULE PO SCH ×2 (09:38→17:12)
[2019-08-31] MEDS: glipiZIDE 5 MG TAB PO SCH ×2 (09:38→17:11)
[2019-08-31] MEDS: Carvedilol 25 MG TAB PO SCH ×2 (09:38→17:11)
[2019-08-31] MEDS: Clopidogrel Bisulfate 75 MG TAB PO SCH (09:39)
[2019-08-31] MEDS: Aspirin 81 mg Enteric Coated Tablet PO SCH (09:39)
[2019-08-31] MEDS: Gabapentin 100 MG CAP PO SCH ×2 (09:40→21:34)
[2019-08-31] MEDS: HYDROcodone/Acetaminophen 7.5/325 mg Tablet PO PRN (09:52)
[2019-08-31] MEDS: Torsemide 10 MG TAB PO SCH (11:06)
[2019-08-31] MEDS: Sacubitril 49 MG/Valsartan 51 MG TABLET PO SCH ×2 (11:07→21:34)
[2019-08-31] MEDS: cefTRIAXone\\ROCEPHIN 1 GM in Sodium Chloride 0.9% 100 ML IVPB SCH (16:51)
[2019-08-31] MEDS: Apixaban 5 MG TAB PO SCH (21:34)
[2019-08-31] MEDS: Atorvastatin Calcium 40 MG TAB PO SCH (21:34)
[2019-09-01 05:49] LABS: Hemoglobin 11.6 g/dL (14.0-18.0); Platelet Count 217 thou/uL (130-400)
[2019-09-01] MEDS: Torsemide 10 MG TAB PO SCH (08:08)
[2019-09-01] MEDS: Aspirin 81 mg Enteric Coated Tablet PO SCH (08:09)
[2019-09-01] MEDS: glipiZIDE 5 MG TAB PO SCH ×2 (08:09→16:52)
[2019-09-01] MEDS: Clopidogrel Bisulfate 75 MG TAB PO SCH (08:09)
[2019-09-01] MEDS: Apixaban 5 MG TAB PO SCH ×2 (08:09→20:43)
[2019-09-01] MEDS: Sacubitril 49 MG/Valsartan 51 MG TABLET PO SCH ×2 (08:09→20:43)
[2019-09-01] MEDS: Carvedilol 25 MG TAB PO SCH ×2 (08:09→16:52)
[2019-09-01] MEDS: Gabapentin 100 MG CAP PO SCH ×2 (08:09→20:43)
[2019-09-01] MEDS: Icosapent Ethyl 1 GM CAPSULE PO SCH ×2 (08:11→16:51)
--- NOTE | 2019-09-01 10:16 | PDOC.HOSPP ---
- Subjective Encounter Date: 09/01/19 Encounter Time: 10:15 Subjective: f/u for LLE cellulitis/PVD s/p stent to L external iliac artery on ASA/Plavix/ Eliquis and Rocephin. - Objective Vital Signs & Weight: Vital Signs (12 hours) Temp Pulse Resp BP BP Pulse Ox 09/01/19 07:06 97.6 F 76 18 164/79 H 93 L 09/01/19 00:00 98.2 F 75 18 152/57 H 95 Weight Weight 234 lb 11.2 oz I&O: 08/31/19 09/01/19 09/02/19 06:59 06:59 06:59 Intake Total 500 1690 Output Total 475 200 Balance 25 1490 Result Diagrams: 09/01/19 05:33 08/30/19 05:36 Additional Labs: Accuchecks 09/01/19 08/31/19 08/31/19 05:24 19:10 17:07 POC Glucose 140 H 178 H 144 H 08/31/19 11:45 POC Glucose 185 H Microbiology 08/27/19 09:52 Venous blood - Left Arm Blood Culture - Preliminary NO GROWTH AT 48 HOURS 08/27/19 09:41 Venous blood - Right Arm Blood Culture - Preliminary NO GROWTH AT 48 HOURS Laboratory Tests 08/30/19 05:36 Potassium 3.3 L Hospitalist ROS - Medication Medications: Active Medications Generic Name Dose Route Start Last Admin Trade Name Freq PRN Reason Stop Dose Admin Acetaminophen 650 mg 08/27/19 15:42 08/28/19 05:13 Tylenol PO 650 mg Q4H PRN Administration Headache/Fever/Mild Pain (1-3) Hydrocodone Bitart/Acetaminophen 2 tab 08/28/19 11:56 08/31/19 09:52 [place] 7.5/325 PO 2 tab Q6H PRN Administration Moderate Pain (4-6) Apixaban 5 mg 08/27/19 21:00 09/01/19 08:09 Eliquis PO 5 mg BID IFRAH Administration Aspirin 81 mg 08/28/19 09:00 09/01/19 08:09 Ecotrin PO 81 mg DAILY IFRAH Administration Atorvastatin Calcium 40 mg 08/30/19 21:00 08/31/19 21:34 Lipitor PO 40 mg HS IFRAH Administration Carvedilol 12.5 mg 08/27/19 17:00 09/01/19 08:09 Coreg PO 12.5 mg BID-WM IFRAH Administration Clopidogrel Bisulfate 75 mg 08/28/19 09:00 09/01/19 08:09 Plavix PO 75 mg DAILY IFRAH Administration Gabapentin 100 mg 08/29/19 09:00 09/01/19 08:09 Neurontin PO 100 mg BID IFRAH Administration Glipizide 5 mg 08/27/19 16:30 09/01/19 08:09 Glucotrol PO 5 mg BID-AC IFRAH Administration Ceftriaxone Sodium 1 gm/ 100 mls @ 200 mls/hr 08/28/19 17:00 08/31/19 16:51 Sodium Chloride IVPB 100 mls 1700 IFRAH Administration Insulin Human Lispro 0 units 08/27/19 15:44 08/29/19 17:10 Humalog SC 2 unit .MILD SLIDING SCALE PRN Administration Mild Correctional Scale Miscellaneous Medication 2 gm 08/27/19 17:00 09/01/19 08:11 Vascepa PO 2 gm BID-WM IFRAH Administration Morphine Sulfate 4 mg 08/28/19 11:56 08/30/19 17:03 Morphine SLOW IVP 4 mg Q4H PRN Administration Severe Pain (7-10) Sacubitril/Valsartan 2 tab 08/27/19 21:00 09/01/19 08:09 Entresto 49 Mg-51 Mg Tablet PO 2 tab BID IFRAH Administration Torsemide 20 mg 08/28/19 09:00 09/01/19 08:08 Demadex PO 20 mg DAILY IFRAH Administration - Exam General Appearance: NAD, awake alert Eye: PERRL, anicteric sclera ENT: normocephalic atraumatic, no oropharyngeal lesions Neck: supple, symmetric, no JVD, no thyromegaly Heart: RRR, no gallops, no rubs, diminshed peripheral pulses Heart - other findings: S1, S2 Respiratory: CTAB, no wheezes, no rales, no ronchi, normal chest expansion Gastrointestinal: soft, non-tender, non-distended, normal bowel sounds, no palpable masses Neurological: cranial nerve grossly intact, no new deficit Musculoskeletal: normal tone, generalized weakness Psychiatric: normal affect, A&O x 3 Hosp A/P (1) Cellulitis of left lower extremity Code(s): L03.116 - CELLULITIS OF LEFT LOWER LIMB Status: Acute Plan: Continue Rocephin (2) PVD (peripheral vascular disease) Code(s): I73.9 - PERIPHERAL VASCULAR DISEASE, UNSPECIFIED Status: Chronic Plan: s/p L external 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
--- NOTE | 2019-09-01 16:24 | PRG ---
DATE OF SERVICE: 09/01/2019 SUBJECTIVE: The patient had a procedure by Dr. Mari and it consisted of bilateral femoral artery access, angiogram, and percutaneous angioplasty of left external iliac, common iliac artery, and stenting. No respiratory symptoms. No abdominal pain. A little bit of loose stool. Voiding without difficulty. OBJECTIVE: VITAL SIGNS: Vital signs are essentially normal. O2 saturations dropped a bit to 93 on room air. Systolic blood pressure is a little bit high. LUNGS: Clear. HEART: S1 and S2, regular rate. ABDOMEN: Soft, not distended. EXTREMITIES: Left foot erythema has subsided quite a bit. LABORATORY DATA: White cell count 7.8, hemoglobin 11, and platelets 189. Blood cultures negative. ASSESSMENT AND DISCUSSION: Peripheral vascular disease, prior revascularization, now with more proximal occlusions, status post common iliac stenting, left side. Inflammatory process has improved and we will go ahead and discontinue Rocephin and switch him to oral Keflex. He should be ready for discharge planning and will need continuation of wound care in the outpatient setting. Job ID: [id number]
[2019-09-01] MEDS: Cephalexin 250 MG CAP PO SCH ×2 (16:51→20:43)
[2019-09-01] MEDS: Atorvastatin Calcium 40 MG TAB PO SCH (20:43)
[2019-09-01] MEDS: HYDROcodone/Acetaminophen 7.5/325 mg Tablet PO PRN (20:51)
[2019-09-02] MEDS: Aspirin 81 mg Enteric Coated Tablet PO SCH (10:39)
[2019-09-02] MEDS: Icosapent Ethyl 1 GM CAPSULE PO SCH ×2 (10:39→15:56)
[2019-09-02] MEDS: glipiZIDE 5 MG TAB PO SCH ×2 (10:39→15:55)
[2019-09-02] MEDS: Sacubitril 49 MG/Valsartan 51 MG TABLET PO SCH ×2 (10:39→20:33)
[2019-09-02] MEDS: Gabapentin 100 MG CAP PO SCH ×2 (10:40→20:34)
[2019-09-02] MEDS: Carvedilol 25 MG TAB PO SCH ×2 (10:40→15:55)
[2019-09-02] MEDS: Apixaban 5 MG TAB PO SCH ×2 (10:40→20:33)
[2019-09-02] MEDS: Clopidogrel Bisulfate 75 MG TAB PO SCH (10:40)
[2019-09-02] MEDS: Cephalexin 250 MG CAP PO SCH ×3 (10:41→20:33)
[2019-09-02] MEDS: Torsemide 10 MG TAB PO SCH (10:41)
[2019-09-02] MEDS: HYDROcodone/Acetaminophen 7.5/325 mg Tablet PO PRN ×2 (10:46→20:38)
[2019-09-02] MEDS: HumaLOG 300 UNITS/3 ML VIAL SC PRN (12:36)
--- NOTE | 2019-09-02 16:29 | PDOC.HOSPP ---
- Subjective Encounter Date: 09/02/19 Encounter Time: 16:20 Subjective: f/u for LLE PVD/foot ulceration s/p L external iliac artery DIAGNOSTIC TECHNICIAN/stent placement receiving Rocephin previously now converting to Keflex. - Objective Vital Signs & Weight: Vital Signs (12 hours) Temp Pulse Resp BP Pulse Ox 09/02/19 08:00 98.1 F 65 20 176/99 H 97 Weight Admit Weight 234 lb 11.2 oz Weight 234 lb 11.2 oz I&O: 09/01/19 09/02/19 09/03/19 06:59 06:59 06:59 Intake Total 1690 610 Output Total 200 Balance 1490 610 Result Diagrams: 09/01/19 05:33 08/30/19 05:36 Additional Labs: Accuchecks 09/02/19 09/02/19 09/01/19 11:58 05:03 20:38 POC Glucose 195 H 163 H 156 H 09/01/19 17:02 POC Glucose 143 H Microbiology 08/27/19 09:52 Venous blood - Left Arm Blood Culture - Preliminary NO GROWTH AT 48 HOURS 08/27/19 09:41 Venous blood - Right Arm Blood Culture - Preliminary NO GROWTH AT 48 HOURS Laboratory Tests 08/30/19 05:36 Potassium 3.3 L Hospitalist ROS - Medication Medications: Active Medications Generic Name Dose Route Start Last Admin Trade Name Freq PRN Reason Stop Dose Admin Acetaminophen 650 mg 08/27/19 15:42 08/28/19 05:13 Tylenol PO 650 mg Q4H PRN Administration Headache/Fever/Mild Pain (1-3) Hydrocodone Bitart/Acetaminophen 2 tab 08/28/19 11:56 09/02/19 10:46 [place] 7.5/325 PO 2 tab Q6H PRN Administration Moderate Pain (4-6) Apixaban 5 mg 08/27/19 21:00 09/02/19 10:40 Eliquis PO 5 mg BID IFRAH Administration Aspirin 81 mg 08/28/19 09:00 09/02/19 10:39 Ecotrin PO 81 mg DAILY IFRAH Administration Atorvastatin Calcium 40 mg 08/30/19 21:00 09/01/19 20:43 Lipitor PO 40 mg HS IFRAH Administration Carvedilol 12.5 mg 08/27/19 17:00 09/02/19 15:55 Coreg PO 12.5 mg BID-WM IFRAH Administration Cephalexin 500 mg 09/01/19 15:00 09/02/19 15:50 Keflex PO 500 mg TID IFRAH Administration Clopidogrel Bisulfate 75 mg 08/28/19 09:00 09/02/19 10:40 Plavix PO 75 mg DAILY IFRAH Administration Gabapentin 100 mg 08/29/19 09:00 09/02/19 10:40 Neurontin PO 100 mg BID IFRAH Administration Glipizide 5 mg 08/27/19 16:30 09/02/19 15:55 Glucotrol PO 5 mg BID-AC IFRAH Administration Insulin Human Lispro 0 units 08/27/19 15:44 09/02/19 12:36 Humalog SC 2 unit .MILD SLIDING SCALE PRN Administration Mild Correctional Scale Miscellaneous Medication 2 gm 08/27/19 17:00 09/02/19 15:56 Vascepa PO 2 gm BID-WM IFRAH Administration Morphine Sulfate 4 mg 08/28/19 11:56 08/30/19 17:03 Morphine SLOW IVP 4 mg Q4H PRN Administration Severe Pain (7-10) Sacubitril/Valsartan 2 tab 08/27/19 21:00 09/02/19 10:39 Entresto 49 Mg-51 Mg Tablet PO 2 tab BID IFRAH Administration Torsemide 20 mg 08/28/19 09:00 09/02/19 10:41 Demadex PO 20 mg DAILY IFRAH Administration - Exam General Appearance: NAD, awake alert Eye: PERRL, anicteric sclera ENT: normocephalic atraumatic, no oropharyngeal lesions Neck: supple, symmetric, no JVD, no thyromegaly Heart: RRR, no murmur, no gallops, no rubs, normal peripheral pulses Heart - other findings: S1, S2 Respiratory: CTAB, no wheezes, no rales, no ronchi, normal chest expansion Gastrointestinal: soft, non-tender, non-distended, normal bowel sounds, no palpable masses Extremities: no cyanosis Extremities - other findings: LLE/foot with wound dressing in place, erythema decreased Skin: normal turgor Neurological: cranial nerve grossly intact, no new deficit Musculoskeletal: normal tone, generalized weakness Psychiatric: normal affect, A&O x 3 Hosp A/P (1) Cellulitis of left lower extremity Code(s): L03.116 - CELLULITIS OF LEFT LOWER LIMB Status: Acute Plan: LLE/foot ulceration s/p DIAGNOSTIC TECHNICIAN/stent to LLE, continue ASA/Plavix/Eliquis, Keflex 500mg TID (2) PVD (peripheral vascular disease) Code(s): I73.9 - PERIPHERAL VASCULAR DISEASE, UNSPECIFIED Status: Chronic Plan: Continue ASA/Plavix/Eliquis (3) DM type 2 with diabetic peripheral neuropathy Code(s): E11.42 - TYPE 2 DIABETES MELLITUS WITH DIABETIC POLYNEUROPATHY Status : Chronic (4) Chronic systolic CHF (congestive heart failure) Code(s): I50.22 - CHRONIC SYSTOLIC (CONGESTIVE) HEART FAILURE Status: Chronic - Plan continue antibiotics, PT/OT, high school social 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
[2019-09-02] MEDS: Atorvastatin Calcium 40 MG TAB PO SCH (20:33)
[2019-09-03] MEDS: Torsemide 10 MG TAB PO SCH (08:51)
[2019-09-03] MEDS: Icosapent Ethyl 1 GM CAPSULE PO SCH ×2 (08:51→16:05)
[2019-09-03] MEDS: glipiZIDE 5 MG TAB PO SCH ×2 (08:51→16:04)
[2019-09-03] MEDS: Sacubitril 49 MG/Valsartan 51 MG TABLET PO SCH ×2 (08:51→20:02)
[2019-09-03] MEDS: Cephalexin 250 MG CAP PO SCH ×3 (08:51→20:02)
[2019-09-03] MEDS: Apixaban 5 MG TAB PO SCH ×2 (08:52→20:02)
[2019-09-03] MEDS: Clopidogrel Bisulfate 75 MG TAB PO SCH (08:52)
[2019-09-03] MEDS: Gabapentin 100 MG CAP PO SCH ×2 (08:52→20:02)
[2019-09-03] MEDS: Aspirin 81 mg Enteric Coated Tablet PO SCH (08:52)
[2019-09-03] MEDS: Carvedilol 25 MG TAB PO SCH ×2 (08:52→16:04)
--- NOTE | 2019-09-03 14:49 | PDOC.HOSPP ---
- Subjective Encounter Date: 09/03/19 Encounter Time: 14:35 Subjective: f/u for LLE PVD/foot ulcer s/p BARREL RACER/stent placement of L external iliac artery. Receiving WCT with local care and Keflex. Overall feeling ok. - Objective Vital Signs & Weight: Vital Signs (12 hours) Temp Pulse Resp BP Pulse Ox 09/03/19 08:00 94 L 09/03/19 07:22 98.0 F 68 16 166/74 H 94 L Weight Admit Weight 234 lb 11.2 oz Weight 234 lb 11.2 oz I&O: 09/02/19 09/03/19 09/04/19 06:59 06:59 06:59 Intake Total 610 490 Balance 610 490 Result Diagrams: 09/01/19 05:33 08/30/19 05:36 Additional Labs: Accuchecks 09/03/19 09/03/19 09/02/19 11:58 05:11 20:25 POC Glucose 185 H 151 H 177 H 09/02/19 17:01 POC Glucose 180 H Microbiology 08/27/19 09:52 Venous blood - Left Arm Blood Culture - Preliminary NO GROWTH AT 48 HOURS 08/27/19 09:41 Venous blood - Right Arm Blood Culture - Preliminary NO GROWTH AT 48 HOURS Laboratory Tests 08/30/19 05:36 Potassium 3.3 L Hospitalist ROS - Medication Medications: Active Medications Generic Name Dose Route Start Last Admin Trade Name Freq PRN Reason Stop Dose Admin Acetaminophen 650 mg 08/27/19 15:42 08/28/19 05:13 Tylenol PO 650 mg Q4H PRN Administration Headache/Fever/Mild Pain (1-3) Hydrocodone Bitart/Acetaminophen 2 tab 08/28/19 11:56 09/02/19 20:38 [place] 7.5/325 PO 2 tab Q6H PRN Administration Moderate Pain (4-6) Apixaban 5 mg 08/27/19 21:00 09/03/19 08:52 Eliquis PO 5 mg BID IFRAH Administration Aspirin 81 mg 08/28/19 09:00 09/03/19 08:52 Ecotrin PO 81 mg DAILY IFRAH Administration Atorvastatin Calcium 40 mg 08/30/19 21:00 09/02/19 20:33 Lipitor PO 40 mg HS IFRAH Administration Carvedilol 12.5 mg 08/27/19 17:00 09/03/19 08:52 Coreg PO 12.5 mg BID-WM IFRAH Administration Cephalexin 500 mg 09/01/19 15:00 09/03/19 08:51 Keflex PO 500 mg TID IFRAH Administration Clopidogrel Bisulfate 75 mg 08/28/19 09:00 09/03/19 08:52 Plavix PO 75 mg DAILY IFRAH Administration Gabapentin 100 mg 08/29/19 09:00 09/03/19 08:52 Neurontin PO 100 mg BID IFRAH Administration Glipizide 5 mg 08/27/19 16:30 09/03/19 08:51 Glucotrol PO 5 mg BID-AC IFRAH Administration Insulin Human Lispro 0 units 08/27/19 15:44 09/02/19 12:36 Humalog SC 2 unit .MILD SLIDING SCALE PRN Administration Mild Correctional Scale Miscellaneous Medication 2 gm 08/27/19 17:00 09/03/19 08:51 Vascepa PO 2 gm BID-WM IFRAH Administration Morphine Sulfate 4 mg 08/28/19 11:56 08/30/19 17:03 Morphine SLOW IVP 4 mg Q4H PRN Administration Severe Pain (7-10) Sacubitril/Valsartan 2 tab 08/27/19 21:00 09/03/19 08:51 Entresto 49 Mg-51 Mg Tablet PO 2 tab BID [facility] Administration Torsemide 20 mg 08/28/19 09:00 09/03/19 08:51 Demadex PO 20 mg DAILY IFRAH Administration - Exam General Appearance: NAD, awake alert Eye: PERRL, anicteric sclera ENT: normocephalic atraumatic, no oropharyngeal lesions Neck: supple, symmetric, no JVD, no thyromegaly Heart: RRR, no murmur, no gallops, no rubs, normal peripheral pulses Respiratory: CTAB, no wheezes, no rales, no ronchi, normal chest expansion Gastrointestinal: soft, non-tender, non-distended, normal bowel sounds, no palpable masses Extremities: no cyanosis Extremities - other findings: L foot edema/erythema with dressings in place Skin: normal turgor Neurological: cranial nerve grossly intact, no new deficit Musculoskeletal: normal tone, normal strength, no muscle wasting Psychiatric: normal affect, A&O x 3 Hosp A/P (1) Cellulitis of left lower extremity Code(s): L03.116 - CELLULITIS OF LEFT LOWER LIMB Status: Acute (2) PVD (peripheral vascular disease) Code(s): I73.9 - PERIPHERAL VASCULAR DISEASE, UNSPECIFIED Status: Chronic (3) DM type 2 with diabetic peripheral neuropathy Code(s): E11.42 - TYPE 2 DIABETES MELLITUS WITH DIABETIC POLYNEUROPATHY Status : Chronic (4) Chronic systolic CHF (congestive heart failure) Code(s): I50.22 - CHRONIC SYSTOLIC (CONGESTIVE) HEART FAILURE Status: Chronic - Plan continue antibiotics, sr. social media & mobile manager, out of bed/ambulate Stable overall Keflex 500mg TID Local wound care, consult WCT Resume Eliquis 5mg BID Continue ASA/Plavix OOB/ambulate CM for HH options including wound care Likely home in 24h
[2019-09-03] MEDS: Atorvastatin Calcium 40 MG TAB PO SCH (20:02)
[2019-09-03] MEDS: HYDROcodone/Acetaminophen 7.5/325 mg Tablet PO PRN (20:03)
[2019-09-04] MEDS: glipiZIDE 5 MG TAB PO SCH (08:55)
[2019-09-04] MEDS: Apixaban 5 MG TAB PO SCH (08:56)
[2019-09-04] MEDS: Aspirin 81 mg Enteric Coated Tablet PO SCH (08:56)
[2019-09-04] MEDS: Torsemide 10 MG TAB PO SCH (08:56)
[2019-09-04] MEDS: Cephalexin 250 MG CAP PO SCH ×2 (08:56→15:30)
[2019-09-04] MEDS: Carvedilol 25 MG TAB PO SCH (08:56)
[2019-09-04] MEDS: Sacubitril 49 MG/Valsartan 51 MG TABLET PO SCH (08:56)
[2019-09-04] MEDS: Clopidogrel Bisulfate 75 MG TAB PO SCH (08:56)
[2019-09-04] MEDS: Gabapentin 100 MG CAP PO SCH (08:56)
--- NOTE | 2019-09-04 10:23 | DIS ---
DATE OF ADMISSION: 08/27/2019 DATE OF DISCHARGE: 09/04/2019 DISCHARGE DIAGNOSES: 1. Left lower extremity cellulitis/diabetic ulcer. 2. Peripheral vascular disease, status post percutaneous transluminal angioplasty with stent placement to the left external iliac artery. 3. Diabetes mellitus, type 2 with diabetic peripheral neuropathy, insulin requiring. 4. Chronic systolic congestive heart failure. 5. Chronic anticoagulation with Eliquis. CONSULTATIONS: 1. Dr. Erickson Mari with Vascular Surgery Service. 2. Dr. Jordan Orlando with Infectious Disease Service. PERTINENT LABORATORY AND X-RAY FINDINGS: CBC showed white blood cell count ranging between 7.8 to 9.7, hemoglobin ranged between 11.4 to 11.6. Blood cultures x2 dated 08/27/2019, showed no growth at 5 days. Arterial Doppler study of the left lower extremity dated 08/27/2019, showed atherosclerotic disease throughout all interrogated arteries. Consistent with high-grade arterial occlusive disease. MRI of the left lower extremity dated 08/28/2019, showed no evidence for osteomyelitis. Cellulitis involving the mid to distal foreleg. Aortogram with runoff dated 08/29/2019, showed diffuse atherosclerotic vascular disease involving the superior and inferior mesenteric arteries with occlusion of the inferior mesenteric artery proximally. Femoral-popliteal artery bypasses bilaterally are patent. Critical stenosis versus short-segment occlusion of the most distal left popliteal artery. Occlusion of the right tibioperoneal trunk and bilateral posterior tibial arteries. Please see dictated report for full details. HOSPITAL COURSE: The patient was initially admitted after presenting with increasing left lower extremity swelling and redness with concern for infectious process. The patient's history is significant for diabetes mellitus type 2 with peripheral neuropathy and peripheral vascular disease, presenting with ulceration on the left great toe. The patient underwent general evaluation including arterial Doppler studies showing evidence of severe atherosclerotic vascular disease. The patient was placed on IV Zosyn and vancomycin and evaluated by the Vascular Surgery Service. The patient underwent aortogram with runoff with eventual percutaneous transluminal angioplasty with stent placement to the left external iliac artery on 08/30/2019. The patient continued on antibiotic therapy and received local wound care throughout the hospital course for the left foot wound. The patient was slow to clinically improve, however, eventually transitioned to oral Keflex at the direction of the Infectious Disease Service. The patient overall remained clinically stable during the hospital course. Due to the patient's left lower extremity wound and concern for outpatient wound care followup, the patient was deemed appropriate candidate for home health services including wound care, at which point, the patient will receive after discharge. I have examined the patient at the time of discharge and discussed followup instructions. The patient verbalized understanding and in agreement and ready for discharge on 09/04/2019. DISCHARGE MEDICATIONS: 1. Keflex 500 mg p.o. t.i.d. x20 days. 2. Farxiga 5 mg p.o. daily. 3. Trulicity 1.5 mg subcutaneously. 4. Vascepa 2 g p.o. b.i.d. 5. Entresto 97/103 mg one tablet p.o. b.i.d. 6. Eliquis 5 mg p.o. b.i.d. 7. Enteric-coated aspirin 81 mg p.o. daily. 8. Lipitor 40 mg p.o. at bedtime. 9. Coreg 12.5 mg p.o. b.i.d. 10. Plavix 75 mg p.o. daily. 11. Glucotrol 5 mg p.o. b.i.d. 12. Nitroglycerin 0.4 mg sublingually q.5 minutes p.r.n. chest pain. 13. Demadex 20 mg p.o. daily. 14. Tramadol 50 mg p.o. b.i.d. p.r.n. pain. FOLLOWUP: The patient may follow up with Dr. Ian Martinez within 7 days of discharge. CONDITION ON DISCHARGE: Fair. ACTIVITY: Ad-chirag. DIET: Heart healthy and ADA. SPECIAL INSTRUCTIONS: Continue with wound care with [facility]. CODE STATUS: Full. DISPOSITION: Home with [facility] on 09/04/2019. TIME SPENT: Total time preparing and coordinating discharge is 35 minutes. Job ID: [id number]
[2019-09-04 11:21] VITALS: BP 128/78; TEMP 97.6
[2019-09-04] MEDS: Icosapent Ethyl 1 GM CAPSULE PO SCH (11:54)
[2019-09-04] MEDS ORDERED: Loperamide HCl 2 MG CAP PO SCH (12:30)
== END 2019-09-04 16:50 | disposition home health service (06) | DRG 253 ==
LOC: ERS 11:26 → T4-A 12:12
PROVIDERS: ADMIT Internal Medicine; ATTEND Internal Medicine
PROC: 047J3DZ Dilation of Left External Iliac Artery with Intraluminal Device, Percutaneous Approach (ICD-10-PCS; principal; 2019-08-27)
PROC: 047D3DZ Dilation of Left Common Iliac Artery with Intraluminal Device, Percutaneous Approach (ICD-10-PCS; 2019-08-27)
PROC: B41G1ZZ Fluoroscopy of Left Lower Extremity Arteries using Low Osmolar Contrast (ICD-10-PCS; 2019-08-27)
PROC: B41F1ZZ Fluoroscopy of Right Lower Extremity Arteries using Low Osmolar Contrast (ICD-10-PCS; 2019-08-27)
DX: E11.51 Type 2 diabetes mellitus with diabetic peripheral angiopathy without gangrene (principal); I50.22 Chronic systolic (congestive) heart failure; I25.810 Atherosclerosis of coronary artery bypass graft(s) without angina pectoris; L03.116 Cellulitis of left lower limb; E11.42 Type 2 diabetes mellitus with diabetic polyneuropathy; E11.621 Type 2 diabetes mellitus with foot ulcer; L97.529 Non-pressure chronic ulcer of other part of left foot with unspecified severity; I11.0 Hypertensive heart disease with heart failure; I48.91 Unspecified atrial fibrillation; G89.29 Other chronic pain; M54.9 Dorsalgia, unspecified; I70.212 Atherosclerosis of native arteries of extremities with intermittent claudication, left leg; Z79.01 Long term (current) use of anticoagulants; Z95.1 Presence of aortocoronary bypass graft; Z95.828 Presence of other vascular implants and grafts; Z79.82 Long term (current) use of aspirin; Z79.02 Long term (current) use of antithrombotics/antiplatelets; Z79.84 Long term (current) use of oral hypoglycemic drugs; Z87.891 Personal history of nicotine dependence
CPT/HCPCS: 36415; 36416; 37221; 75635; 76942; 80048; 85014; 85018; 85025; 85049; 85347; 93923; 96374; 99152; 99153; C1725; C1769; C1876; J0360; J0696; J1644; J2250; J2270; J2543; J2720; J3010; J3370; J3480; J3490; Q9967

== ENCOUNTER 2019-10-04 15:07 | Inpatient (IN) | payer MEDICARE ==
[2019-10-04] MEDS ORDERED: Cefepime 2 GM VIAL ONE (15:44)
[2019-10-04 15:46] LABS: #Basophils 0.1 thou/uL (0.0-0.2); #Lymphocytes 1.8 thou/uL (1.20-3.40); #Monocytes 0.8 thou/uL (0.11-0.59); #Neutrophils 8.2 thou/uL (1.40-6.50); %Basophils 0.5 % (0.0-1.0); %Eosinophils 0.2 % (0.0-10.0); %Lymphocytes 16.3 % (21.0-51.0); %Monocytes 7.5 % (0.0-10.0); %Neutrophils 75.5 % (42.0-75.0); Hemoglobin 12.5 g/dL (14.0-18.0); Mean Corpuscular HGB CONC 31.4 g/dL (32.0-36.0); Mean Corpuscular Hemoglobin 27.6 pg (27.0-31.0); Mean Corpuscular Volume 88.1 fL (78.0-98.0); Mean Platelet Volume 9.7 fL (7.4-10.4); Platelet Count 321 thou/uL (130-400); RBC Distribution Width 13.5 % (11.5-14.5); Red Blood Cell (RBC) Count 4.53 mill/uL (4.70-6.10); White Blood Cell (WBC) Count 10.8 thou/uL (4.8-10.8)
--- NOTE | 2019-10-04 15:58 | RAD ---
Exam: Chest one view HISTORY:Infection. Comparison: 02/13/2019 FINDINGS: Cardiac silhouette:Cardiomegaly. Stable sternotomy wires. Aorta: Unremarkable Pulmonary vessels: Normal Costophrenic angles: Clear LUNGS: No masses or consolidation. Pneumothorax: None Osseous abnormalities: None IMPRESSION: No acute cardiopulmonary process.
--- NOTE | 2019-10-04 15:59 | RAD ---
Exam:3 views left foot HISTORY: Infection. COMPARISON: 08/27/2019 FINDINGS: No fracture, cortical irregularity or periosteal reaction. No erosive or destructive change s. No significant soft tissue swelling. There is atherosclerosis. IMPRESSION: No radiographic evidence of osteomyelitis.
[2019-10-04 16:09] LABS: ALT (SGPT) 11 U/L (8-55); AST (SGOT) 10 U/L (5-34); Alkaline Phosphatase 105 U/L (40-110); Anion Gap 15 mmol/L (10-20); BUN (Urea Nitrogen) 12 mg/dL (8.4-25.7); Bilirubin, Total 0.7 mg/dL (0.2-1.2); CK (CPK) 61 U/L (30-200); Calc. Creatinine Clearance 0 mL/min (70-130); Calcium 9.6 mg/dL (7.8-10.44); Carbon Dioxide 27 mmol/L (23-31); Chloride 100 mmol/L (98-107); Estimated GFR-MDRD 65; Globulin 4.9 g/dL (2.4-3.5); Glucose 154 mg/dL (80-115); Potassium 4.1 mmol/L (3.5-5.1); Protein, Total 8.9 g/dL (5.8-8.1); Sodium 138 mmol/L (136-145)
[2019-10-04] MEDS ORDERED: Fentanyl 100 MCG/2 ML VIAL ONE (16:13)
[2019-10-04] MEDS ORDERED: Acetaminophen 500 MG TAB ONE (16:19)
[2019-10-04] MEDS ORDERED: Clindamycin/D5W 600 mg/50 ml Premix Bag ONE (16:19)
[2019-10-04] MEDS ORDERED: Vancomycin 1 GM/200 ML BAG ONE (17:41)
[2019-10-04 18:37] LABS: Lactic Acid 1.5 mmol/L (0.5-2.2)
[2019-10-04] MEDS ORDERED: Ondansetron ODT 4 MG TAB PO PRN (18:52)
[2019-10-04] MEDS ORDERED: Ondansetron PF 4 MG/2 ML Vial IVP PRN (18:52)
[2019-10-04] MEDS ORDERED: Bisacodyl 5 MG TAB PO PRN (18:52)
[2019-10-04] MEDS ORDERED: Acetaminophen 325 MG TAB PO PRN (18:52)
[2019-10-04] MEDS ORDERED: Senokot S 8.6-50 MG TAB PO PRN (18:52)
[2019-10-04] MEDS ORDERED: Calcium Carbonate 500 MG ChewTAB PO PRN (18:52)
[2019-10-04] MEDS ORDERED: HumaLOG 300 UNITS/3 ML VIAL SC PRN ×2 (19:06)
[2019-10-04] MEDS ORDERED: Dextrose 5% in Water 1,000 ML IV PRN (19:06)
[2019-10-04] MEDS ORDERED: Dextrose 50% Abboject 50 ML SYRINGE SLOW IVP PRN (19:06)
[2019-10-04 19:48] VITALS: BMI 29.9
[2019-10-04 20:32] LABS: INR-International Normal Ratio 1.1; Prothrombin Time 14.2 sec (12.0-14.7)
[2019-10-04 20:33] LABS: PTT 38.6 sec (22.9-36.1)
[2019-10-04] MEDS: Atorvastatin Calcium 40 MG TAB PO SCH (20:47)
[2019-10-04] MEDS: Sacubitril 49 MG/Valsartan 51 MG TABLET PO SCH (20:47)
[2019-10-04] MEDS: Famotidine 20 MG TAB PO SCH (20:47)
[2019-10-04] MEDS: Sodium Chloride 0.9% 1,000 ML IV SCH (20:48)
[2019-10-04] MEDS ORDERED: Famotidine/PF 20 mg/2ml Vial SLOW IVP SCH (21:00)
--- NOTE | 2019-10-04 21:18 | HP ---
PRIMARY CARE PHYSICIAN: Ian Martinez MD CHIEF COMPLAINT: Worsening left foot pain. HISTORY OF PRESENT ILLNESS: The patient is a 69-year-old male with the past medical history significant for severe PVD, CAD, diabetes, hypertension, and heart failure, who presents for the above complaint. The patient reports that approximately 3 months ago, he noticed a small "blood blister" on the lateral aspect of his left fifth toe. Over the next several months, the wound began to worsen, which lead to an admission in the hospital. The patient was discharged from our hospital on 09/03, with a diagnosis of left lower extremity cellulitis, nonhealing diabetic foot ulcer. At that time, he was status post PTCA with a stent to the left external iliac artery by Dr. Mari. He was discharged home on oral Keflex for 20 days and home health wound care 3 times a week. He reports that approximately 4 days ago, during follow up [facility], he developed some blackening to the left fifth toe. Over the next several days, the blackening has worsened and now his fourth digit is purple. He has associated severe pain, swelling and redness. He describes the pain as shooting and constant, exacerbated with weight bearing/ambulation and is relieved by nothing. He denies any recent fever or chills. He denies any abdominal pain, vomiting, or diarrhea. He has no other complaints at this time. In the ER, the patient's vital signs were taken. He was febrile with a temperature of 100.5 oral, heart rate normal, respirations normal, oxygen saturation normal. Pain scale 10/10. X- ray of the left foot showed no radiographic evidence of osteomyelitis. He had a white blood cell count of 10.8. He had a lactic acid of 2.3. The EKG was normal sinus rhythm. He was given vancomycin, cefepime, and clindamycin IV piggyback. He was also given 1 L of normal saline. He was also given fentanyl and Tylenol, which he says has improved his pain. PAST MEDICAL HISTORY: 1. CAD. 2. Severe PVD. 3. Diabetes, noncompliant. 4. Hypertension. 5. CHF. 6. MT in July 2018. PAST SURGICAL HISTORY: 1. CABG x3 12 years ago. 2. Bilateral carotid endarterectomy 5 years ago. 3. Bilateral leg surgeries. SOCIAL HISTORY: The patient lives in [place] alone in the home. He is a former smoker of 50 years. He quit 3 years ago. He drinks alcohol socially. He does not use any illicit drugs. He is disabled. FAMILY HISTORY: Contributory for diabetes and cardiac history. ALLERGIES: NO KNOWN DRUG ALLERGIES. HOME MEDICATIONS: 1. Vascepa 2 g p.o. b.i.d. with meals. 2. Atorvastatin 40 mg p.o. at bedtime. 3. Eliquis 5 mg p.o. b.i.d. 4. Aspirin 81 mg p.o. daily. 5. Plavix 75 mg p.o. daily. 6. Entresto 97 mg-103 mg one tablet p.o. b.i.d. 7. Torsemide 20 mg p.o. daily. 8. Carvedilol 12.5 mg p.o. b.i.d. 9. Glipizide 5 mg p.o. b.i.d. before meals. 10. Farxiga 5 mg p.o. daily. 11. Trulicity 1.5 mg subcutaneously. REVIEW OF SYSTEMS: All other review of systems are negative unless otherwise noted in the HPI. PHYSICAL EXAMINATION: VITAL SIGNS: Temperature 100.5 Fahrenheit oral, blood pressure 139/64, heart rate 83, respirations 20, and oxygen saturation 100%. Pain scale 10/10. CONSTITUTIONAL: The patient is alert and oriented to person, place, and time. He is in no acute distress. He is nontoxic appearing. HEAD: Atraumatic and normocephalic. EYES: PERRLA. Extraocular muscles intact. Sclerae are nonicteric. ENT: Nares are patent bilaterally. Oropharynx is clear. Uvula midline. Moist mucous membranes. NECK: Supple. Trachea is midline. No cervical lymphadenopathy. RESPIRATORY: Respirations are even and nonlabored. No rhonchi, wheezes, or rales. CARDIOVASCULAR: S1 and S2 appreciated. No murmurs, rubs, or gallops. ABDOMEN: Soft and nontender. Active bowel sounds. No guarding or rigidity. No rebound tenderness. EXTREMITIES: Bilateral upper extremities, full range of motion. Strength normal. Palpable radial pulses. Lower extremities, the right lower extremity is normal. Left lower extremity, the left fifth toe is dry and black. The left fourth toe is purple. There is extensive swelling and erythema from the fourth toe all the way at the dorsal aspect of the foot to the ankles and dorsal tibia. There is no pus. There is no discharge. He has full range of motion of his foot, but he is unable to move his fourth and fifth toe on the left side. SKIN: Clean, dry, and intact. NEUROLOGIC: Alert and oriented x3 to person, place, and time. Normal affect. PSYCHIATRIC: No homicidal or suicidal ideation. LABORATORY DATA: EKG, normal sinus rhythm. Chest x-ray negative for any acute process. Left foot x-ray negative for any acute osteomyelitis. Sodium 138, potassium 4.1, chloride 100, carbon dioxide 27, BUN 12, creatinine 1.12, GFR 65 , and glucose 154. Lactic acid 2.3, repeat was 1.5; calcium 9.6; total bilirubin 0.7 ; AST 10; ALT 11; alkaline phosphatase 105; CK 61; and albumin 4.0. WBCs 10.8, hemoglobin 12.5, hematocrit 39.9, and platelets 321. IMPRESSION AND PLAN: 1. Diabetic foot ulcer left foot. We will admit the patient to the medical floor inpatient status. Expected length of stay greater than 2 midnights. The patient has an extensive history of peripheral vascular disease and noncompliance with his diabetes medications, primarily due to cost per the patient. The patient was recently discharged on 09/03 for the same left lower extremity diabetic foot ulcer with cellulitis. At that time, he underwent PTCA with a stent to the left external iliac artery with Dr. Mari and was discharged home on Keflex, which he has been compliant with. He has been [facility] times a week and recently the foot has taken a turn for the worst. In the ER, today, presented with a temperature of 100.5. Lactic acid of 2.3, WBCs of 10.8. The left foot x-ray was negative for any osteomyelitis. We will start the patient on vancomycin and Zosyn for broad-spectrum coverage. We will consult General Surgery and Wound Care Therapy. We will obtain a bacterial wound culture, an ESR and CRP baseline. We will get a PT/INR. We will hold Eliquis, but continue Plavix and aspirin given his extensive peripheral vascular disease history. We will give gentle IV fluids, [place] and Zofran. 2. Cellulitis left foot secondary to Problem #1. 3. 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 4. Diabetes. The patient is noncompliant with his Trulicity and Farxiga secondary to cost. The patient presented with a glucose of 154. We will hold the patient 's glipizide and other oral antidiabetic medications. We will start mild sliding scale and Accu-Cheks before meals and at bedtime. 5. Hypertension. We will restart the patient's Entresto, carvedilol, and torsemide when reconciled by nursing. 6. Peripheral vascular disease, severe. The patient is status post percutaneous transluminal coronary angioplasty with stent to the left external iliac artery in August [address] Mari. We will continue the patient's Plavix and aspirin, but hold his Eliquis at this time. 7. Hyperlipidemia. We will restart the patient's atorvastatin, home medication. 8. Congestive heart failure. We will restart the patient's torsemide, home medication. 9. No pharmaco deep venous thrombosis prophylaxis. No SCDs. Protonix for gastrointestinal prophylaxis. The patient is a full code. 10. Discussed the case with Dr. Tatum. Job ID: [id number] MTDD
[2019-10-04] MEDS: Piperacillin/Tazobactam 4.5 GM in Sodium Chloride 0.9% 100 ML IVPB SCH (23:43)
[2019-10-05] MEDS: Vancomycin 1.5 GRAM/300 ML BAG 1.5 GM in Premix Bag 1 BAG IVPB SCH ×2 (05:21→17:25)
[2019-10-05 06:37] LABS: #Lymphocytes 1.3 thou/uL (1.20-3.40); #Monocytes 0.8 thou/uL (0.11-0.59); %Basophils 0.5 % (0.0-1.0); %Eosinophils 0.2 % (0.0-10.0); %Lymphocytes 15.6 % (21.0-51.0); %Monocytes 9.4 % (0.0-10.0); %Neutrophils 74.3 % (42.0-75.0); Hemoglobin 10.7 g/dL (14.0-18.0); Mean Corpuscular HGB CONC 32.5 g/dL (32.0-36.0); Mean Corpuscular Hemoglobin 28.5 pg (27.0-31.0); Mean Corpuscular Volume 87.8 fL (78.0-98.0); Mean Platelet Volume 9.7 fL (7.4-10.4); Platelet Count 259 thou/uL (130-400); RBC Distribution Width 13.4 % (11.5-14.5); Red Blood Cell (RBC) Count 3.76 mill/uL (4.70-6.10); White Blood Cell (WBC) Count 8.1 thou/uL (4.8-10.8)
[2019-10-05 07:00] LABS: Anion Gap 14 mmol/L (10-20); BUN (Urea Nitrogen) 10 mg/dL (8.4-25.7); Calc. Creatinine Clearance 116 mL/min (70-130); Calcium 8.5 mg/dL (7.8-10.44); Carbon Dioxide 24 mmol/L (23-31); Chloride 103 mmol/L (98-107); Estimated GFR-MDRD 86; Glucose 131 mg/dL (80-115); Sodium 137 mmol/L (136-145)
[2019-10-05] MEDS: Famotidine 20 MG TAB PO SCH ×2 (08:47→20:48)
[2019-10-05] MEDS: Aspirin 81 mg Enteric Coated Tablet PO SCH (08:48)
[2019-10-05] MEDS: Clopidogrel Bisulfate 75 MG TAB PO SCH (08:48)
[2019-10-05] MEDS: Carvedilol 25 MG TAB PO SCH ×2 (08:48→17:24)
[2019-10-05] MEDS: Piperacillin/Tazobactam 4.5 GM in Sodium Chloride 0.9% 100 ML IVPB SCH ×2 (08:49→14:55)
[2019-10-05] MEDS: Enoxaparin Sodium 40 MG/0.4 ML SYRINGE SC SCH (08:49)
[2019-10-05] MEDS: Torsemide 20 MG TAB PO SCH (08:50)
[2019-10-05] MEDS: HYDROcodone/Acetaminophen 5/325 mg Tablet PO PRN ×2 (08:56→20:55)
[2019-10-05] MEDS: Sacubitril 49 MG/Valsartan 51 MG TABLET PO SCH ×2 (09:56→20:54)
[2019-10-05] MEDS: Icosapent Ethyl 1 GM CAPSULE PO SCH ×2 (09:56→17:24)
[2019-10-05] MEDS: Sodium Chloride 0.9% 1,000 ML IV SCH ×2 (14:55→20:57)
--- NOTE | 2019-10-05 18:59 | PDOC.HOSPP ---
- Subjective Encounter Date: 10/05/19 Encounter Time: 13:00 Subjective: pt up in bed no complains - Objective Vital Signs & Weight: Vital Signs (12 hours) Temp Pulse Pulse Resp BP BP BP 10/05/19 16:00 98.1 F 70 20 113/65 10/05/19 11:00 98.0 F 69 20 123/66 10/05/19 09:34 80 112/66 10/05/19 08:00 10/05/19 07:23 98.1 F 78 20 148/61 H Pulse Ox Pulse Ox 10/05/19 16:00 98 10/05/19 11:00 92 L 10/05/19 09:34 96 10/05/19 08:00 96 10/05/19 07:23 96 Weight Admit Weight 221 lb Weight 221 lb 5.506 oz I&O: 10/04/19 10/05/19 10/06/19 06:59 06:59 06:59 Intake Total 850 720 Balance 850 720 Result Diagrams: 10/05/19 06:13 10/05/19 06:13 Additional Labs: Accuchecks 10/05/19 10/05/19 10/05/19 16:15 11:26 05:25 POC Glucose 139 H 138 H 133 H 10/04/19 20:26 POC Glucose 136 H Hospitalist ROS - Review of Systems Respiratory: denies: cough, dry, shortness of breath, hemoptysis, SOB with excertion, pleuritic pain, sputum, wheezing, other Cardiovascular: denies: chest pain, palpitations, orthopnea, paroxysmal noc. dyspnea, edema, light headedness, other Gastrointestinal: denies: nausea, vomiting, abdominal pain, diarrhea, constipation, melena, hematochezia, other - Medication Medications: Active Medications Generic Name Dose Route Start Last Admin Trade Name Freq PRN Reason Stop Dose Admin Hydrocodone Bitart/Acetaminophen 2 tab 10/04/19 18:52 10/05/19 08:56 [place] 5/325 PO 2 tab Q4H PRN Administration Severe Pain (7-10) Aspirin 81 mg 10/05/19 09:00 10/05/19 08:48 Ecotrin PO 81 mg DAILY IFRAH Administration Atorvastatin Calcium 40 mg 10/04/19 21:00 10/04/19 20:47 Lipitor PO 40 mg HS IFRAH Administration Carvedilol 12.5 mg 10/05/19 08:00 10/05/19 17:24 Coreg PO 12.5 mg BID-WM IFRAH Administration Clopidogrel Bisulfate 75 mg 10/05/19 09:00 10/05/19 08:48 Plavix PO 75 mg DAILY IFRAH Administration Enoxaparin Sodium 40 mg 10/05/19 09:00 10/05/19 08:49 Lovenox SC 40 mg 0900 IFRAH Administration Famotidine 20 mg 10/04/19 21:00 10/05/19 08:47 Pepcid PO 20 mg BID IFRAH Administration Sodium Chloride 1,000 mls @ 50 mls/hr 10/04/19 19:00 10/05/19 14:55 Normal Saline 0.9% IV 1,000 mls .Q20H IFRAH Administration Vancomycin HCl 1.5 gm/ Device 300 mls @ 200 mls/hr 10/05/19 06:00 10/05/19 17 :25 IVPB 300 mls 0600,1800 IFRAH Administration Piperacillin Sod/Tazobactam 100 mls @ 200 mls/hr 10/04/19 23:59 10/05/19 14: 55 Sod 4.5 gm/ Sodium Chloride IVPB 100 mls 0800,1600,2359 IFRAH Administration Miscellaneous Medication 2 gm 10/05/19 08:00 10/05/19 17:24 Vascepa PO 2 gm BID- IFRAH Administration Sacubitril/Valsartan 2 tab 10/04/19 21:00 10/05/19 09:56 Entresto 49 Mg-51 Mg Tablet PO 2 tab BID IFRAH Administration Torsemide 10 mg 10/05/19 09:00 10/05/19 08:50 Demadex PO 10 mg DAILY IFRAH Administration - Exam Heart: negative: RRR, no murmur, no gallops, no rubs, normal peripheral pulses, irregular, diminshed peripheral pulses, murmur present, II/IV, III/IV Respiratory: negative: CTAB, no wheezes, no rales, no ronchi, normal chest expansion, no tachypnea, normal percussion, rales, rhonchi, tachypneic, wheezes Gastrointestinal: negative: soft, non-tender, non-distended, normal bowel sounds , no palpable masses, no hepatomegaly, no splenomegaly, no bruit, no guarding, no rigidity, tender to palpation, distended, diminished bowl sounds, voluntary guarding Skin - other findings: necrotic changes noted to left 5th toe Hosp A/P (1) Cellulitis of left lower extremity Code(s): L03.116 - CELLULITIS OF LEFT LOWER LIMB Status: Acute (2) CAD (coronary artery disease) Code(s): I25.10 - ATHSCL HEART DISEASE OF [place] CORONARY ARTERY W/O ANG PCTRS Status: Chronic Qualifiers: (3) Diabetes mellitus Code(s): E11.9 - TYPE 2 DIABETES MELLITUS WITHOUT COMPLICATIONS Status: Chronic (4) HTN (hypertension) Code(s): I10 - ESSENTIAL (PRIMARY) HYPERTENSION Status: Chronic Qualifiers: (5) PVD (peripheral vascular disease) Code(s): I73.9 - PERIPHERAL VASCULAR DISEASE, UNSPECIFIED Status: Chronic (6) Tobacco use Code(s): Z72.0 - TOBACCO USE Status: Chronic - Plan pt's left 5th toe appears gangernous. pt recently had a stenting and angio of left external iliac. pt now comes in with necrotic left 4th and 5th toe. will continue broad spectrum abx. will consult ID. will continue asa/plavix
[2019-10-05] MEDS: Atorvastatin Calcium 40 MG TAB PO SCH (20:48)
[2019-10-05] MEDS: Melatonin 3 MG TAB PO PRN (20:55)
[2019-10-06] MEDS: Piperacillin/Tazobactam 4.5 GM in Sodium Chloride 0.9% 100 ML IVPB SCH ×3 (00:06→15:30)
[2019-10-06] MEDS: Vancomycin 1.5 GRAM/300 ML BAG 1.5 GM in Premix Bag 1 BAG IVPB SCH (05:29)
[2019-10-06] MEDS: Famotidine 20 MG TAB PO SCH ×2 (08:01→22:16)
[2019-10-06] MEDS: Icosapent Ethyl 1 GM CAPSULE PO SCH ×2 (08:01→16:46)
[2019-10-06] MEDS: Carvedilol 25 MG TAB PO SCH ×2 (08:02→16:46)
[2019-10-06] MEDS: Aspirin 81 mg Enteric Coated Tablet PO SCH ×2 (08:02→08:06)
[2019-10-06] MEDS: Torsemide 20 MG TAB PO SCH (08:02)
[2019-10-06] MEDS: Enoxaparin Sodium 40 MG/0.4 ML SYRINGE SC SCH ×2 (08:03→08:06)
[2019-10-06] MEDS: Clopidogrel Bisulfate 75 MG TAB PO SCH ×2 (08:03→08:06)
[2019-10-06] MEDS: Sacubitril 49 MG/Valsartan 51 MG TABLET PO SCH ×2 (11:10→22:40)
[2019-10-06] MEDS: Sodium Chloride 0.9% 1,000 ML IV SCH ×2 (11:10→22:25)
[2019-10-06] MEDS: HYDROcodone/Acetaminophen 5/325 mg Tablet PO PRN ×2 (16:45→22:21)
[2019-10-06 17:20] LABS: Vancomycin, Trough 22.9 ug/mL
[2019-10-06] MEDS ORDERED: Vancomycin HCl 1.25 GM in Sodium Chloride 0.9% 250 ML 250 ML IVPB SCH (18:00)
[2019-10-06] MEDS: Atorvastatin Calcium 40 MG TAB PO SCH (22:17)
--- NOTE | 2019-10-06 22:50 | CON ---
DATE OF CONSULTATION: 10/06/2019 REASON FOR CONSULTATION: Left foot inflammatory changes, recurrence in a 69-year-old with history of coronary artery disease, peripheral vascular disease and prior bypass graft surgery, prior revascularizations in [place], who had admission last year to [facility] with atrial flutter and then in August 2019, he came in with swelling and pain in the left lower extremity associated with a blister. Impression was peripheral vascular disease. He was evaluated by Dr. Mari and had an angiogram of the lower extremity and common iliac stenting. He had been placed on Rocephin with improvement in inflammatory process, was switched to oral Keflex, but now has developed necrotic changes in the left 5th toe. This was associated with pain. Otherwise, he did not have any dyspnea, a little bit of cough. No vomiting. No bleeding. No abdominal pain or dyspnea and no chest pain. PAST MEDICAL HISTORY: Coronary artery disease, PVD, type 2 diabetes, chronic back pain, hypertension, cellulitis of left lower extremity, bypass graft surgery, fem-pop bypass and then stenting of left lower extremity tibial artery. Previous cardioversion for atrial flutter. FAMILY HISTORY: Diabetes, hypertension. 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 Quit smoking 3 years before and also used to drink heavily, but quit reportedly. No drug use. ALLERGIES: NONE. CURRENT MEDICATIONS: Include p.r.n. medications: 1. Ecotrin. 2. Lipitor. 3. Dulcolax. 4. Tums. 5. Coreg. 6. Plavix. 7. Lovenox. 8. Pepcid. 9. Insulin. 10. Melatonin. 11. Zofran. 12. Zosyn. 13. Vancomycin. PHYSICAL EXAMINATION: VITAL SIGNS: Temperature has been normal since admission. BP 150/80, pulse 65, respirations 22, O2 saturation 99. SKIN: With area of cyanosis and necrotic eschar in the lateral aspect of the left 5th toe. Long nails with areas of ulceration in the medial aspect of the left foot as well and areas of skin erythema in the dorsal aspect. The 4th toe is also involved by ischemic changes. The 5th toe is completely necrotic. There is onychodystrophy with very long nails which are thickened. HEENT: His ocular movements are conjugate. Oral cavity, numerous missing teeth. NECK: Supple. LUNGS: Symmetric breath sounds with no crackles or wheezing. HEART: S1-S2, regular rate. ABDOMEN: Soft, not distended or tender. No ascites. No bladder distention. EXTREMITIES: No joint inflammatory activity. Moves extremities, some limitations. Diminished pulses in dorsalis pedis. Cap refill is delayed. LABORATORY DATA: White cell count was 10.8 and 8.1, hemoglobin 12.5 and 10. Platelets 321 and 259, with initially 75% neutrophils and now 74%. INR was 1.1 and a chemistry was fairly unremarkable except for glucose 154. Lactic acid was 2.3 and now 1.5 and liver profile normal, serum total protein is 8.9. CRP was 9.6. Globulin was 4.9. Foot wound with Enterococcus. Two sets of blood cultures thus far no growth. IMAGING: No evidence of cortical irregularity or periosteal reaction. ASSESSMENT: Peripheral vascular disease, coronary disease and type 2 diabetes. Former smoker. Previous interventions, the most recent one last month by Dr. Mari in one of the proximal areas of occlusion in the left lower extremity. The patient now comes back with overt gangrene of the lateral aspect of the left forefoot involving the 5th toe entirely in the 5th ray and as well as the 4th toe. He has some areas of superficial ulceration in the medial aspect of the left foot as well. DISCUSSION: The patient will continue broad spectrum coverage. He is at risk for amputation at the BKA level depending on clinical progress. It could also just end up with an amputation of the involved toes. Healing will be a problem for him because of the vascular disease. He must have some element of small-vessel disease in addition to the large vessel involvement, so the overall prognosis for limb salvage is not great. Job ID: [id number]
[2019-10-07] MEDS: Piperacillin/Tazobactam 4.5 GM in Sodium Chloride 0.9% 100 ML IVPB SCH (01:17)
--- NOTE | 2019-10-07 06:04 | PDOC.HOSPP ---
- Subjective Encounter Date: 10/06/19 Encounter Time: 10:00 Subjective: pt up in bed no complains - Objective Vital Signs & Weight: Vital Signs (12 hours) Temp Pulse Resp BP BP Pulse Ox 10/07/19 03:54 97.7 F 73 18 143/78 H 97 10/06/19 23:34 97.9 F 75 18 135/68 96 10/06/19 20:21 97.8 F 70 18 102/63 98 10/06/19 20:00 98 Weight Admit Weight 221 lb Weight 221 lb 5.506 oz I&O: 10/05/19 10/06/19 10/07/19 06:59 06:59 06:59 Intake Total 850 1920 480 Output Total 775 Balance 850 1145 480 Result Diagrams: 10/05/19 06:13 10/05/19 06:13 Additional Labs: Accuchecks 10/06/19 10/06/19 10/06/19 20:24 16:30 11:30 POC Glucose 118 H 115 H 124 H Hospitalist ROS - Review of Systems Cardiovascular: denies: chest pain, palpitations, orthopnea, paroxysmal noc. dyspnea, edema, light headedness, other Gastrointestinal: denies: nausea, vomiting, abdominal pain, diarrhea, constipation, melena, hematochezia, other Genitourinary: denies: dysuria, frequency, incontinence, hematuria, retention, other - Medication Medications: Active Medications Generic Name Dose Route Start Last Admin Trade Name Freq PRN Reason Stop Dose Admin Hydrocodone Bitart/Acetaminophen 1 tab 10/04/19 18:52 10/06/19 16:45 [place] 5/325 PO 1 tab Q4H PRN Administration Moderate Pain (4-6) Hydrocodone Bitart/Acetaminophen 2 tab 10/04/19 18:52 10/06/19 22:21 [place] 5/325 PO 2 tab Q4H PRN Administration Severe Pain (7-10) Aspirin 81 mg 10/05/19 09:00 10/06/19 08:06 Ecotrin PO Not Given DAILY IFRAH Atorvastatin Calcium 40 mg 10/04/19 21:00 10/06/19 22:17 Lipitor PO 40 mg HS IFRAH Administration Carvedilol 12.5 mg 10/05/19 08:00 10/06/19 16:46 Coreg PO 12.5 mg BID-WM IFRAH Administration Clopidogrel Bisulfate 75 mg 10/05/19 09:00 10/06/19 08:06 Plavix PO Not Given DAILY IFRAH Enoxaparin Sodium 40 mg 10/05/19 09:00 10/06/19 08:06 Lovenox SC Not Given 0900 IFRAH Famotidine 20 mg 10/04/19 21:00 10/06/19 22:16 Pepcid PO 20 mg BID IFRAH Administration Melatonin 3 mg 10/05/19 18:56 10/05/19 20:55 Melatonin PO 3 mg HSPRN PRN Administration Insomnia Miscellaneous Medication 2 gm 10/05/19 08:00 10/06/19 16:46 Vascepa PO 2 gm BID-WM IFRAH Administration Ondansetron HCl 4 mg 10/04/19 18:52 10/06/19 16:48 Zofran IVP 4 mg Q6H PRN Administration Nausea/Vomiting Sacubitril/Valsartan 2 tab 10/04/19 21:00 10/06/19 22:40 Entresto 49 Mg-51 Mg Tablet PO Not Given BID [facility] Torsemide 10 mg 10/05/19 09:00 10/06/19 08:02 Demadex PO 10 mg DAILY IFRAH Administration - Exam Heart: negative: RRR, no murmur, no gallops, no rubs, normal peripheral pulses, irregular, diminshed peripheral pulses, murmur present, II/IV, III/IV Respiratory: negative: CTAB, no wheezes, no rales, no ronchi, normal chest expansion, no tachypnea, normal percussion, rales, rhonchi, tachypneic, wheezes Gastrointestinal: negative: soft, non-tender, non-distended, normal bowel sounds , no palpable masses, no hepatomegaly, no splenomegaly, no bruit, no guarding, no rigidity, tender to palpation, distended, diminished bowl sounds, voluntary guarding Extremities: 1+ LE edema Extremities - other findings: left 5th toe necrotic Hosp A/P (1) Cellulitis of left lower extremity Code(s): L03.116 - CELLULITIS OF LEFT LOWER LIMB Status: Acute (2) CAD (coronary artery disease) Code(s): I25.10 - ATHSCL HEART DISEASE OF [place] CORONARY ARTERY W/O ANG PCTRS Status: Chronic Qualifiers: (3) Diabetes mellitus Code(s): E11.9 - TYPE 2 DIABETES MELLITUS WITHOUT COMPLICATIONS Status: Chronic (4) HTN (hypertension) Code(s): I10 - ESSENTIAL (PRIMARY) HYPERTENSION Status: Chronic Qualifiers: (5) PVD (peripheral vascular disease) Code(s): I73.9 - PERIPHERAL VASCULAR DISEASE, UNSPECIFIED Status: Chronic (6) Tobacco use Code(s): Z72.0 - TOBACCO USE Status: Chronic - Plan pt's left 5th toe appears gangernous. pt recently had a stenting and angio of left external iliac. pt now comes in with necrotic left 4th and 5th toe. will continue broad spectrum abx. will consult ID. will continue asa/plavix 10/06 will keep pt npo, will change abx per ID and cx. blood sugars stable
[2019-10-07] MEDS: Enoxaparin Sodium 40 MG/0.4 ML SYRINGE SC SCH (07:19)
[2019-10-07] MEDS: Torsemide 20 MG TAB PO SCH (08:59)
[2019-10-07] MEDS: Famotidine 20 MG TAB PO SCH ×2 (08:59→21:02)
[2019-10-07] MEDS: Carvedilol 25 MG TAB PO SCH ×2 (08:59→16:35)
[2019-10-07] MEDS: Sacubitril 49 MG/Valsartan 51 MG TABLET PO SCH ×2 (09:00→20:33)
[2019-10-07] MEDS: Icosapent Ethyl 1 GM CAPSULE PO SCH ×2 (09:00→16:35)
[2019-10-07] MEDS: Clopidogrel Bisulfate 75 MG TAB PO SCH ×2 (09:01→11:42)
[2019-10-07] MEDS: Aspirin 81 mg Enteric Coated Tablet PO SCH ×2 (09:01→11:42)
[2019-10-07] MEDS: AMPicillin 1 GM in Sodium Chloride 0.9% 100 ML IVPB SCH ×3 (09:15→20:31)
[2019-10-07] MEDS: HYDROcodone/Acetaminophen 5/325 mg Tablet PO PRN ×2 (12:48→21:07)
--- NOTE | 2019-10-07 13:10 | CON ---
DATE OF CONSULTATION: HISTORY OF PRESENT ILLNESS: Tripp Bae is a 69-year-old male patient, 50-year history of smoking, cessation 3 years ago, had coronary artery bypass grafting by Dr. Mari 12 years ago, but subsequently followed up in [place], had bilateral carotid endarterectomies and bilateral femoral popliteal artery bypass grafts and iliac stenting. The patient presented a few weeks ago to this institution with rest pain of his left foot and dry gangrene. Dr. Mari saw him. CT angio revealed in-stent stenosis left external iliac artery. His fem-pop left was noted to be open. The patient underwent intervention with stenting of his iliac artery, but despite this he continues to have pain in his left foot progression of gangrene in his lateral foot and medial foot and toes. He has rest pain involving most of his foot. He has been on Eliquis, but has not had that in several days. He has been seeing this hospitalization by Dr. Orlando yesterday, dry gangrenous process noted. I have talked to Dr. Erickson Mari today and he agrees there is no intervention available to him to salvage his foot. I have talked to the patient and on speaker phone conference call, the patient and his daughter, spending more than an hour with him discussing treatment options and recommending left below-knee amputation with postoperative swing-bed or rehab stay. Plan is to perform this tomorrow. He understands risks and benefits, consents. ALLERGIES: NONE. SOCIAL HISTORY: Tobacco none for 3 years, many year history of tobacco use prior. MEDICATIONS: At home, 1. Gabapentin. 2. Farxiga. 3. Vascepa. 4. Glucotrol. 5. Demadex. 6. Plavix. 7. Coreg. 8. Nitrostat. 9. Eliquis. 10. Tramadol. 11. Calcium. 12. Atorvastatin. PAST SURGICAL HISTORY: Twelve years ago, coronary artery bypass grafting, carotid endarterectomies bilaterally in [place], subsequently femoral-popliteal bypasses bilaterally in [place]. Stenting iliac system in [place], repeat stenting locally a few weeks ago with Dr. Erickson Mari, iliac system. Patent fem-pop [id number] graft. PAST MEDICAL HISTORY: PAD, tobacco abuse, coronary artery disease, stable. He saw Dr. Solis, a few months ago and was told that his heart was okay. Echocardiogram, February 15, 2019, no clots. Mild MR, normal ventricular systolic function, normal EF. Numerous cardioversions by Dr. Solis, 02/15/2019. EP study with RFA, Dr. Denis. Chest x-ray unremarkable. White count 10. Accu-Cheks 100 to 128. Renal function is normal. PHYSICAL EXAMINATION: VITAL SIGNS: Height 6 feet, weight 221 pounds, 30 BMI, temperature 97.6, heart rate 72, blood pressure 131/78. HEAD, EYES, EARS, NOSE, AND THROAT: Unremarkable. LUNGS: Clear to auscultation. CARDIAC: Regular rate and rhythm without murmur or gallop. ABDOMEN: Soft, nontender. Palpable femoral pulses bilaterally. Dopplerable faint monophasic pulses, left foot. Gangrene changes, lateral left foot and medial along the great toe. Rest pain in his foot to his ankle. ASSESSMENT AND PLAN: 1. Peripheral arterial disease, history of tobacco abuse, cessation 3 years ago, multiple interventions with femoral-popliteal and stenting of his iliac system without resolution of his rest pain, left foot. He has comorbidities of diabetes, elevated cholesterol, tobacco abuse. We would recommend BKA. I have talked to the patient and per conference call on his cell phone with his daughter, who is out of town and they are agreeable. We will plan this tomorrow. He has been off his Eliquis for several days. 2. History of atrial fibrillation with cardioversions and radiofrequency ablation, Dr. Denis, on anticoagulation, continue to hold perioperatively. 3. Diabetes mellitus. 4. Elevated cholesterol. 5. Hypertension. 6. Tobacco abuse. 7. Coronary artery disease, stable. Saw Dr. Solis a few months ago. Job ID: [id number]
--- NOTE | 2019-10-07 18:54 | PDOC.HOSPP ---
- Subjective Encounter Date: 10/07/19 Encounter Time: 11:45 Subjective: pt up in bed no complains - Objective Vital Signs & Weight: Vital Signs (12 hours) Temp Pulse Resp BP BP Pulse Ox 10/07/19 14:45 138/83 10/07/19 12:50 77 18 109/41 L 97 10/07/19 07:39 97.6 F 72 18 131/78 97 Weight Admit Weight 221 lb Weight 221 lb 5.506 oz I&O: 10/06/19 10/07/19 10/08/19 06:59 06:59 06:59 Intake Total 1686 112 5731 Output Total 775 700 Balance 4594 658 3279 Result Diagrams: 10/05/19 06:13 10/05/19 06:13 Additional Labs: Accuchecks 10/07/19 10/07/19 10/07/19 16:24 11:38 05:42 POC Glucose 116 H 123 H 111 H 10/06/19 20:24 POC Glucose 118 H Hospitalist ROS - Review of Systems Respiratory: denies: cough, dry, shortness of breath, hemoptysis, SOB with excertion, pleuritic pain, sputum, wheezing, other Cardiovascular: denies: chest pain, palpitations, orthopnea, paroxysmal noc. dyspnea, edema, light headedness, other Gastrointestinal: denies: nausea, vomiting, abdominal pain, diarrhea, constipation, melena, hematochezia, other - Medication Medications: Active Medications Generic Name Dose Route Start Last Admin Trade Name Freq PRN Reason Stop Dose Admin Hydrocodone Bitart/Acetaminophen 1 tab 10/04/19 18:52 10/06/19 16:45 [place] 5/325 PO 1 tab Q4H PRN Administration Moderate Pain (4-6) Hydrocodone Bitart/Acetaminophen 2 tab 10/04/19 18:52 10/07/19 12:48 [place] 5/325 PO 2 tab Q4H PRN Administration Severe Pain (7-10) Aspirin 81 mg 10/05/19 09:00 10/07/19 11:42 Ecotrin PO 81 mg DAILY IFRAH Administration Atorvastatin Calcium 40 mg 10/04/19 21:00 10/06/19 22:17 Lipitor PO 40 mg HS IFRAH Administration Carvedilol 12.5 mg 10/05/19 08:00 10/07/19 16:35 Coreg PO 12.5 mg BID-WM IFRAH Administration Clopidogrel Bisulfate 75 mg 10/05/19 09:00 10/07/19 11:42 Plavix PO 75 mg DAILY IFRAH Administration Enoxaparin Sodium 40 mg 10/05/19 09:00 10/07/19 07:19 Lovenox SC Not Given 0900 [facility] Famotidine 20 mg 10/04/19 21:00 10/07/19 08:59 Pepcid PO 20 mg BID IFRAH Administration Ampicillin Sodium 1 gm/ Sodium 100 mls @ 200 mls/hr 10/07/19 08:00 10/07/19 14:37 Chloride IVPB 100 mls 0200,0800,1400,2000 IFRAH Administration Melatonin 3 mg 10/05/19 18:56 10/05/19 20:55 Melatonin PO 3 mg HSPRN PRN Administration Insomnia Miscellaneous Medication 2 gm 10/05/19 08:00 10/07/19 16:35 Vascepa PO 2 gm BID-WM IFRAH Administration Ondansetron HCl 4 mg 10/04/19 18:52 10/06/19 16:48 Zofran IVP 4 mg Q6H PRN Administration Nausea/Vomiting Sacubitril/Valsartan 2 tab 10/04/19 21:00 10/07/19 09:00 Entresto 49 Mg-51 Mg Tablet PO 2 tab BID IFRAH Administration Sodium Chloride 10 ml 10/04/19 18:52 10/07/19 09:00 Flush - Normal Saline IVF 10 ml Q12HR PRN Administration Saline Flush Torsemide 10 mg 10/05/19 09:00 10/07/19 08:59 Demadex PO 10 mg DAILY IFRAH Administration - Exam Heart: negative: RRR, no murmur, no gallops, no rubs, normal peripheral pulses, irregular, diminshed peripheral pulses, murmur present, II/IV, III/IV Respiratory: negative: CTAB, no wheezes, no rales, no ronchi, normal chest expansion, no tachypnea, normal percussion, rales, rhonchi, tachypneic, wheezes Gastrointestinal: negative: soft, non-tender, non-distended, normal bowel sounds , no palpable masses, no hepatomegaly, no splenomegaly, no bruit, no guarding, no rigidity, tender to palpation, distended, diminished bowl sounds, voluntary guarding Extremities: 1+ LE edema Extremities - other findings: necrotic to left leg Hosp A/P (1) Cellulitis of left lower extremity Code(s): L03.116 - CELLULITIS OF LEFT LOWER LIMB Status: Acute (2) CAD (coronary artery disease) Code(s): I25.10 - ATHSCL HEART DISEASE OF [place] CORONARY ARTERY W/O ANG PCTRS Status: Chronic Qualifiers: (3) Diabetes mellitus Code(s): E11.9 - TYPE 2 DIABETES MELLITUS WITHOUT COMPLICATIONS Status: Chronic (4) HTN (hypertension) Code(s): I10 - ESSENTIAL (PRIMARY) HYPERTENSION Status: Chronic Qualifiers: (5) PVD (peripheral vascular disease) Code(s): I73.9 - PERIPHERAL VASCULAR DISEASE, UNSPECIFIED Status: Chronic (6) Tobacco use Code(s): Z72.0 - TOBACCO USE Status: Chronic - Plan pt's left 5th toe appears gangernous. pt recently had a stenting and angio of left external iliac. pt now comes in with necrotic left 4th and 5th toe. will continue broad spectrum abx. will consult ID. will continue asa/plavix 10/05 will keep pt npo, will change abx per ID and cx. blood sugars stable 10/06 pt to go for surgery in am. spoke with surgeon. will continue abx for now. will get case management for snf.
[2019-10-07] MEDS: Atorvastatin Calcium 40 MG TAB PO SCH (20:33)
[2019-10-07] MEDS: Melatonin 3 MG TAB PO PRN (21:07)
[2019-10-08] MEDS: AMPicillin 1 GM in Sodium Chloride 0.9% 100 ML IVPB SCH ×4 (01:54→20:39)
[2019-10-08] MEDS: Sacubitril 49 MG/Valsartan 51 MG TABLET PO SCH ×2 (08:24→20:37)
[2019-10-08] MEDS: Icosapent Ethyl 1 GM CAPSULE PO SCH ×2 (08:24→17:53)
[2019-10-08] MEDS: Famotidine 20 MG TAB PO SCH ×2 (08:24→21:43)
[2019-10-08] MEDS: HYDROcodone/Acetaminophen 5/325 mg Tablet PO PRN ×2 (08:25→20:38)
[2019-10-08] MEDS: Torsemide 20 MG TAB PO SCH (08:26)
[2019-10-08] MEDS: Sodium Chloride 0.9% 1,000 ML IV SCH ×3 (08:26→20:44)
[2019-10-08] MEDS: Clopidogrel Bisulfate 75 MG TAB PO SCH (08:27)
[2019-10-08] MEDS: Enoxaparin Sodium 40 MG/0.4 ML SYRINGE SC SCH (08:27)
[2019-10-08] MEDS: Aspirin 81 mg Enteric Coated Tablet PO SCH (08:27)
[2019-10-08] MEDS: Carvedilol 25 MG TAB PO SCH ×2 (08:27→17:53)
[2019-10-08] MEDS ORDERED: PROPOFOL 200 MG/20 ML VIAL ONE (11:42)
[2019-10-08] MEDS ORDERED: Dexamethasone 20 MG/5 ML VIAL ONE (11:42)
[2019-10-08] MEDS ORDERED: Bupivacaine HCl 0.5%/Epinephrine 1:200,000/PF 30 ml Vial ONE (11:42)
[2019-10-08] MEDS ORDERED: Ondansetron PF 4 MG/2 ML Vial ONE (11:42)
[2019-10-08] MEDS ORDERED: EPHEDRINE 25 MG/5 ML SYRINGE ONE (11:42)
[2019-10-08] MEDS ORDERED: Lidocaine 1% PF 5 ML VIAL ONE (11:42)
[2019-10-08] MEDS ORDERED: Fentanyl 100 MCG/2 ML VIAL ONE ×3 (13:15→15:36)
--- NOTE | 2019-10-08 13:23 | PDOC.HOSPP ---
- Subjective Encounter Date: 10/08/19 Encounter Time: 11:45 Subjective: pt up in bed is upset about his surgery. - Objective Vital Signs & Weight: Vital Signs (12 hours) Temp Pulse Resp BP Pulse Ox 10/08/19 08:00 98.1 F 77 18 149/69 H 95 Weight Admit Weight 221 lb Weight 221 lb 5.506 oz I&O: 10/07/19 10/08/19 10/09/19 06:59 06:59 06:59 Intake Total 480 1940 Output Total 700 Balance 480 1240 Result Diagrams: 10/05/19 06:13 10/05/19 06:13 Additional Labs: Accuchecks 10/08/19 10/08/19 10/07/19 11:30 06:18 21:11 POC Glucose 125 H 119 H 133 H 10/07/19 16:24 POC Glucose 116 H Hospitalist ROS - Review of Systems Cardiovascular: denies: chest pain, palpitations, orthopnea, paroxysmal noc. dyspnea, edema, light headedness, other Gastrointestinal: denies: nausea, vomiting, abdominal pain, diarrhea, constipation, melena, hematochezia, other Genitourinary: denies: dysuria, frequency, incontinence, hematuria, retention, other - Medication Medications: Active Medications Generic Name Dose Route Start Last Admin Trade Name Freq PRN Reason Stop Dose Admin Hydrocodone Bitart/Acetaminophen 1 tab 10/04/19 18:52 10/08/19 08:25 [place] 5/325 PO 1 tab Q4H PRN Administration Moderate Pain (4-6) Hydrocodone Bitart/Acetaminophen 2 tab 10/04/19 18:52 10/07/19 21:07 [place] 5/325 PO 2 tab Q4H PRN Administration Severe Pain (7-10) Aspirin 81 mg 10/05/19 09:00 10/08/19 08:27 Ecotrin PO Not Given DAILY IFRAH Atorvastatin Calcium 40 mg 10/04/19 21:00 10/07/19 20:33 Lipitor PO 40 mg HS IFRAH Administration Carvedilol 12.5 mg 10/05/19 08:00 10/08/19 08:27 Coreg PO 12.5 mg BID-WM IFRAH Administration Clopidogrel Bisulfate 75 mg 10/05/19 09:00 10/08/19 08:27 Plavix PO Not Given DAILY IFRAH Enoxaparin Sodium 40 mg 10/05/19 09:00 10/08/19 08:27 Lovenox SC Not Given 0900 IFRAH Famotidine 20 mg 10/04/19 21:00 10/08/19 08:24 Pepcid PO 20 mg BID IFRAH Administration Ampicillin Sodium 1 gm/ Sodium 100 mls @ 200 mls/hr 10/07/19 08:00 10/08/19 08:26 Chloride IVPB 100 mls 0200,0800,1400,2000 IFRAH Administration Sodium Chloride 1,000 mls @ 100 mls/hr 10/08/19 08:00 10/08/19 08:26 Normal Saline 0.9% IV 1,000 mls .Q10H IFRAH Administration Melatonin 3 mg 10/05/19 18:56 10/07/19 21:07 Melatonin PO 3 mg HSPRN PRN Administration Insomnia Miscellaneous Medication 2 gm 10/05/19 08:00 10/08/19 08:24 Vascepa PO 2 gm BID-WM IFRAH Administration Ondansetron HCl 4 mg 10/04/19 18:52 10/06/19 16:48 Zofran IVP 4 mg Q6H PRN Administration Nausea/Vomiting Sacubitril/Valsartan 2 tab 10/04/19 21:00 10/08/19 08:24 Entresto 49 Mg-51 Mg Tablet PO 2 tab BID IFRAH Administration Sodium Chloride 10 ml 10/04/19 18:52 10/07/19 09:00 Flush - Normal Saline IVF 10 ml Q12HR PRN Administration Saline Flush Torsemide 10 mg 10/05/19 09:00 10/08/19 08:26 Demadex PO 10 mg DAILY IFRAH Administration - Exam Heart: negative: RRR, no murmur, no gallops, no rubs, normal peripheral pulses, irregular, diminshed peripheral pulses, murmur present, II/IV, III/IV Respiratory: negative: CTAB, no wheezes, no rales, no ronchi, normal chest expansion, no tachypnea, normal percussion, rales, rhonchi, tachypneic, wheezes Gastrointestinal: negative: soft, non-tender, non-distended, normal bowel sounds , no palpable masses, no hepatomegaly, no splenomegaly, no bruit, no guarding, no rigidity, tender to palpation, distended, diminished bowl sounds, voluntary guarding Extremities - other findings: left last 5th toe necrotic Hosp A/P (1) Cellulitis of left lower extremity Code(s): L03.116 - CELLULITIS OF LEFT LOWER LIMB Status: Acute (2) CAD (coronary artery disease) Code(s): I25.10 - ATHSCL HEART DISEASE OF [place] CORONARY ARTERY W/O ANG PCTRS Status: Chronic Qualifiers: (3) Diabetes mellitus Code(s): E11.9 - TYPE 2 DIABETES MELLITUS WITHOUT COMPLICATIONS Status: Chronic (4) HTN (hypertension) Code(s): I10 - ESSENTIAL (PRIMARY) HYPERTENSION Status: Chronic Qualifiers: (5) PVD (peripheral vascular disease) Code(s): I73.9 - PERIPHERAL VASCULAR DISEASE, UNSPECIFIED Status: Chronic (6) Tobacco use Code(s): Z72.0 - TOBACCO USE Status: Chronic - Plan pt's left 5th toe appears gangernous. pt recently had a stenting and angio of left external iliac. pt now comes in with necrotic left 4th and 5th toe. will continue broad spectrum abx. will consult ID. will continue asa/plavix 10/05 will keep pt npo, will change abx per ID and cx. blood sugars stable 10/06 pt to go for surgery in am. spoke with surgeon. will continue abx for now. will get case management for snf. 10/07 pt on eliquis which has been held for his surgery. will resume once ok with surgeon. He is undergoing left bka.
[2019-10-08] MEDS ORDERED: EPINEPHrine 1 MG/ML AMP ONE (13:54)
[2019-10-08] MEDS ORDERED: Midazolam HCl 2 mg/2 ml Vial ONE (13:54)
[2019-10-08] MEDS ORDERED: Acetaminophen 500 MG TAB PO PRN (15:50)
[2019-10-08] MEDS ORDERED: Ibuprofen 600 MG TAB PO PRN (15:50)
[2019-10-08] MEDS ORDERED: traMADol HCl 50 MG TAB PO PRN (15:50)
[2019-10-08] MEDS ORDERED: Ondansetron HCl/PF 4 MG/2 ML Vial IVP PRN (17:01)
[2019-10-08] MEDS ORDERED: Promethazine HCl 25 MG/ML VIAL SLOW IVP PRN (17:01)
[2019-10-08] MEDS ORDERED: Promethazine HCl 25 MG/ML VIAL IM PRN (17:01)
[2019-10-08] MEDS: Atorvastatin Calcium 40 MG TAB PO SCH (20:38)
[2019-10-08] MEDS: Gabapentin 300 MG CAP PO SCH (20:39)
--- NOTE | 2019-10-08 23:49 | OP ---
DATE OF PROCEDURE: 10/08/2019 PREOPERATIVE DIAGNOSES: Peripheral arterial disease; gangrene, left foot despite femoral-popliteal and iliac stenting; ischemic left foot; diabetes mellitus; and history of tobacco abuse. PROCEDURE PERFORMED: Left below-knee amputation. ANESTHESIA: General, one-shot regional. ESTIMATED BLOOD LOSS: 150 mL. BLOOD TRANSFUSIONS: None. DESCRIPTION OF PROCEDURE: Patient was taken to the operating room, where under regional and general anesthesia, left lower extremity was prepared with ChloraPrep and draped in a routine fashion. Incision was made for below-knee amputation with a long posterior flap. Incision was carried down to skin and subcutaneous tissue, fascia, dividing muscular bundles between using cautery and vascular bundles divided between clamps, ligated with 2-0 silk ties. Tibia cleared the periosteum proximally, transected with a Gigli saw, bevelling anterior edge cephalad smoothing it with a rasp. Fibula cut an inch above the cut edge of the tibia. Good hemostasis noted. The wound was irrigated. Hemostasis gained with cautery and 2-0 Vicryl [id number] ties. Fascia approximated with 2-0 Vicryl skin with brennan. Sterile dressing applied. Job ID: [id number]
[2019-10-09] MEDS: HYDROcodone/Acetaminophen 5/325 mg Tablet PO PRN ×4 (00:15→19:17)
[2019-10-09] MEDS: Melatonin 3 MG TAB PO PRN (00:17)
[2019-10-09] MEDS: AMPicillin 1 GM in Sodium Chloride 0.9% 100 ML IVPB SCH ×4 (01:34→20:47)
[2019-10-09] MEDS: traMADol HCl 50 MG TAB PO PRN ×2 (01:41→09:10)
[2019-10-09 06:13] LABS: #Lymphocytes 0.9 thou/uL (1.20-3.40); #Monocytes 0.5 thou/uL (0.11-0.59); #Neutrophils 7.5 thou/uL (1.40-6.50); %Basophils 0.1 % (0.0-1.0); %Eosinophils 0.1 % (0.0-10.0); %Lymphocytes 9.7 % (21.0-51.0); %Monocytes 5.8 % (0.0-10.0); %Neutrophils 84.2 % (42.0-75.0); Hemoglobin 10.9 g/dL (14.0-18.0); Mean Corpuscular HGB CONC 30.8 g/dL (32.0-36.0); Mean Corpuscular Hemoglobin 27.3 pg (27.0-31.0); Mean Corpuscular Volume 88.6 fL (78.0-98.0); Mean Platelet Volume 9.8 fL (7.4-10.4); Platelet Count 328 thou/uL (130-400); RBC Distribution Width 13.6 % (11.5-14.5); Red Blood Cell (RBC) Count 4.01 mill/uL (4.70-6.10); White Blood Cell (WBC) Count 8.8 thou/uL (4.8-10.8)
[2019-10-09 06:35] LABS: Anion Gap 13 mmol/L (10-20); BUN (Urea Nitrogen) 14 mg/dL (8.4-25.7); Calc. Creatinine Clearance 118 mL/min (70-130); Calcium 8.3 mg/dL (7.8-10.44); Carbon Dioxide 25 mmol/L (23-31); Chloride 105 mmol/L (98-107); Estimated GFR-MDRD 89; Glucose 168 mg/dL (80-115); Potassium 3.9 mmol/L (3.5-5.1); Sodium 139 mmol/L (136-145)
[2019-10-09] MEDS: Aspirin 81 mg Enteric Coated Tablet PO SCH (09:13)
[2019-10-09] MEDS: Torsemide 20 MG TAB PO SCH (09:13)
[2019-10-09] MEDS: Clopidogrel Bisulfate 75 MG TAB PO SCH (09:13)
[2019-10-09] MEDS: Sacubitril 49 MG/Valsartan 51 MG TABLET PO SCH ×2 (09:13→20:49)
[2019-10-09] MEDS: Gabapentin 300 MG CAP PO SCH ×3 (09:14→20:48)
[2019-10-09] MEDS: Carvedilol 25 MG TAB PO SCH ×2 (09:14→16:40)
[2019-10-09] MEDS: Polyethylene Glycol 3350 17 GM Packet PO SCH (09:15)
[2019-10-09] MEDS: Enoxaparin Sodium 40 MG/0.4 ML SYRINGE SC SCH (09:15)
[2019-10-09] MEDS: Icosapent Ethyl 1 GM CAPSULE PO SCH ×2 (10:47→16:40)
[2019-10-09] MEDS: Famotidine 20 MG TAB PO SCH ×2 (10:48→20:48)
--- NOTE | 2019-10-09 14:14 | PDOC.HOSPP ---
- Subjective Encounter Date: 10/09/19 Encounter Time: 10:30 Subjective: pt up in bed no complains - Objective Vital Signs & Weight: Vital Signs (12 hours) Temp Pulse Resp BP Pulse Ox 10/09/19 11:23 97.5 F L 60 16 136/72 98 10/09/19 07:36 97.6 F 78 16 151/61 H 98 10/09/19 04:00 97.6 F 78 16 137/55 L 98 Weight Admit Weight 221 lb Weight 221 lb 5.506 oz I&O: 10/08/19 10/09/19 10/10/19 06:59 06:59 06:59 Intake Total 1940 1740 Output Total 700 500 Balance 1240 1240 Result Diagrams: 10/09/19 06:02 10/09/19 06:02 Additional Labs: Accuchecks 10/09/19 10/09/19 10/08/19 11:31 06:31 19:46 POC Glucose 137 H 175 H 159 H 10/08/19 18:07 POC Glucose 146 H Hospitalist ROS - Review of Systems Gastrointestinal: denies: nausea, vomiting, abdominal pain, diarrhea, constipation, melena, hematochezia, other Genitourinary: denies: dysuria, frequency, incontinence, hematuria, retention, other - Medication Medications: Active Medications Generic Name Dose Route Start Last Admin Trade Name Freq PRN Reason Stop Dose Admin Hydrocodone Bitart/Acetaminophen 1 tab 10/04/19 18:52 10/08/19 08:25 [place] 5/325 PO 1 tab Q4H PRN Administration Moderate Pain (4-6) Hydrocodone Bitart/Acetaminophen 2 tab 10/04/19 18:52 10/09/19 04:29 [place] 5/325 PO 2 tab Q4H PRN Administration Severe Pain (7-10) Aspirin 81 mg 10/05/19 09:00 10/09/19 09:13 Ecotrin PO 81 mg DAILY IFRAH Administration Atorvastatin Calcium 40 mg 10/04/19 21:00 10/08/19 20:38 Lipitor PO 40 mg HS IFRAH Administration Carvedilol 12.5 mg 10/05/19 08:00 10/09/19 09:14 Coreg PO 12.5 mg BID-WM IFRAH Administration Clopidogrel Bisulfate 75 mg 10/05/19 09:00 06/17/20 09:13 Plavix PO 75 mg DAILY IFRAH Administration Enoxaparin Sodium 40 mg 10/05/19 09:00 10/09/19 09:15 Lovenox SC 40 mg 0900 IFRAH Administration Famotidine 20 mg 10/04/19 21:00 10/09/19 10:48 Pepcid PO 20 mg BID IFRAH Administration Gabapentin 300 mg 10/08/19 21:00 10/09/19 09:14 Neurontin PO 300 mg TID FIRAH Administration Ampicillin Sodium 1 gm/ Sodium 100 mls @ 200 mls/hr 10/07/19 08:00 10/09/19 10:48 Chloride IVPB 100 mls 0200,0800,1400,2000 IFRAH Administration Sodium Chloride 1,000 mls @ 100 mls/hr 10/08/19 08:00 10/08/19 20:44 Normal Saline 0.9% IV 1,000 mls .Q10H IFRAH Administration Insulin Human Lispro 0 units 10/04/19 19:06 10/09/19 06:32 Humalog SC 2 unit .MILD SLIDING SCALE PRN Administration Mild Correctional Scale Melatonin 3 mg 10/05/19 18:56 10/09/19 00:17 Melatonin PO 3 mg HSPRN PRN Administration Insomnia Miscellaneous Medication 2 gm 10/05/19 08:00 10/09/19 10:47 Vascepa PO 2 gm BID-WM IFRAH Administration Ondansetron HCl 4 mg 10/04/19 18:52 10/06/19 16:48 Zofran IVP 4 mg Q6H PRN Administration Nausea/Vomiting Polyethylene Glycol 17 gm 10/09/19 09:00 10/09/19 09:15 Miralax PO Not Given DAILY IFRAH Sacubitril/Valsartan 2 tab 10/04/19 21:00 10/09/19 09:13 Entresto 49 Mg-51 Mg Tablet PO 2 tab BID IFRAH Administration Sodium Chloride 10 ml 10/04/19 18:52 10/07/19 09:00 Flush - Normal Saline IVF 10 ml Q12HR PRN Administration Saline Flush Torsemide 10 mg 10/05/19 09:00 10/09/19 09:13 Demadex PO 10 mg DAILY IFRAH Administration Tramadol HCl 100 mg 10/08/19 15:50 10/09/19 09:10 Ultram PO 100 mg Q6H PRN Administration Moderate Pain (4-6) - Exam Heart: negative: RRR, no murmur, no gallops, no rubs, normal peripheral pulses, irregular, diminshed peripheral pulses, murmur present, II/IV, III/IV Respiratory: negative: CTAB, no wheezes, no rales, no ronchi, normal chest expansion, no tachypnea, normal percussion, rales, rhonchi, tachypneic, wheezes Gastrointestinal: negative: soft, non-tender, non-distended, normal bowel sounds , no palpable masses, no hepatomegaly, no splenomegaly, no bruit, no guarding, no rigidity, tender to palpation, distended, diminished bowl sounds, voluntary guarding Extremities - other findings: left below knee amputation Hosp A/P (1) Cellulitis of left lower extremity Code(s): L03.116 - CELLULITIS OF LEFT LOWER LIMB Status: Acute (2) CAD (coronary artery disease) Code(s): I25.10 - ATHSCL HEART DISEASE OF [place] CORONARY ARTERY W/O ANG PCTRS Status: Chronic Qualifiers: (3) Diabetes mellitus Code(s): E11.9 - TYPE 2 DIABETES MELLITUS WITHOUT COMPLICATIONS Status: Chronic (4) HTN (hypertension) Code(s): I10 - ESSENTIAL (PRIMARY) HYPERTENSION Status: Chronic Qualifiers: (5) PVD (peripheral vascular disease) Code(s): I73.9 - PERIPHERAL VASCULAR DISEASE, UNSPECIFIED Status: Chronic (6) Tobacco use Code(s): Z72.0 - TOBACCO USE Status: Chronic - Plan pt's left 5th toe appears gangernous. pt recently had a stenting and angio of left external iliac. pt now comes in with necrotic left 4th and 5th toe. will continue broad spectrum abx. will consult ID. will continue asa/plavix 10/05 will keep pt npo, will change abx per ID and cx. blood sugars stable 10/06 pt to go for surgery in am. spoke with surgeon. will continue abx for now. will get case management for snf. 10/07 pt on eliquis which has been held for his surgery. will resume once ok with surgeon. He is undergoing left bka. 10/08 pt doing well. labs look stable. will ask surgery if ok to start eliquis. Nurse notified that pt had a mucus stool with blood. will get gi to evaluate pt.
[2019-10-09] MEDS: Sodium Chloride 0.9% 1,000 ML IV SCH ×2 (14:50→23:14)
--- NOTE | 2019-10-09 19:35 | PRG ---
DATE OF SERVICE: 10/09/2019 SUBJECTIVE: Tripp Bae is doing well today. His pain is under good control with oral analgesics. OBJECTIVE: VITAL SIGNS: Temperature 97.5 degrees, pulse 65, blood pressure 165/60. He is on Neurontin to minimize phantom pain. This is not a problem for him at this time. Hemoglobin today 10.9, white count 8.8. Basic metabolic profile unremarkable. Dressing is dry from amputation stump. LUNGS: Clear to auscultation. CARDIAC: Regular rate and rhythm. No murmur or gallop. ABDOMEN: Soft. He has I have expressly explained to him he needs to keep these beneath his BKA stump below his knee to facilitate extension and prevent contracture. ASSESSMENT AND PLAN: Status post [id number] amputation. We will plan to remove the dressings tomorrow. Daily wash the wound with soap and water in the shower using a shower chair. Apply antibiotic ointment, Telfa, and a stump water attendant. Transfer to rehab or swing bed Job ID: [id number]
[2019-10-09] MEDS: Atorvastatin Calcium 40 MG TAB PO SCH (20:49)
--- NOTE | 2019-10-10 01:26 | CON ---
DATE OF CONSULTATION: 10/09/2019 REASON FOR CONSULTATION: Hematochezia. HISTORY OF PRESENT ILLNESS: Mr. Tripp Bae is a very pleasant 69-year-old male with peripheral vascular disease, gangrene of the left foot and undergone a below-knee amputation by Dr. Michael Harp yesterday. The patient has a history of coronary artery bypass graft, status post bilateral endarterectomy. He also has had revascularization procedures on both lower extremities. All of this was done in [place]. The patient is apparently hospitalized because of peripheral vascular disease and found to have gangrene. Underwent BKA by Dr. Harp yesterday. The patient apparently was found to have small amount of blood-stained mucus per rectum this morning. The patient has had no active bleeding. The patient tells me he has had hemorrhoids from before and does have mild bleeding off and on. He has had 2 colonoscopies in the past. The last one was done 4 years ago in [place]. He says no other pathology seen except for the hemorrhoids. He has no abdominal pain. No history of perianal discomfort or tenesmus. He tells me every time he has a bulky stool or some times he has very loose stools and has to go to bathroom multiple times with mild bleeding. Denies any tenderness or masses or perianal discomfort . Although, he has had mild hematochezia, which has been somewhat of passing blood-stained mucus per rectum. Blood count did not drop down. CBC on 10/04, hemoglobin 10.7 and today 10.9, hematocrit 33, today 35.5. No relevant history. MEDICAL ILLNESS: 1. Extensive vascular disease with previous bypass surgery, bilateral carotid endarterectomy, and also has had stenting of both lower extremities in the past. 2. Type 2 diabetes mellitus. 3. Chronic back pain. 4. Hypertension. 5. Cellulitis of the left lower extremity. 6. History of atrial flutter with cardioversion. FAMILY HISTORY: Hypertension and diabetes. No family history of any stroke, heart disease, or any cancer. SOCIAL HISTORY: The patient quit smoking 3 years ago. Drinking heavily before , but stopped drinking alcohol. No drug use. ALLERGIES: NONE. MEDICATIONS: Include: 1. Ecotrin. 2. Lipitor. 3. Dulcolax. 4. Tums. 5. Coreg. 6. Plavix. 7. Lovenox. 8. Pepcid. 9. Insulin. 10. He is also on metformin, Zosyn, Zofran, and vancomycin. REVIEW OF SYSTEMS: CONSTITUTIONAL: No history any fever. No history of any chills. No weight loss. HEAD: No chronic headache. No dizziness. EYES: No diplopia or impaired vision. ENT: No ear discharge,hearing loss, nose bleed, etc. LUNGS: No chronic coughing, hemoptysis, dyspnea. CARDIOVASCULAR SYSTEM: No chest pain, no palpitation. No dyspnea, orthopnea, or PND. GI: No abdominal pain, nausea, or vomiting. : No dysuria or hematuria. NEUROPSYCHIATRY: Not known. PHYSICAL EXAMINATION: GENERAL: He is a very pleasant male, appears very comfortable. He is in no distress. He is a good historian. VITAL SIGNS: Afebrile. Pulse is 65. Blood pressure 165/60. HEENT: Conjunctivae are clear. NECK: Supple. CARDIOVASCULAR SYSTEM: Normal heart sounds. LUNGS: Clear to auscultation. ABDOMEN: Soft. No organomegaly. No tenderness. No masses. EXTREMITIES: Reveal no edema. He is status post below-knee amputation. GENITOURINARY: The patient declined to have a rectal exam. LABORATORY DATA: Shows mild anemia, but no drop further after a mild bleeding episode this afternoon. The hemoglobin is 10.7, today 10.9, MCV 88.6, platelet count is 328,000. Chemistry panel: Normal lytes, BUN is 14, creatinine is 0.86 , glucose 168, calcium is 8.3. CLINICAL IMPRESSION: 1. A 69-year-old male, hospitalized with peripheral vascular disease, gangrene of the left foot. He had undergone BKA. The patient had episode of passing small amount of blood-stained mucus. History of hemorrhoids and he does have mild bleeding off and on. The patient had a colonoscopy 4 years ago in [place] and was told to be negative except for hemorrhoids. 2. Peripheral vascular disease, status post below knee amputation of the left leg. 3. Coronary artery disease, status post bypass graft. 4. Bilateral carotid endarterectomy. 5. Diabetes mellitus. 6. Hypertension. RECOMMENDATIONS: 1. Follow up H and H. 2. At the present time, I really do not see any urgent necessity for colonoscopy. I will follow the H and H periodically. He has had a colonoscopy 4 years ago, and I really see no reason for repeat colonoscopy. However, if he starts bleeding actively or his blood counts drop down, then I have to consider colonoscopy. If there is nothing urgent, the colonoscopy can be also done as an outpatient in the near future. Job ID: [id number] MTDD
[2019-10-10] MEDS: AMPicillin 1 GM in Sodium Chloride 0.9% 100 ML IVPB SCH ×2 (01:38→08:59)
[2019-10-10] MEDS: HYDROcodone/Acetaminophen 5/325 mg Tablet PO PRN ×2 (01:43→05:57)
[2019-10-10] MEDS: traMADol HCl 50 MG TAB PO PRN (07:26)
[2019-10-10 08:50] LABS: #Lymphocytes 1.9 thou/uL (1.20-3.40); #Neutrophils 6.2 thou/uL (1.40-6.50); %Basophils 0.3 % (0.0-1.0); %Eosinophils 0.1 % (0.0-10.0); %Lymphocytes 20.7 % (21.0-51.0); %Monocytes 10.7 % (0.0-10.0); %Neutrophils 68.1 % (42.0-75.0); Hemoglobin 10.8 g/dL (14.0-18.0); Mean Corpuscular HGB CONC 30.7 g/dL (32.0-36.0); Mean Corpuscular Hemoglobin 27.7 pg (27.0-31.0); Mean Platelet Volume 9.2 fL (7.4-10.4); Platelet Count 309 thou/uL (130-400); RBC Distribution Width 13.3 % (11.5-14.5); Red Blood Cell (RBC) Count 3.92 mill/uL (4.70-6.10); White Blood Cell (WBC) Count 9.1 thou/uL (4.8-10.8)
[2019-10-10] MEDS: Sacubitril 49 MG/Valsartan 51 MG TABLET PO SCH ×2 (09:03→20:58)
[2019-10-10] MEDS: Icosapent Ethyl 1 GM CAPSULE PO SCH ×2 (09:05→17:45)
[2019-10-10] MEDS: Carvedilol 25 MG TAB PO SCH ×2 (09:06→17:44)
[2019-10-10] MEDS: Aspirin 81 mg Enteric Coated Tablet PO SCH (09:06)
[2019-10-10] MEDS: Gabapentin 300 MG CAP PO SCH ×3 (09:10→20:57)
[2019-10-10] MEDS: Clopidogrel Bisulfate 75 MG TAB PO SCH (09:10)
[2019-10-10] MEDS: Torsemide 20 MG TAB PO SCH (09:10)
[2019-10-10] MEDS: Enoxaparin Sodium 40 MG/0.4 ML SYRINGE SC SCH (09:12)
[2019-10-10] MEDS: Polyethylene Glycol 3350 17 GM Packet PO SCH (09:12)
[2019-10-10] MEDS: fentaNYL Citrate/PF 2,000 MCG in Sodium Chloride 0.9% 60 ML IV PRN (13:03)
[2019-10-10] MEDS ORDERED: Bacitracin 1 PK TOP SCH (17:15)
[2019-10-10] MEDS: Acetaminophen 500 MG TAB PO SCH (17:40)
--- NOTE | 2019-10-10 19:13 | PRG ---
DATE OF SERVICE: Mr. Bae is doing well today, 10/10/2019. Mr. Bae' left BKA stump dressing has been partially removed and a stump whale fisherman applied. His nurse will begin daily washing of the wound with soap and water in the shower using a shower chair and apply antibiotic ointment, Telfa and a stump whale fisherman. The wound looks very good. He will continue wound care. He is ready for transfer any time to swing bed in [place], where they can teach him on transfers and ambulation with a walker and crutches. He should follow up in my office in 2 to 3 weeks for staple removal. He should wear his stump whale fisherman almost all the time. He has an extra one to wear while cleansing the other. At this point, I will see him as needed in the hospital. He should try to keep his left leg extended by placing pillows or blankets beneath his BKA stump below his knee to facilitate extension. Please call if necessary. Job ID: [id number]
[2019-10-10] MEDS: Atorvastatin Calcium 40 MG TAB PO SCH (20:57)
[2019-10-11] MEDS: Acetaminophen 500 MG TAB PO SCH ×6 (00:12→23:46)
[2019-10-11 06:35] LABS: #Lymphocytes 1.9 thou/uL (1.20-3.40); #Neutrophils 5.1 thou/uL (1.40-6.50); %Basophils 0.4 % (0.0-1.0); %Eosinophils 0.5 % (0.0-10.0); %Lymphocytes 23.3 % (21.0-51.0); %Monocytes 12.4 % (0.0-10.0); %Neutrophils 63.4 % (42.0-75.0); Hemoglobin 10.4 g/dL (14.0-18.0); Mean Corpuscular HGB CONC 31.1 g/dL (32.0-36.0); Mean Corpuscular Hemoglobin 27.4 pg (27.0-31.0); Mean Platelet Volume 10.2 fL (7.4-10.4); Platelet Count 315 thou/uL (130-400); RBC Distribution Width 13.5 % (11.5-14.5); Red Blood Cell (RBC) Count 3.81 mill/uL (4.70-6.10)
[2019-10-11 06:59] LABS: Anion Gap 11 mmol/L (10-20); BUN (Urea Nitrogen) 14 mg/dL (8.4-25.7); Calc. Creatinine Clearance 126 mL/min (70-130); Calcium 8.8 mg/dL (7.8-10.44); Carbon Dioxide 31 mmol/L (23-31); Chloride 100 mmol/L (98-107); Estimated GFR-MDRD Greater than 90; Glucose 119 mg/dL (80-115); Potassium 3.3 mmol/L (3.5-5.1); Sodium 139 mmol/L (136-145)
[2019-10-11] MEDS: Clopidogrel Bisulfate 75 MG TAB PO SCH (09:52)
[2019-10-11] MEDS: Gabapentin 300 MG CAP PO SCH ×3 (09:53→20:16)
[2019-10-11] MEDS: Carvedilol 25 MG TAB PO SCH ×2 (09:53→16:22)
[2019-10-11] MEDS: Aspirin 81 mg Enteric Coated Tablet PO SCH (09:54)
[2019-10-11] MEDS: Torsemide 20 MG TAB PO SCH (09:54)
[2019-10-11] MEDS: Sacubitril 49 MG/Valsartan 51 MG TABLET PO SCH ×2 (09:55→20:17)
[2019-10-11] MEDS: Enoxaparin Sodium 40 MG/0.4 ML SYRINGE SC SCH (09:56)
[2019-10-11] MEDS: Polyethylene Glycol 3350 17 GM Packet PO SCH (09:59)
[2019-10-11] MEDS: fentaNYL Citrate/PF 2,000 MCG in Sodium Chloride 0.9% 60 ML IV PRN (10:09)
[2019-10-11] MEDS: Icosapent Ethyl 1 GM CAPSULE PO SCH ×2 (13:31→17:31)
[2019-10-11] MEDS: Bacitracin 1 PK TOP SCH (16:22)
--- NOTE | 2019-10-11 18:17 | PDOC.HOSPP ---
- Subjective Encounter Date: 10/10/19 Encounter Time: 11:45 Subjective: pt up in bed states he is having significant pain to his left leg. - Objective Vital Signs & Weight: Vital Signs (12 hours) Temp Pulse Resp BP Pulse Ox 10/11/19 07:48 98.1 F 84 17 170/71 H 95 Weight Admit Weight 221 lb Weight 221 lb 5.506 oz I&O: 10/10/19 10/11/19 10/12/19 06:59 06:59 06:59 Intake Total 240 1970 Output Total 200 Balance 240 1770 Result Diagrams: 10/11/19 05:33 10/11/19 05:33 Additional Labs: Accuchecks 10/11/19 10/11/19 10/11/19 16:23 11:49 05:20 POC Glucose 122 H 123 H 120 H 10/10/19 20:13 POC Glucose 118 H Hospitalist ROS - Review of Systems Cardiovascular: denies: chest pain, palpitations, orthopnea, paroxysmal noc. dyspnea, edema, light headedness, other Gastrointestinal: denies: nausea, vomiting, abdominal pain, diarrhea, constipation, melena, hematochezia, other Musculoskeletal: reports: leg pain - Medication Medications: Active Medications Generic Name Dose Route Start Last Admin Trade Name Freq PRN Reason Stop Dose Admin Acetaminophen 1,000 mg 10/10/19 18:00 10/11/19 17:29 Tylenol PO Not Given Q6HR IFRAH Aspirin 81 mg 10/05/19 09:00 10/11/19 09:54 Ecotrin PO 81 mg DAILY IFRAH Administration Atorvastatin Calcium 40 mg 10/04/19 21:00 10/10/19 20:57 Lipitor PO 40 mg HS IFRAH Administration Bacitracin 0 pk 10/11/19 09:00 10/11/19 16:22 Bacitracin TOP 2 pk DAILY IFRAH Administration Carvedilol 12.5 mg 10/05/19 08:00 10/11/19 16:22 Coreg PO 12.5 mg BID-WM IFRAH Administration Clopidogrel Bisulfate 75 mg 10/05/19 09:00 10/11/19 09:52 Plavix PO 75 mg DAILY IFRAH Administration Enoxaparin Sodium 40 mg 10/05/19 09:00 10/11/19 09:56 Lovenox SC 40 mg 0900 IFRAH Administration Gabapentin 600 mg 10/10/19 15:00 10/11/19 16:21 Neurontin PO 600 mg TID IFRAH Administration Fentanyl Citrate 2,000 mcg/ 100 mls @ 0 mls/hr 10/10/19 12:01 10/11/19 10:09 Sodium Chloride IV 100 mls INF PRN Administration Pain As Directed Insulin Human Lispro 0 units 10/04/19 19:06 10/09/19 06:32 Humalog SC 2 unit .MILD SLIDING SCALE PRN Administration Mild Correctional Scale Melatonin 3 mg 10/05/19 18:56 10/09/19 00:17 Melatonin PO 3 mg HSPRN PRN Administration Insomnia Miscellaneous Medication 2 gm 10/05/19 08:00 10/11/19 17:31 Vascepa PO 2 gm BID-WM IFRAH Administration Ondansetron HCl 4 mg 10/04/19 18:52 10/06/19 16:48 Zofran IVP 4 mg Q6H PRN Administration Nausea/Vomiting Pantoprazole Sodium 40 mg 10/10/19 09:00 10/11/19 09:52 Protonix PO 40 mg DAILY IFRAH Administration Polyethylene Glycol 17 gm 10/09/19 09:00 10/11/19 09:59 Miralax PO Not Given DAILY IFRAH Sacubitril/Valsartan 2 tab 10/04/19 21:00 10/11/19 09:55 Entresto 49 Mg-51 Mg Tablet PO 2 tab BID IFRAH Administration Sodium Chloride 10 ml 10/04/19 18:52 10/07/19 09:00 Flush - Normal Saline IVF 10 ml Q12HR PRN Administration Saline Flush Torsemide 10 mg 10/05/19 09:00 10/11/19 09:54 Demadex PO 10 mg DAILY IFRAH Administration - Exam Neck: negative: supple, symmetric, no JVD, no thyromegaly, no lymphadenopathy, no carotid bruit, JVD Heart: negative: RRR, no murmur, no gallops, no rubs, normal peripheral pulses, irregular, diminshed peripheral pulses, murmur present, II/IV, III/IV Respiratory: negative: CTAB, no wheezes, no rales, no ronchi, normal chest expansion, no tachypnea, normal percussion, rales, rhonchi, tachypneic, wheezes Gastrointestinal: negative: soft, non-tender, non-distended, normal bowel sounds , no palpable masses, no hepatomegaly, no splenomegaly, no bruit, no guarding, no rigidity, tender to palpation, distended, diminished bowl sounds, voluntary guarding Extremities: 1+ LE edema Hosp A/P (1) Cellulitis of left lower extremity Code(s): L03.116 - CELLULITIS OF LEFT LOWER LIMB Status: Acute (2) CAD (coronary artery disease) Code(s): I25.10 - ATHSCL HEART DISEASE OF [place] CORONARY ARTERY W/O ANG PCTRS Status: Chronic Qualifiers: (3) Diabetes mellitus Code(s): E11.9 - TYPE 2 DIABETES MELLITUS WITHOUT COMPLICATIONS Status: Chronic (4) HTN (hypertension) Code(s): I10 - ESSENTIAL (PRIMARY) HYPERTENSION Status: Chronic Qualifiers: (5) PVD (peripheral vascular disease) Code(s): I73.9 - PERIPHERAL VASCULAR DISEASE, UNSPECIFIED Status: Chronic (6) Tobacco use Code(s): Z72.0 - TOBACCO USE Status: Chronic - Plan pt's left 5th toe appears gangernous. pt recently had a stenting and angio of left external iliac. pt now comes in with necrotic left 4th and 5th toe. will continue broad spectrum abx. will consult ID. will continue asa/plavix 10/05 will keep pt npo, will change abx per ID and cx. blood sugars stable 10/06 pt to go for surgery in am. spoke with surgeon. will continue abx for now. will get case management for snf. 10/07 pt on eliquis which has been held for his surgery. will resume once ok with surgeon. He is undergoing left bka. 10/08 pt doing well. labs look stable. will ask surgery if ok to start eliquis. Nurse notified that pt had a mucus stool with blood. will get gi to evaluate pt. 10/09 eliquis started. anesthesia consult put in by surgeon for scientific writer. will increase his neurontin for phantom pain. pt has a swing bed once ok with surgery for discharge. per gi no intervention. HH stable. pt had recent left stent placed on asa/plavix and eliquis. Abx discontinued. K replaced
--- NOTE | 2019-10-11 18:22 | PDOC.HOSPP ---
- Subjective Encounter Date: 10/11/19 Encounter Time: 10:00 Subjective: pt up in bed no complains - Objective Vital Signs & Weight: Vital Signs (12 hours) Temp Pulse Resp BP Pulse Ox 10/11/19 07:48 98.1 F 84 17 170/71 H 95 Weight Admit Weight 221 lb Weight 221 lb 5.506 oz I&O: 10/10/19 10/11/19 10/12/19 06:59 06:59 06:59 Intake Total 240 1970 Output Total 200 Balance 240 1770 Result Diagrams: 10/11/19 05:33 10/11/19 05:33 Additional Labs: Accuchecks 10/11/19 10/11/19 10/11/19 16:23 11:49 05:20 POC Glucose 122 H 123 H 120 H 10/10/19 20:13 POC Glucose 118 H Hospitalist ROS - Review of Systems Cardiovascular: denies: chest pain, palpitations, orthopnea, paroxysmal noc. dyspnea, edema, light headedness, other Gastrointestinal: denies: nausea, vomiting, abdominal pain, diarrhea, constipation, melena, hematochezia, other Genitourinary: denies: dysuria, frequency, incontinence, hematuria, retention, other - Medication Medications: Active Medications Generic Name Dose Route Start Last Admin Trade Name Freq PRN Reason Stop Dose Admin Acetaminophen 1,000 mg 10/10/19 18:00 10/11/19 17:29 Tylenol PO Not Given Q6HR IFRAH Atorvastatin Calcium 40 mg 10/04/19 21:00 10/10/19 20:57 Lipitor PO 40 mg HS IFRAH Administration Bacitracin 0 pk 10/11/19 09:00 10/11/19 16:22 Bacitracin TOP 2 pk DAILY IFRAH Administration Carvedilol 12.5 mg 10/05/19 08:00 10/11/19 16:22 Coreg PO 12.5 mg BID-WM IFRAH Administration Clopidogrel Bisulfate 75 mg 10/05/19 09:00 10/11/19 09:52 Plavix PO 75 mg DAILY IFRAH Administration Gabapentin 600 mg 10/10/19 15:00 10/11/19 16:21 Neurontin PO 600 mg TID IFRAH Administration Fentanyl Citrate 2,000 mcg/ 100 mls @ 0 mls/hr 10/10/19 12:01 10/11/19 10:09 Sodium Chloride IV 100 mls INF PRN Administration Pain As Directed Insulin Human Lispro 0 units 10/04/19 19:06 10/09/19 06:32 Humalog SC 2 unit .MILD SLIDING SCALE PRN Administration Mild Correctional Scale Melatonin 3 mg 10/05/19 18:56 10/09/19 00:17 Melatonin PO 3 mg HSPRN PRN Administration Insomnia Miscellaneous Medication 2 gm 10/05/19 08:00 10/11/19 17:31 Vascepa PO 2 gm BID-WM IFRAH Administration Ondansetron HCl 4 mg 10/04/19 18:52 10/06/19 16:48 Zofran IVP 4 mg Q6H PRN Administration Nausea/Vomiting Pantoprazole Sodium 40 mg 10/10/19 09:00 10/11/19 09:52 Protonix PO 40 mg DAILY IFRAH Administration Polyethylene Glycol 17 gm 10/09/19 09:00 10/11/19 09:59 Miralax PO Not Given DAILY IFRAH Sacubitril/Valsartan 2 tab 10/04/19 21:00 10/11/19 09:55 Entresto 49 Mg-51 Mg Tablet PO 2 tab BID IFRAH Administration Sodium Chloride 10 ml 10/04/19 18:52 10/07/19 09:00 Flush - Normal Saline IVF 10 ml Q12HR PRN Administration Saline Flush Torsemide 10 mg 10/05/19 09:00 10/11/19 09:54 Demadex PO 10 mg DAILY IFRAH Administration - Exam Neck: negative: supple, symmetric, no JVD, no thyromegaly, no lymphadenopathy, no carotid bruit, JVD Heart: negative: RRR, no murmur, no gallops, no rubs, normal peripheral pulses, irregular, diminshed peripheral pulses, murmur present, II/IV, III/IV Respiratory: negative: CTAB, no wheezes, no rales, no ronchi, normal chest expansion, no tachypnea, normal percussion, rales, rhonchi, tachypneic, wheezes Gastrointestinal: negative: soft, non-tender, non-distended, normal bowel sounds , no palpable masses, no hepatomegaly, no splenomegaly, no bruit, no guarding, no rigidity, tender to palpation, distended, diminished bowl sounds, voluntary guarding Hosp A/P (1) Cellulitis of left lower extremity Code(s): L03.116 - CELLULITIS OF LEFT LOWER LIMB Status: Acute (2) CAD (coronary artery disease) Code(s): I25.10 - ATHSCL HEART DISEASE OF [place] CORONARY ARTERY W/O ANG PCTRS Status: Chronic Qualifiers: (3) Diabetes mellitus Code(s): E11.9 - TYPE 2 DIABETES MELLITUS WITHOUT COMPLICATIONS Status: Chronic (4) HTN (hypertension) Code(s): I10 - ESSENTIAL (PRIMARY) HYPERTENSION Status: Chronic Qualifiers: (5) PVD (peripheral vascular disease) Code(s): I73.9 - PERIPHERAL VASCULAR DISEASE, UNSPECIFIED Status: Chronic (6) Tobacco use Code(s): Z72.0 - TOBACCO USE Status: Chronic - Plan pt's left 5th toe appears gangernous. pt recently had a stenting and angio of left external iliac. pt now comes in with necrotic left 4th and 5th toe. will continue broad spectrum abx. will consult ID. will continue asa/plavix 10/05 will keep pt npo, will change abx per ID and cx. blood sugars stable 10/06 pt to go for surgery in am. spoke with surgeon. will continue abx for now. will get case management for snf. 10/07 pt on eliquis which has been held for his surgery. will resume once ok with surgeon. He is undergoing left bka. 10/08 pt doing well. labs look stable. will ask surgery if ok to start eliquis. Nurse notified that pt had a mucus stool with blood. will get gi to evaluate pt. 10/09 eliquis started. anesthesia consult put in by surgeon for staff technologist. will increase his neurontin for phantom pain. pt has a swing bed once ok with surgery for discharge. per gi no intervention. HH stable. pt had recent left stent placed on asa/plavix and eliquis. Abx discontinued. K replaced 10/10 pt on staff technologist, will discharge once ok with surgeon and off staff technologist. HH is stable.
[2019-10-11] MEDS: Apixaban 5 MG TAB PO SCH (20:15)
[2019-10-11] MEDS: Atorvastatin Calcium 40 MG TAB PO SCH (20:15)
[2019-10-12] MEDS: Acetaminophen 500 MG TAB PO SCH (06:58)
[2019-10-12] MEDS: Gabapentin 300 MG CAP PO SCH ×3 (08:50→20:56)
[2019-10-12] MEDS: Torsemide 20 MG TAB PO SCH (08:51)
[2019-10-12] MEDS: Sacubitril 49 MG/Valsartan 51 MG TABLET PO SCH ×2 (08:51→20:55)
[2019-10-12] MEDS: Clopidogrel Bisulfate 75 MG TAB PO SCH (08:52)
[2019-10-12] MEDS: Apixaban 5 MG TAB PO SCH ×2 (08:52→20:56)
[2019-10-12] MEDS: Carvedilol 25 MG TAB PO SCH ×2 (08:52→17:30)
[2019-10-12] MEDS: Aspirin 81 mg Enteric Coated Tablet PO SCH (08:52)
[2019-10-12] MEDS ORDERED: traMADol HCl 50 MG TAB PO PRN (08:54)
[2019-10-12] MEDS ORDERED: HYDROcodone/Acetaminophen 10/325 mg Tablet PO PRN (08:55)
[2019-10-12] MEDS ORDERED: Fentanyl 100 MCG/2 ML VIAL SLOW IVP PRN (08:56)
[2019-10-12] MEDS: Polyethylene Glycol 3350 17 GM Packet PO SCH (08:56)
[2019-10-12] MEDS: traMADol HCl 50 MG TAB PO PRN ×2 (10:27→18:13)
--- NOTE | 2019-10-12 11:01 | EKG ---
Test Reason : Blood Pressure : / mmHG Vent. Rate : 090 BPM Atrial Rate : 090 BPM P-R Int : 138 ms QRS Dur : 114 ms QT Int : 378 ms P-R-T Axes : 043 061 182 degrees QTc Int : 462 ms Normal sinus rhythm Septal infarct , age undetermined Abnormal ECG Confirmed by JESSICA RICE DO [id number]), web editor SANA KWONG ([id number]) on 10/12/2019 11:00:54 AM Referred By: Confirmed By:JESSICA RICE DO
[2019-10-12] MEDS: Icosapent Ethyl 1 GM CAPSULE PO SCH ×2 (12:33→17:29)
[2019-10-12] MEDS: HYDROcodone/Acetaminophen 10/325 mg Tablet PO PRN ×2 (14:10→20:54)
[2019-10-12] MEDS: Bacitracin 1 PK TOP SCH (17:56)
--- NOTE | 2019-10-12 20:18 | PRG ---
DATE OF SERVICE: 10/12/2019 SUBJECTIVE: This 69-year-old male with severe peripheral vascular disease, coronary artery disease, diabetes mellitus type 2 and hypertension, presented to the hospital on October 04, 2019, with worsening left foot pain. His workup was consistent with infected diabetic foot ulcer with gangrene. He underwent left below-knee amputation on October 08, 2019. His pain was controlled with OFFICE ADMINISTRATIVE ASSISTANT. OFFICE ADMINISTRATIVE ASSISTANT was discontinued today. He denies any chest pain, shortness of breath, palpitations, nausea or vomiting. REVIEW OF SYSTEMS: All other review of systems were reviewed and were found negative. CURRENT MEDICATIONS: Reviewed. OBJECTIVE: VITAL SIGNS: Temperature 97.6, pulse rate of 94, respirations 18, blood pressure 133/76, and O2 saturation of 96% on room air. GENERAL: This is a 69-year-old male, in no apparent distress. LUNGS: Clear to auscultation bilaterally. HEART: S1 and S2 present, regular. ABDOMEN: Soft. Bowel sounds present. EXTREMITIES: The patient is status post left below-knee amputation, dressing noted. LABORATORY FINDINGS: There are no new labs today. Potassium yesterday was 3.3 with creatinine of 0.81. WBC 8.0 with hemoglobin of 10.4 and platelet 315. Lactic acid on admission was 2.3. CRP 9.6. Foot x-ray on admission was negative for osteomyelitis. Chest x-ray by my review on admission was negative. IMPRESSION: 1. Sepsis secondary to cellulitis with diabetic foot infection with gangrene, status post left below-knee amputation, present on admission. 2. Lactic acidosis on admission secondary to above. 3. Elevated inflammatory markers. 4. Hypokalemia. 5. Coronary artery disease. 6. Severe peripheral vascular disease. 7. History of femoral-popliteal and iliac stenting. 8. Diabetes mellitus, type 2. 9. History of tobacco abuse. 10. Hypertension. 11. Chronic anemia, suspected due to nutritional deficiency. 12. Obesity with a BMI of 30.0. 13. History of chronic systolic/diastolic heart failure. Last ejection fraction was 50% to 55%. 14. Chronic anticoagulation with Eliquis and history of cerebrovascular accident. 15. History of atrial flutter, status post ablation. 16. Obstructive sleep apnea. PLAN: We will continue supportive care. Anticoagulation has been restarted. Continue aspirin with statins. Continue beta-blockers. We will continue Entresto along with torsemide. We will add stool softeners. Recheck labs in a.m. DISCHARGE DISPOSITION: detention facility once accepted. Job ID: [id number]
[2019-10-12] MEDS: Senokot S 8.6-50 MG TAB PO SCH (20:56)
[2019-10-12] MEDS: Atorvastatin Calcium 40 MG TAB PO SCH (20:56)
[2019-10-13] MEDS: HYDROcodone/Acetaminophen 10/325 mg Tablet PO PRN ×3 (01:09→09:54)
[2019-10-13 05:38] LABS: #Lymphocytes 1.9 thou/uL (1.20-3.40); #Neutrophils 4.9 thou/uL (1.40-6.50); %Basophils 0.5 % (0.0-1.0); %Eosinophils 0.3 % (0.0-10.0); %Lymphocytes 24.6 % (21.0-51.0); %Monocytes 12.2 % (0.0-10.0); %Neutrophils 62.3 % (42.0-75.0); Hemoglobin 10.2 g/dL (14.0-18.0); Mean Corpuscular HGB CONC 32.2 g/dL (32.0-36.0); Mean Corpuscular Hemoglobin 28.2 pg (27.0-31.0); Mean Corpuscular Volume 87.7 fL (78.0-98.0); Mean Platelet Volume 9.9 fL (7.4-10.4); Platelet Count 283 thou/uL (130-400); RBC Distribution Width 13.3 % (11.5-14.5); Red Blood Cell (RBC) Count 3.61 mill/uL (4.70-6.10); White Blood Cell (WBC) Count 7.8 thou/uL (4.8-10.8)
[2019-10-13 06:23] LABS: Anion Gap 11 mmol/L (10-20); BUN (Urea Nitrogen) 16 mg/dL (8.4-25.7); Calc. Creatinine Clearance 121 mL/min (70-130); Calcium 8.6 mg/dL (7.8-10.44); Carbon Dioxide 29 mmol/L (23-31); Chloride 102 mmol/L (98-107); Estimated GFR-MDRD Greater than 90; Glucose 116 mg/dL (80-115); Potassium 3.2 mmol/L (3.5-5.1); Sodium 139 mmol/L (136-145)
[2019-10-13 07:26] VITALS: BP 140/55; TEMP 98
[2019-10-13] MEDS ORDERED: Potassium Chloride 20 MEQ TAB PO SCH (08:00)
[2019-10-13] MEDS: Carvedilol 25 MG TAB PO SCH (08:22)
[2019-10-13] MEDS: Gabapentin 300 MG CAP PO SCH ×2 (08:23→15:46)
[2019-10-13] MEDS: Apixaban 5 MG TAB PO SCH (08:23)
[2019-10-13] MEDS: Clopidogrel Bisulfate 75 MG TAB PO SCH (08:23)
[2019-10-13] MEDS: Aspirin 81 mg Enteric Coated Tablet PO SCH (08:23)
[2019-10-13] MEDS: Torsemide 20 MG TAB PO SCH (08:23)
[2019-10-13] MEDS: Icosapent Ethyl 1 GM CAPSULE PO SCH (08:24)
[2019-10-13] MEDS: Senokot S 8.6-50 MG TAB PO SCH (09:20)
[2019-10-13] MEDS: Polyethylene Glycol 3350 17 GM Packet PO SCH (09:20)
[2019-10-13] MEDS: Sacubitril 49 MG/Valsartan 51 MG TABLET PO SCH (09:54)
[2019-10-13] MEDS: Bacitracin 1 PK TOP SCH (09:55)
--- NOTE | 2019-10-13 10:20 | PDOC.HOSPP ---
- Subjective Encounter Date: 10/13/19 Encounter Time: 08:00 Subjective: Patient seen and examined for Sepsis. Pain controlled. Off RELASTER since yesterday. No new complaints. No overnight events - Objective Vital Signs & Weight: Vital Signs (12 hours) Temp Pulse Resp BP Pulse Ox 10/13/19 07:25 98.0 F 70 18 140/55 L 95 Weight Admit Weight 221 lb Weight 221 lb 5.506 oz I&O: 10/12/19 10/13/19 10/14/19 06:59 06:59 06:59 Output Total 900 Balance -900 Result Diagrams: 10/13/19 05:15 10/13/19 05:15 Additional Labs: Accuchecks 10/13/19 10/12/19 10/12/19 04:30 19:50 16:56 POC Glucose 151 H 147 H 115 H 10/12/19 11:19 POC Glucose 121 H Microbiology 10/04/19 21:00 Foot - Wound Bacterial Culture - Final Enterococcus faecalis 10/04/19 15:37 Venous blood - Right Hand Blood Culture - Final NO GROWTH IN 5 DAYS 10/04/19 15:37 Venous blood - Right Arm Blood Culture - Final NO GROWTH IN 5 DAYS Hospitalist ROS - Review of Systems Respiratory: denies: cough, dry, shortness of breath, hemoptysis, SOB with excertion, pleuritic pain, sputum, wheezing, other Cardiovascular: denies: chest pain, palpitations, orthopnea, paroxysmal noc. dyspnea, edema, light headedness, other - Medication Medications: Active Medications Generic Name Dose Route Start Last Admin Trade Name Freq PRN Reason Stop Dose Admin Hydrocodone Bitart/Acetaminophen 2 tab 10/12/19 08:55 10/13/19 09:54 [place] 10/325 PO 2 tab Q4H PRN Administration Moderate to Severe Pain (5-10) Apixaban 5 mg 10/11/19 21:00 10/13/19 08:23 Eliquis PO 5 mg BID IFRAH Administration Aspirin 81 mg 10/12/19 09:00 10/13/19 08:23 Ecotrin PO 81 mg DAILY IFRAH Administration Atorvastatin Calcium 40 mg 10/04/19 21:00 10/12/19 20:56 Lipitor PO 40 mg HS IFRAH Administration Bacitracin 0 pk 10/11/19 09:00 06/21/20 09:55 Bacitracin TOP 1 pk DAILY IFRAH Administration Carvedilol 12.5 mg 10/05/19 08:00 10/13/19 08:22 Coreg PO 12.5 mg BID-WM IFRAH Administration Clopidogrel Bisulfate 75 mg 10/05/19 09:00 10/13/19 08:23 Plavix PO 75 mg DAILY IFRAH Administration Gabapentin 600 mg 10/10/19 15:00 10/13/19 08:23 Neurontin PO 600 mg TID IFRAH Administration Insulin Human Lispro 0 units 10/04/19 19:06 10/09/19 06:32 Humalog SC 2 unit .MILD SLIDING SCALE PRN Administration Mild Correctional Scale Melatonin 3 mg 10/05/19 18:56 10/09/19 00:17 Melatonin PO 3 mg HSPRN PRN Administration Insomnia Miscellaneous Medication 2 gm 10/05/19 08:00 10/13/19 08:24 Vascepa PO 2 gm BID-WM IFRAH Administration Ondansetron HCl 4 mg 10/04/19 18:52 10/06/19 16:48 Zofran IVP 4 mg Q6H PRN Administration Nausea/Vomiting Pantoprazole Sodium 40 mg 10/10/19 09:00 10/13/19 08:23 Protonix PO 40 mg DAILY IFRAH Administration Polyethylene Glycol 17 gm 10/09/19 09:00 10/13/19 09:20 Miralax PO Not Given DAILY IFRAH Potassium Chloride 20 meq 10/13/19 08:00 10/13/19 08:23 K-Dur PO 10/14/19 08:01 20 meq BID-WM IFRAH Administration Sacubitril/Valsartan 2 tab 10/04/19 21:00 10/13/19 09:54 Entresto 49 Mg-51 Mg Tablet PO 2 tab BID IFRAH Administration Senna/Docusate Sodium 2 tab 10/12/19 21:00 10/13/19 09:20 Senokot S PO Not Given BID IFRAH Sodium Chloride 10 ml 10/04/19 18:52 10/07/19 09:00 Flush - Normal Saline IVF 10 ml Q12HR PRN Administration Saline Flush Torsemide 10 mg 10/05/19 09:00 10/13/19 08:23 Demadex PO 10 mg DAILY IFRAH Administration Tramadol HCl 100 mg 10/12/19 08:54 06/20/20 18:13 Ultram PO 100 mg Q6H PRN Administration Moderate to Severe Pain (5-10) - Exam General Appearance: NAD Neck: supple, no JVD Heart: RRR, no gallops Respiratory: no wheezes, no rales Gastrointestinal: non-tender, non-distended Extremities: no cyanosis Extremities - other findings: LLE dressing + Neurological: no new deficit Psychiatric: normal affect, A&O x 3 Hosp A/P - Plan 1. Sepsis secondary to cellulitis with diabetic foot infection with gangrene, status post left below-knee amputation, present on admission. 2. Lactic acidosis on admission secondary to above. 3. Elevated inflammatory markers. 4. Hypokalemia. 5. Coronary artery disease. 6. Severe peripheral vascular disease. 7. History of femoral-popliteal and iliac stenting. 8. Diabetes mellitus, type 2. 9. History of tobacco abuse. 10. Hypertension. 11. Chronic anemia, suspected due to nutritional deficiency. 12. Obesity with a BMI of 30.0. 13. History of chronic systolic/diastolic heart failure. Last ejection fraction was 50% to 55%. 14. Chronic anticoagulation with Eliquis and history of cerebrovascular accident. 15. History of atrial flutter, status post ablation. 16. Obstructive sleep apnea. PLAN: Replace Potassium Cont current meds as above Cont above meds DC when accepted at SNF
--- NOTE | 2019-10-13 12:54 | DIS ---
DATE OF ADMISSION: 10/04/2019 DATE OF DISCHARGE: 10/13/2019 DISCHARGE DISPOSITION: Nursing Home Facility. FOLLOWUP: Follow up with the primary care physician and General Surgery as scheduled. DISCHARGE MEDICATIONS: Gabapentin was increased to 600 mg 3 times daily. All other home medications were left unchanged. INPATIENT PROCEDURES: On 08 October 2019, patient underwent left below-knee amputation. DIAGNOSTIC TESTS: 1. Chest x-ray on admission was negative for acute findings. 2. Left foot x-ray was negative for osteomyelitis or fractures. PATHOLOGIC DIAGNOSIS: Pathologic diagnosis of left leg showed ischemic gangrene with atherosclerosis of the blood vessels with 98% lumen occlusion. BRIEF HOSPITAL COURSE: The patient is a 69-year-old male with severe peripheral vascular disease, coronary artery disease and femoral-popliteal and iliac stenting in the past, presented to the hospital with worsening left foot pain. His workup was consistent with infected diabetic foot ulcer with gangrene. He was started on empiric antibiotics per Infectious Disease recommendation. He was also seen by General Surgery, Dr. Harp. He eventually underwent left below-knee amputation. Postoperatively, his pain was managed with DEOILING MACHINE OPERATOR. Yesterday, DEOILING MACHINE OPERATOR was discontinued. Anticoagulation and antiplatelet agents have been restarted. He appears stable for discharge to fdc facility. FINAL DIAGNOSES: 1. Sepsis secondary to cellulitis with diabetic foot infection with gangrene, status post left below-knee amputation. 2. Lactic acidosis, resolved. 3. Elevated inflammatory markers. 4. Hypokalemia, replaced. 5. Coronary artery disease. 6. Severe peripheral vascular disease. 7. History of femoral-popliteal and iliac stenting. 8. Diabetes mellitus type 2. 9. History of tobacco abuse. 10. Hypertension. 11. Chronic anemia probably due to nutritional deficiency. 12. Obesity with a body mass index of 30. 13. Chronic systolic and diastolic heart failure with a recent ejection fraction of 50% to 55%. 14. History of atrial flutter, status post ablation. 15. Obstructive sleep apnea. 16. Chronic anticoagulation with Eliquis. 17. History of cerebrovascular accident. PLAN: 1. Repeat basic metabolic profile and CBC are recommended in next 2-3 days. 2. Primary care physician advised to follow. Time coordinating the discharge of this patient was 36 minutes. Job ID: [id number]
== END 2019-10-13 15:29 | disposition swing bed (61) | DRG 239 ==
LOC: ERS 15:07 → T4-B 17:23
PROVIDERS: ADMIT Internal Medicine; ATTEND Internal Medicine
PROC: 0Y6J0Z3 Detachment at Left Lower Leg, Low, Open Approach (ICD-10-PCS; principal; 2019-10-08)
DX: E11.52 Type 2 diabetes mellitus with diabetic peripheral angiopathy with gangrene (principal); A41.9 Sepsis, unspecified organism; I70.262 Atherosclerosis of native arteries of extremities with gangrene, left leg; L03.116 Cellulitis of left lower limb; E87.2 Acidosis; I50.42 Chronic combined systolic (congestive) and diastolic (congestive) heart failure; E11.621 Type 2 diabetes mellitus with foot ulcer; L97.529 Non-pressure chronic ulcer of other part of left foot with unspecified severity; I25.10 Atherosclerotic heart disease of native coronary artery without angina pectoris; E78.5 Hyperlipidemia, unspecified; I11.0 Hypertensive heart disease with heart failure; G89.29 Other chronic pain; M54.9 Dorsalgia, unspecified; E78.00 Pure hypercholesterolemia, unspecified; I48.91 Unspecified atrial fibrillation; G47.33 Obstructive sleep apnea (adult) (pediatric); D53.9 Nutritional anemia, unspecified; E87.6 Hypokalemia; Z95.1 Presence of aortocoronary bypass graft; I25.2 Old myocardial infarction; Z87.891 Personal history of nicotine dependence; Z79.899 Other long term (current) drug therapy; Z79.01 Long term (current) use of anticoagulants; Z79.02 Long term (current) use of antithrombotics/antiplatelets; Z79.82 Long term (current) use of aspirin; Z79.84 Long term (current) use of oral hypoglycemic drugs; Z91.14 Patient's other noncompliance with medication regimen; Z86.73 Personal history of transient ischemic attack (TIA), and cerebral infarction without residual deficits
CPT/HCPCS: 36415; 36416; 36600; 71045; 80048; 80053; 80202; 82274; 82550; 83605; 83735; 85025; 85610; 85652; 85730; 86140; 86850; 86900; 86901; 87040; 87070; 87077; 87186; 87205; 88307; 93005; 96365; 96367; 96375; J0171; J0290; J0670; J0692; J1100; J1650; J2001; J2250; J2405; J2543; J2704; J3010; J3370; J3490; J7050; L8440

== ENCOUNTER 2020-01-30 07:33 | Outpatient (CLI) | payer MEDICARE, OTHER ==
[2020-01-30 11:52] LABS: #Basophils 0.1 thou/uL (0.0-0.2); #Lymphocytes 1.9 thou/uL (1.20-3.40); #Monocytes 0.7 thou/uL (0.11-0.59); #Neutrophils 3.8 thou/uL (1.40-6.50); %Basophils 0.9 % (0.0-1.0); %Eosinophils 0.5 % (0.0-10.0); %Lymphocytes 29.1 % (21.0-51.0); %Neutrophils 58.5 % (42.0-75.0); Hemoglobin 15.5 g/dL (14.0-18.0); Large Platelets SLIGHT; MDiff Complete? YES; Mean Corpuscular HGB CONC 31.3 g/dL (32.0-36.0); Mean Corpuscular Hemoglobin 28.2 pg (27.0-31.0); Mean Corpuscular Volume 90.1 fL (78.0-98.0); Mean Platelet Volume 12.3 fL (7.4-10.4); Platelet Count 183 thou/uL (130-400); Platelet Morphology Comment Appears Adequate; RBC Distribution Width 15.8 % (11.5-14.5); RBC Morphology Normal; Red Blood Cell (RBC) Count 5.48 mill/uL (4.70-6.10); White Blood Cell (WBC) Count 6.6 thou/uL (4.8-10.8)
[2020-01-30 12:18] LABS: Anion Gap 20 mmol/L (10-20); BUN (Urea Nitrogen) 24 mg/dL (8.4-25.7); Calc. Creatinine Clearance 0 mL/min (70-130); Calcium 9.6 mg/dL (7.8-10.44); Carbon Dioxide 21 mmol/L (23-31); Chloride 102 mmol/L (98-107); Estimated GFR-MDRD 46; Glucose 210 mg/dL (80-115); Sodium 138 mmol/L (136-145)
[2020-01-30 17:34] LABS: SARS-CoV-2 MS2 Positive; SARS-CoV-2 N Gene Negative; SARS-CoV-2 S Gene Negative; SARS-CoV-2 by NAA Not Detected (NotDetected); SARS-CoV-2 orf1ab Negative
== END 2020-01-30 07:34 | disposition home or self-care (01) ==
LOC: LABBT 07:33
PROVIDERS: ATTEND Thoracic Surgery (Cardiothoracic Vascular Surgery)
DX: Z01.812 Encounter for preprocedural laboratory examination (principal); Z20.828 Contact with and (suspected) exposure to other viral communicable diseases; L97.919 Non-pressure chronic ulcer of unspecified part of right lower leg with unspecified severity
CPT/HCPCS: 80048; 85025; U0003; 87635

== ENCOUNTER 2020-02-03 05:41 | Day surgery (SDC) | payer MEDICARE ==
[2020-01-31 12:41] VITALS: BMI 30.9
[2020-02-03] MEDS ORDERED: Lidocaine 1% (PF) 30 ML VIAL ONE (06:35)
[2020-02-03] MEDS ORDERED: Midazolam HCl 2 mg/2 ml Vial ONE (07:08)
[2020-02-03] MEDS ORDERED: Fentanyl 100 MCG/2 ML VIAL ONE ×2 (07:08→07:32)
[2020-02-03] MEDS ORDERED: Heparin 10,000 UNITS/ 10 ML VIAL ONE (07:53)
[2020-02-03] MEDS ORDERED: Morphine 2 MG/ML VIAL ONE ×2 (07:54→08:09)
[2020-02-03] MEDS ORDERED: Nitroglycerin 4.9 GM Bottle ONE (08:01)
[2020-02-03] MEDS ORDERED: Protamine Sulfate 50 MG/5 ML VIAL ONE (08:01)
[2020-02-03] MEDS ORDERED: Metoprolol Tartrate 5 MG/5 ML VIAL ONE (08:07)
[2020-02-03] MEDS ORDERED: Morphine 4 MG/ML VIAL ONE (08:42)
[2020-02-03] MEDS ORDERED: traMADol HCl 50 MG TAB ONE (08:55)
[2020-02-03] MEDS ORDERED: Iopamidol 370 76% 50 ML VIAL FS ONE (09:00)
--- NOTE | 2020-02-03 09:40 | OP ---
DATE OF PROCEDURE: 02/03/2020 PREOPERATIVE DIAGNOSIS: Peripheral vascular disease with rest pain of the right leg. POSTOPERATIVE DIAGNOSIS: Peripheral vascular disease with rest pain of the right leg. PROCEDURES PERFORMED: 1. Ultrasound-guided left femoral artery access. 2. Left external iliac artery angiogram. 3. Aortogram with bilateral pelvic runoff. 4. Right external iliac artery angiogram. 5. Right superficial femoral artery angiogram. 6. Right popliteal artery angiogram. 7. Right popliteal artery percutaneous transluminal angioplasty with a 5 x 40 Lutonix balloon taken to 6 mmHg for 3 minutes. ANESTHESIA: 1% lidocaine for local/1 mg Versed/125 mcg fentanyl/6 mg morphine for sedation and pain control. Total heparin, 5000 units. Protamine was 25 mg at completion. FLUORO TIME: 10.7 minutes. TOTAL CONTRAST: 30 mL. DESCRIPTION OF PROCEDURE: After consent was obtained, the patient was brought to the cath lab manager, placed in supine position on cath lab manager table. Appropriate monitoring was placed. IV sedation was begun. The left groin was anesthetized under the guidance of ultrasound. Ultrasound guidance was used to access the femoral artery and a stiff micropuncture wire placed. A stiff micropuncture dilator followed by 5-[place] catheter was then placed. Hand-injected arteriogram was performed, confirming patency of the iliac system on the left. An 0.018 [place] Plus guidewire was placed into the abdominal aorta. The 5-[place] dilator followed by sheath was then placed. A RIM catheter was used to access the aorta. Aortogram was performed, showing calcified iliac system but patent stents in both iliac arteries. The RIM catheter and an angled Glidewire were used to cross the iliac bifurcation. The RIM catheter was passed down into the external iliac artery. Multiple views with hand-injected arteriogram performed marching down the leg. The femoral and external iliac systems were patent down into the graft. The graft was patent down to the popliteal artery with no disease. The profunda was patent with a chronically occluded superficial femoral artery. The popliteal artery showed an area of critical stenosis just distal to the anastomosis. We were able to cross this utilizing an angled [place] catheter and angled Glidewire. The patient was given 5000 units of heparin. The glidewire was then exchanged for an Amplatz wire. A 6- [place] destination sheath was used to cross the bifurcation and position the tip in the bypass graft. A 5 x 20 balloon was selected. This was used and inflated over the area of critical stenosis and held for 3 minutes. Balloon was deflated. Followup angiogram through the sheath with its tip in the SFA showed an excellent result. 25 mg of protamine was administered. Sheaths and guidewires were removed and manual pressure held for hemostasis. The patient tolerated the procedure well and was transferred to recovery area in stable condition. The patient has only collateral flow down into a peroneal and anterior tibial artery distally. There are no further interventions that can be done. If he continues to have pain, he will require another amputation. Job ID: [id number] [facility]
== END 2020-02-03 14:15 | disposition home or self-care (01) ==
LOC: SDC 05:41
PROVIDERS: ATTEND Thoracic Surgery (Cardiothoracic Vascular Surgery)
PROC: 047M3ZZ Dilation of Right Popliteal Artery, Percutaneous Approach (ICD-10-PCS; principal; 2020-02-03)
DX: E11.51 Type 2 diabetes mellitus with diabetic peripheral angiopathy without gangrene (principal); I70.221 Atherosclerosis of native arteries of extremities with rest pain, right leg; E11.621 Type 2 diabetes mellitus with foot ulcer; L97.519 Non-pressure chronic ulcer of other part of right foot with unspecified severity; I70.239 Atherosclerosis of native arteries of right leg with ulceration of unspecified site; I25.10 Atherosclerotic heart disease of native coronary artery without angina pectoris; I10 Essential (primary) hypertension; I48.0 Paroxysmal atrial fibrillation; E78.2 Mixed hyperlipidemia; Z87.891 Personal history of nicotine dependence; Z79.01 Long term (current) use of anticoagulants; Z79.02 Long term (current) use of antithrombotics/antiplatelets; Z79.2 Long term (current) use of antibiotics; Z79.84 Long term (current) use of oral hypoglycemic drugs; Z79.899 Other long term (current) drug therapy; Z95.820 Peripheral vascular angioplasty status with implants and grafts; Z89.512 Acquired absence of left leg below knee
CPT/HCPCS: 37224; 76942; 85347; C1725; J2270; 99152; 99153; J1644; J2001; J2250; J2720; J3010; Q9967

== ENCOUNTER 2020-12-29 11:58 | Inpatient (IN) | payer MEDICARE ==
[2020-12-29 13:09] LABS: Hemoglobin 14.1 g/dL (14.0-18.0); Mean Corpuscular HGB CONC 32.1 g/dL (32.0-36.0); Mean Corpuscular Hemoglobin 29.7 pg (27.0-31.0); Mean Corpuscular Volume 92.5 fL (78.0-98.0); RBC Distribution Width 13.9 % (11.5-14.5); Red Blood Cell (RBC) Count 4.76 mill/uL (4.70-6.10); White Blood Cell (WBC) Count 6.9 thou/uL (4.8-10.8)
[2020-12-29 13:10] LABS: #Lymphocytes 0.8 thou/uL (1.20-3.40); #Monocytes 0.3 thou/uL (0.11-0.59); #Neutrophils 5.7 thou/uL (1.40-6.50); %Basophils 0.3 % (0.0-1.0); %Eosinophils 0.3 % (0.0-10.0); %Lymphocytes 11.2 % (21.0-51.0); %Monocytes 4.4 % (0.0-10.0); %Neutrophils 83.8 % (42.0-75.0)
[2020-12-29 13:30] LABS: ALT (SGPT) 2102 U/L (8-55); Albumin 3.8 g/dL (3.4-4.8); Alkaline Phosphatase 89 U/L (40-110); Anion Gap 25 mmol/L (10-20); BUN (Urea Nitrogen) 52 mg/dL (8.4-25.7); Bilirubin, Total 2.6 mg/dL (0.2-1.2); CK (CPK) 3458 U/L (30-200); Calc. Creatinine Clearance 0 mL/min (70-130); Calcium 8.7 mg/dL (7.8-10.44); Carbon Dioxide 15 mmol/L (23-31); Chloride 105 mmol/L (98-107); Globulin 3.6 g/dL (2.4-3.5); Glucose 170 mg/dL (80-115); Potassium 5.7 mmol/L (3.5-5.1); Protein, Total 7.4 g/dL (5.8-8.1); Sodium 139 mmol/L (136-145)
[2020-12-29 13:30] LABS: MDiff Complete? YES; Mean Platelet Volume 12.5 fL (7.4-10.4); Platelet Count 88 thou/uL (130-400)
[2020-12-29 13:31] LABS: Large Platelets SLIGHT; Platelet Morphology Comment Appears Decreased; RBC Morphology Normal
[2020-12-29 13:35] LABS: AST (SGOT) Greater than 3500 U/L (5-34)
[2020-12-29 14:05] LABS: CKMB 64.2 ng/mL (0-6.6)
[2020-12-29] MEDS ORDERED: Cefepime 2 GM VIAL ONE (14:29)
[2020-12-29] MEDS ORDERED: Aspirin Chewable 81 MG TAB ONE (15:16)
[2020-12-29 16:16] LABS: Lactic Acid 4.8 mmol/L (0.5-2.2)
[2020-12-29 16:49] LABS: SARS-CoV-2 NAA Rapid Test DETECTED (NotDetected)
[2020-12-29] MEDS ORDERED: Norepinephrine 8 MG/0.9% NS 250 ML ONE ×2 (16:52→16:57)
[2020-12-29 17:34] LABS: Troponin I 35.136 ng/mL (< 0.028)
[2020-12-29 19:15] LABS: Bacteria/HPF 1+ HPF (None Seen); Bilirubin Negative (Negative); Blood, Urine 3+ (Negative); Clarity Extra Turbid (Clear); Glucose, Urine (Dipstick) 50 mg/dL (Negative); Ketone, Urine 10 mg/dL (Negative); Leukocyte Negative Leu/uL (Negative); Nitrite Negative (Negative); Protein, Urine (Dipstick) 100 mg/dL (Neg-Trace); RBC/HPF 0-3 HPF (0-3); Specific Gravity, Urine 1.022 (1.002-1.036); Squamous Epithelial 0-3 HPF (0-3); Urobilinogen Normal mg/dL (Less than 2); WBC/HPF 0-3 HPF (0-3)
[2020-12-29 20:48] LABS: Troponin I 44.539 ng/mL (< 0.028)
[2020-12-29] MEDS ORDERED: Norepinephrine 8 MG/0.9% NS 250 ML IVPB SCH (20:51)
[2020-12-29] MEDS ORDERED: Levofloxacin 750 mg/D5W 500 MG in Premix Bag 1 BAG IVPB SCH (20:51)
[2020-12-29] MEDS ORDERED: Ondansetron ODT 4 MG TAB PO PRN (20:51)
[2020-12-29] MEDS ORDERED: Sodium Chloride 0.9% 1,000 ML IV SCH (20:51)
[2020-12-29] MEDS ORDERED: Ondansetron PF 4 MG/2 ML Vial IVP PRN (20:51)
[2020-12-29] MEDS ORDERED: Dextrose 5% in Water 1,000 ML IV PRN (20:51)
[2020-12-29] MEDS ORDERED: Dextrose 50% Abboject 50 ML SYRINGE SLOW IVP PRN (20:51)
[2020-12-29] MEDS ORDERED: Cefepime 2 GM in Sodium Chloride 0.9% 100 ML IVPB SCH (21:00)
[2020-12-29] MEDS ORDERED: Clopidogrel Bisulfate 75 MG TAB ONE (21:25)
[2020-12-29] MEDS ORDERED: Dexamethasone 10 MG/ML VIAL ONE (21:31)
[2020-12-29] MEDS: Dexamethasone 10 MG/ML VIAL SLOW IVP SCH (21:42)
[2020-12-29] MEDS: Atorvastatin Calcium 40 MG TAB PO SCH (21:42)
[2020-12-29] MEDS ORDERED: Enoxaparin Sodium 100 MG/ML SYRINGE SC SCH ×2 (22:00→22:15)
[2020-12-29] MEDS ORDERED: Enoxaparin Sodium 100 MG/ML SYRINGE ONE (22:15)
[2020-12-29 22:36] LABS: Anion Gap 17 mmol/L (10-20); BUN (Urea Nitrogen) 53 mg/dL (8.4-25.7); Calc. Creatinine Clearance 0 mL/min (70-130); Calcium 7.7 mg/dL (7.8-10.44); Carbon Dioxide 20 mmol/L (23-31); Chloride 105 mmol/L (98-107); Glucose 93 mg/dL (80-115); Potassium 4.6 mmol/L (3.5-5.1); Sodium 137 mmol/L (136-145)
[2020-12-29 23:38] LABS: Actual Bicarbonate (HCO3a) 17.7 mEq/L (22-28); Analyzer IN Cardio ER; Base Excess (BEa) -8.9 mEq/L (-2.0 to +3.0); CO2 Tension 40.4 mmHg (35.0-45.0); Calcium, Ionized (arterial) 1.08 mmol/L (1.12-1.30); Carboxyhemoglobin (COHb) 0.3 gm% (0.0-3.0); Hemoglobin (Hb) 14.4 g/dL (14.0-18.0); pH, Arterial 7.26 (7.35-7.45)
[2020-12-29 23:39] LABS: O2 Tension (PaO2), arterial 54.7 mmHg (> 80.0); Puncture Site LBA
[2020-12-30] MEDS ORDERED: Morphine 2 MG/ML VIAL ONE ×2 (02:18→03:20)
[2020-12-30] MEDS: Morphine 2 MG/ML VIAL SLOW IVP PRN ×2 (02:21→03:27)
[2020-12-30] MEDS ORDERED: Norepinephrine 8 MG/0.9% NS 250 ML IVPB SCH (09:27)
[2020-12-30 10:17] LABS: #Basophils 0.1 thou/uL (0.0-0.2); #Lymphocytes 0.7 thou/uL (1.20-3.40); #Monocytes 0.3 thou/uL (0.11-0.59); #Neutrophils 10.2 thou/uL (1.40-6.50); %Basophils 0.6 % (0.0-1.0); %Eosinophils 0.2 % (0.0-10.0); %Lymphocytes 6.2 % (21.0-51.0); %Monocytes 2.5 % (0.0-10.0); %Neutrophils 90.6 % (42.0-75.0); Band 30 % (5-11); Hemoglobin 14.6 g/dL (14.0-18.0); Lymphocytes 3 % (21-51); MDiff Complete? YES; Mean Corpuscular HGB CONC 31.7 g/dL (32.0-36.0); Mean Corpuscular Hemoglobin 29.5 pg (27.0-31.0); Mean Platelet Volume 12.5 fL (7.4-10.4); Monocytes 4 % (0-10); Neutrophil 63 % (42-75); Platelet Count 59 thou/uL (130-400); Platelet Morphology Comment Appears Decreased; RBC Distribution Width 13.8 % (11.5-14.5); RBC Morphology Normal; Red Blood Cell (RBC) Count 4.96 mill/uL (4.70-6.10); White Blood Cell (WBC) Count 11.2 thou/uL (4.8-10.8)
[2020-12-30] MEDS ORDERED: Dexamethasone 10 MG/ML VIAL ONE ×2 (10:20→22:20)
[2020-12-30] MEDS ORDERED: Famotidine/PF 20 mg/2ml Vial ONE (10:20)
[2020-12-30] MEDS ORDERED: Clopidogrel Bisulfate 75 MG TAB ONE (10:20)
[2020-12-30] MEDS: Dexamethasone 10 MG/ML VIAL SLOW IVP SCH ×2 (10:25→22:22)
[2020-12-30] MEDS: Dextrose 5 %-0.45 % NaCl 1,000 ML IV SCH ×2 (10:26→22:16)
[2020-12-30] MEDS: Famotidine/PF 20 mg/2ml Vial SLOW IVP SCH (10:27)
[2020-12-30 10:57] LABS: Platelet Count 94 thou/uL (130-400)
[2020-12-30 11:07] LABS: ALT (SGPT) 2915 U/L (8-55); Albumin 3.4 g/dL (3.4-4.8); Alkaline Phosphatase 93 U/L (40-110); Anion Gap 20 mmol/L (10-20); BUN (Urea Nitrogen) 66 mg/dL (8.4-25.7); Bilirubin, Total 2.6 mg/dL (0.2-1.2); Calc. Creatinine Clearance 27 mL/min (70-130); Carbon Dioxide 18 mmol/L (23-31); Chloride 105 mmol/L (98-107); Globulin 3.3 g/dL (2.4-3.5); Glucose 157 mg/dL (80-115); Protein, Total 6.7 g/dL (5.8-8.1); Sodium 138 mmol/L (136-145)
[2020-12-30 11:08] LABS: INR-International Normal Ratio 1.7; PTT 43.1 sec (22.9-36.1)
[2020-12-30] MEDS: Clopidogrel Bisulfate 75 MG TAB PO SCH (11:15)
[2020-12-30 11:21] LABS: CK (CPK) 7448 U/L (30-200)
[2020-12-30 11:31] LABS: D-Dimer Test Greater than 20.00 *mcg/mL (0.27-0.43)
[2020-12-30 11:37] LABS: Fibrinogen 323 mg/dL (253-463)
[2020-12-30 12:38] LABS: FSP-Qualitative ABNORMAL (Normal)
[2020-12-30 12:41] LABS: FSP-Semiquantitative >=40 & <80 mcg/mL (Less than 5)
[2020-12-30] MEDS ORDERED: Morphine 4 MG/ML VIAL ONE ×2 (14:40→19:56)
[2020-12-30] MEDS ORDERED: Cefepime 1 GM VIAL ONE (15:10)
[2020-12-30] MEDS: Cefepime 1 GM in Sodium Chloride 0.9% 100 ML IVPB SCH (15:13)
[2020-12-30 19:38] LABS: AST (SGOT) Greater than 3500 U/L (5-34)
[2020-12-30] MEDS: Morphine 4 MG/ML VIAL SLOW IVP PRN (19:59)
[2020-12-30] MEDS ORDERED: HumaLOG 300 UNITS/3 ML VIAL ONE (20:16)
[2020-12-30] MEDS: HumaLOG 300 UNITS/3 ML VIAL SC PRN (20:21)
[2020-12-30] MEDS ORDERED: Enoxaparin Sodium 100 MG/ML SYRINGE SC SCH (21:00)
[2020-12-30] MEDS: Atorvastatin Calcium 40 MG TAB PO SCH (21:00)
[2020-12-30] MEDS ORDERED: Enoxaparin Sodium 40 MG/0.4 ML SYRINGE ONE (22:14)
[2020-12-30] MEDS: Enoxaparin Sodium 40 MG/0.4 ML SYRINGE SC SCH (22:15)
[2020-12-30] MEDS ORDERED: Dexamethasone 4 mg/ml Vial ONE (22:15)
[2020-12-31] MEDS: Morphine 4 MG/ML VIAL SLOW IVP PRN ×4 (01:04→20:37)
[2020-12-31] MEDS ORDERED: Morphine 4 MG/ML VIAL ONE (01:04)
[2020-12-31 04:15] LABS: ALT (SGPT) 2520 U/L (8-55); AST (SGOT) 2344 U/L (5-34); Albumin 3.4 g/dL (3.4-4.8); Alkaline Phosphatase 103 U/L (40-110); Anion Gap 16 mmol/L (10-20); BUN (Urea Nitrogen) 61 mg/dL (8.4-25.7); Calc. Creatinine Clearance 35 mL/min (70-130); Calcium 7.6 mg/dL (7.8-10.44); Carbon Dioxide 21 mmol/L (23-31); Chloride 103 mmol/L (98-107); Globulin 3.2 g/dL (2.4-3.5); Glucose 273 mg/dL (80-115); Potassium 4.9 mmol/L (3.5-5.1); Protein, Total 6.6 g/dL (5.8-8.1); Sodium 135 mmol/L (136-145)
[2020-12-31 04:23] LABS: Band 16 % (5-11); Hemoglobin 14.2 g/dL (14.0-18.0); Lymphocytes 3 % (21-51); MDiff Complete? YES; Mean Corpuscular HGB CONC 30.5 g/dL (32.0-36.0); Mean Corpuscular Hemoglobin 28.4 pg (27.0-31.0); Mean Platelet Volume 13.8 fL (7.4-10.4); Monocytes 5 % (0-10); Neutrophil 76 % (42-75); Platelet Count 97 thou/uL (130-400); Platelet Morphology Comment Appears Decreased; RBC Distribution Width 13.7 % (11.5-14.5); RBC Morphology Normal; Red Blood Cell (RBC) Count 5.01 mill/uL (4.70-6.10); White Blood Cell (WBC) Count 11.1 thou/uL (4.8-10.8)
[2020-12-31 04:28] LABS: CK (CPK) 5545 U/L (30-200)
[2020-12-31] MEDS: Dextrose 5 %-0.45 % NaCl 1,000 ML IV SCH ×2 (04:36→14:10)
[2020-12-31] MEDS: HumaLOG 300 UNITS/3 ML VIAL SC PRN ×2 (05:34→10:47)
[2020-12-31] MEDS: Clopidogrel Bisulfate 75 MG TAB PO SCH (09:23)
[2020-12-31] MEDS: Enoxaparin Sodium 40 MG/0.4 ML SYRINGE SC SCH ×2 (09:24→21:02)
[2020-12-31] MEDS: Famotidine/PF 20 mg/2ml Vial SLOW IVP SCH (09:24)
[2020-12-31] MEDS: Dexamethasone 10 MG/ML VIAL SLOW IVP SCH (09:27)
[2020-12-31] MEDS ORDERED: Icosapent Ethyl 1 GM CAPSULE PO SCH (10:15)
[2020-12-31] MEDS: Cefepime 1 GM in Sodium Chloride 0.9% 100 ML IVPB SCH (14:36)
[2020-12-31] MEDS: Sodium Chloride 0.45% 1,000 ML IV SCH (16:35)
[2020-12-31] MEDS: cefTRIAXone\\ROCEPHIN 1 GM in Sodium Chloride 0.9% 100 ML IVPB SCH (16:35)
[2020-12-31] MEDS: Icosapent Ethyl 1 GM CAPSULE PO SCH ×2 (21:02→22:32)
[2020-12-31] MEDS: Dexamethasone 4 mg/ml Vial SLOW IVP SCH (21:02)
[2020-12-31] MEDS: Atorvastatin Calcium 40 MG TAB PO SCH ×2 (21:02→22:32)
[2020-12-31] MEDS ORDERED: Nitroglycerin 2% Ointment 1 INCH/1 GM Packet TOP SCH (22:00)
[2020-12-31 22:04] LABS: Critical Call Chem Troponin I RESULT DECREASING; Troponin I 7.459 ng/mL (< 0.028)
[2020-12-31] MEDS: Digoxin 0.5 MG/2 ML AMP SLOW IVP SCH ×2 (22:31→23:02)
[2021-01-01] MEDS: Sodium Chloride 0.45% 1,000 ML IV SCH ×2 (05:05→15:01)
[2021-01-01] MEDS: HumaLOG 300 UNITS/3 ML VIAL SC PRN ×3 (05:34→16:50)
[2021-01-01 06:09] LABS: ALT (SGPT) 1735 U/L (8-55); AST (SGOT) 814 U/L (5-34); Albumin 3.1 g/dL (3.4-4.8); Alkaline Phosphatase 91 U/L (40-110); Anion Gap 14 mmol/L (10-20); BUN (Urea Nitrogen) 63 mg/dL (8.4-25.7); Bilirubin, Total 1.8 mg/dL (0.2-1.2); CK (CPK) 2285 U/L (30-200); Calc. Creatinine Clearance 49 mL/min (70-130); Calcium 7.8 mg/dL (7.8-10.44); Carbon Dioxide 17 mmol/L (23-31); Chloride 108 mmol/L (98-107); Globulin 3.2 g/dL (2.4-3.5); Glucose 194 mg/dL (80-115); Potassium 5.2 mmol/L (3.5-5.1); Protein, Total 6.3 g/dL (5.8-8.1); Sodium 134 mmol/L (136-145)
[2021-01-01 06:11] LABS: #Lymphocytes 0.5 thou/uL (1.20-3.40); #Monocytes 0.5 thou/uL (0.11-0.59); #Neutrophils 10.4 thou/uL (1.40-6.50); %Basophils 0.1 % (0.0-1.0); %Eosinophils 0.1 % (0.0-10.0); %Lymphocytes 4.4 % (21.0-51.0); %Monocytes 4.1 % (0.0-10.0); %Neutrophils 91.3 % (42.0-75.0); Hemoglobin 14.4 g/dL (14.0-18.0); Large Platelets SLIGHT; MDiff Complete? YES; Mean Corpuscular HGB CONC 31.8 g/dL (32.0-36.0); Mean Corpuscular Hemoglobin 29.4 pg (27.0-31.0); Mean Corpuscular Volume 92.7 fL (78.0-98.0); Mean Platelet Volume 10.6 fL (7.4-10.4); Platelet Count 86 thou/uL (130-400); Platelet Morphology Comment Appears Decreased; RBC Distribution Width 13.7 % (11.5-14.5); Red Blood Cell (RBC) Count 4.88 mill/uL (4.70-6.10); White Blood Cell (WBC) Count 11.4 thou/uL (4.8-10.8)
[2021-01-01] MEDS: Famotidine/PF 20 mg/2ml Vial SLOW IVP SCH (08:47)
[2021-01-01] MEDS: Icosapent Ethyl 1 GM CAPSULE PO SCH ×2 (08:47→21:23)
[2021-01-01] MEDS: Clopidogrel Bisulfate 75 MG TAB PO SCH (08:47)
[2021-01-01] MEDS: Enoxaparin Sodium 40 MG/0.4 ML SYRINGE SC SCH ×2 (08:48→21:23)
[2021-01-01] MEDS: Dexamethasone 4 mg/ml Vial SLOW IVP SCH ×2 (08:48→21:24)
[2021-01-01] MEDS: Digoxin 0.25 MG TAB PO SCH (09:57)
[2021-01-01] MEDS ORDERED: Dextrose 50% Abboject 50 ML SYRINGE SLOW IVP SCH (10:00)
[2021-01-01] MEDS ORDERED: Insulin Regular 300 UNITS/3 ML VIAL IVP SCH (10:00)
[2021-01-01] MEDS: cefTRIAXone\\ROCEPHIN 1 GM in Sodium Chloride 0.9% 100 ML IVPB SCH (15:02)
[2021-01-01] MEDS: Morphine 4 MG/ML VIAL SLOW IVP PRN ×2 (15:19→21:25)
[2021-01-01] MEDS: Albuterol 200 PUFF (6.7GM INHALER) INH PRN (15:19)
[2021-01-01] MEDS: Albumin 25% 25 GM/100 ML BOT IVPB SCH (18:18)
[2021-01-01] MEDS: Acetaminophen 500 MG TAB PO PRN (21:25)
[2021-01-02] MEDS: Albumin 25% 25 GM/100 ML BOT IVPB SCH ×3 (00:09→11:58)
[2021-01-02 05:21] LABS: Band 12 % (5-11); Burr Cells SLIGHT = 2-5 cells (100X) (0-1/hpf); Hemoglobin 14.4 g/dL (14.0-18.0); Lymphocytes 1 % (21-51); MDiff Complete? YES; Mean Corpuscular HGB CONC 30.8 g/dL (32.0-36.0); Mean Corpuscular Hemoglobin 28.6 pg (27.0-31.0); Mean Corpuscular Volume 92.8 fL (78.0-98.0); Mean Platelet Volume 13.6 fL (7.4-10.4); Monocytes 4 % (0-10); Neutrophil 83 % (42-75); Platelet Count 80 thou/uL (130-400); Platelet Morphology Comment Appears Decreased; RBC Distribution Width 13.9 % (11.5-14.5); Red Blood Cell (RBC) Count 5.03 mill/uL (4.70-6.10)
[2021-01-02] MEDS: Sodium Chloride 0.45% 1,000 ML IV SCH (05:45)
[2021-01-02] MEDS: HumaLOG 300 UNITS/3 ML VIAL SC PRN ×2 (05:58→11:40)
[2021-01-02 06:40] LABS: ALT (SGPT) 1051 U/L (8-55); AST (SGOT) 225 U/L (5-34); Albumin 3.6 g/dL (3.4-4.8); Alkaline Phosphatase 84 U/L (40-110); Anion Gap 14 mmol/L (10-20); BUN (Urea Nitrogen) 58 mg/dL (8.4-25.7); Bilirubin, Total 2.1 mg/dL (0.2-1.2); Calc. Creatinine Clearance 72 mL/min (70-130); Calcium 8.2 mg/dL (7.8-10.44); Carbon Dioxide 21 mmol/L (23-31); Chloride 106 mmol/L (98-107); Globulin 3.1 g/dL (2.4-3.5); Glucose 213 mg/dL (80-115); Potassium 5.1 mmol/L (3.5-5.1); Protein, Total 6.7 g/dL (5.8-8.1); Sodium 136 mmol/L (136-145)
[2021-01-02] MEDS: Dexamethasone 4 mg/ml Vial SLOW IVP SCH ×2 (08:40→22:21)
[2021-01-02] MEDS: Digoxin 0.25 MG TAB PO SCH (08:42)
[2021-01-02] MEDS: Clopidogrel Bisulfate 75 MG TAB PO SCH (08:42)
[2021-01-02] MEDS: Famotidine/PF 20 mg/2ml Vial SLOW IVP SCH (08:43)
[2021-01-02] MEDS: Enoxaparin Sodium 40 MG/0.4 ML SYRINGE SC SCH ×2 (08:43→22:20)
[2021-01-02] MEDS: Icosapent Ethyl 1 GM CAPSULE PO SCH ×2 (08:45→22:20)
[2021-01-02] MEDS ORDERED: Sodium Chloride 0.45% 1,000 ML IV SCH (12:34)
[2021-01-02] MEDS: Morphine 4 MG/ML VIAL SLOW IVP PRN ×3 (12:47→22:58)
[2021-01-02] MEDS: Carvedilol 6.25 MG TAB PO SCH (16:02)
[2021-01-02] MEDS: cefTRIAXone\\ROCEPHIN 1 GM in Sodium Chloride 0.9% 100 ML IVPB SCH (16:03)
[2021-01-02] MEDS: Acetaminophen 500 MG TAB PO PRN (17:32)
[2021-01-02] MEDS ORDERED: Furosemide 20 MG/2 ML VIAL SLOW IVP SCH ×2 (18:15→22:00)
[2021-01-03] MEDS: HumaLOG 300 UNITS/3 ML VIAL SC PRN ×4 (00:40→21:03)
[2021-01-03 05:00] LABS: #Lymphocytes 0.3 thou/uL (1.20-3.40); #Monocytes 0.4 thou/uL (0.11-0.59); #Neutrophils 10.4 thou/uL (1.40-6.50); %Lymphocytes 2.3 % (21.0-51.0); %Monocytes 3.7 % (0.0-10.0); Hemoglobin 14.2 g/dL (14.0-18.0); Mean Corpuscular HGB CONC 31.9 g/dL (32.0-36.0); Mean Corpuscular Hemoglobin 29.6 pg (27.0-31.0); Mean Corpuscular Volume 92.7 fL (78.0-98.0); Mean Platelet Volume 12.9 fL (7.4-10.4); Platelet Count 72 thou/uL (130-400); RBC Distribution Width 14.1 % (11.5-14.5); Red Blood Cell (RBC) Count 4.82 mill/uL (4.70-6.10); White Blood Cell (WBC) Count 11.1 thou/uL (4.8-10.8)
[2021-01-03 05:22] LABS: ALT (SGPT) 677 U/L (8-55); AST (SGOT) 89 U/L (5-34); Albumin 3.5 g/dL (3.4-4.8); Alkaline Phosphatase 75 U/L (40-110); Anion Gap 15 mmol/L (10-20); BUN (Urea Nitrogen) 48 mg/dL (8.4-25.7); Bilirubin, Total 2.1 mg/dL (0.2-1.2); CK (CPK) 312 U/L (30-200); Calc. Creatinine Clearance 99 mL/min (70-130); Calcium 8.3 mg/dL (7.8-10.44); Carbon Dioxide 21 mmol/L (23-31); Chloride 105 mmol/L (98-107); Glucose 271 mg/dL (80-115); Magnesium 2.5 mg/dL (1.6-2.6); Potassium 5.1 mmol/L (3.5-5.1); Protein, Total 6.5 g/dL (5.8-8.1); Sodium 136 mmol/L (136-145)
[2021-01-03] MEDS: Dexamethasone 4 mg/ml Vial SLOW IVP SCH ×2 (08:23→21:01)
[2021-01-03] MEDS: Enoxaparin Sodium 40 MG/0.4 ML SYRINGE SC SCH ×2 (08:23→22:29)
[2021-01-03] MEDS: Clopidogrel Bisulfate 75 MG TAB PO SCH (08:24)
[2021-01-03] MEDS: Carvedilol 6.25 MG TAB PO SCH ×2 (08:24→16:16)
[2021-01-03] MEDS: Icosapent Ethyl 1 GM CAPSULE PO SCH ×2 (08:24→21:01)
[2021-01-03] MEDS: Digoxin 0.25 MG TAB PO SCH (08:25)
[2021-01-03] MEDS: Famotidine/PF 20 mg/2ml Vial SLOW IVP SCH (08:25)
[2021-01-03] MEDS: Furosemide 20 MG/2 ML VIAL SLOW IVP SCH (13:46)
[2021-01-03] MEDS: cefTRIAXone\\ROCEPHIN 1 GM in Sodium Chloride 0.9% 100 ML IVPB SCH (16:14)
[2021-01-03] MEDS: Morphine 4 MG/ML VIAL SLOW IVP PRN ×2 (16:17→21:05)
[2021-01-03] MEDS ORDERED: methylPREDNISolone Sod Succ/PF 125 MG/2 ML VIAL IVP SCH (18:00)
[2021-01-03] MEDS: Acetaminophen 500 MG TAB PO PRN (21:07)
[2021-01-04] MEDS: Furosemide 20 MG/2 ML VIAL SLOW IVP SCH ×2 (05:41→12:55)
[2021-01-04 05:57] LABS: Hemoglobin 13.9 g/dL (14.0-18.0); Mean Corpuscular Hemoglobin 29.7 pg (27.0-31.0); Mean Corpuscular Volume 92.8 fL (78.0-98.0); Red Blood Cell (RBC) Count 4.68 mill/uL (4.70-6.10); White Blood Cell (WBC) Count 9.2 thou/uL (4.8-10.8)
[2021-01-04 06:41] LABS: #Lymphocytes 0.3 thou/uL (1.20-3.40); #Monocytes 0.4 thou/uL (0.11-0.59); #Neutrophils 8.5 thou/uL (1.40-6.50); %Lymphocytes 3.3 % (21.0-51.0); %Monocytes 4.4 % (0.0-10.0); %Neutrophils 92.3 % (42.0-75.0); Large Platelets SLIGHT; MDiff Complete? YES; Mean Platelet Volume 13.7 fL (7.4-10.4); Platelet Count 81 thou/uL (130-400); Platelet Morphology Comment Appears Decreased
[2021-01-04] MEDS: HumaLOG 300 UNITS/3 ML VIAL SC PRN ×4 (06:48→23:43)
[2021-01-04 06:51] LABS: Albumin 3.3 g/dL (3.4-4.8)
[2021-01-04 06:52] LABS: Calcium 8.1 mg/dL (7.8-10.44); Chloride 103 mmol/L (98-107); Potassium 4.9 mmol/L (3.5-5.1); Sodium 139 mmol/L (136-145)
[2021-01-04 06:53] LABS: Globulin 2.5 g/dL (2.4-3.5); Protein, Total 5.8 g/dL (5.8-8.1)
[2021-01-04 06:54] LABS: Anion Gap 15 mmol/L (10-20); Carbon Dioxide 26 mmol/L (23-31)
[2021-01-04 06:55] LABS: Bilirubin, Total 2.2 mg/dL (0.2-1.2)
[2021-01-04 06:56] LABS: Alkaline Phosphatase 79 U/L (40-110); Calc. Creatinine Clearance 120 mL/min (70-130)
[2021-01-04 06:57] LABS: BUN (Urea Nitrogen) 42 mg/dL (8.4-25.7)
[2021-01-04 06:58] LABS: AST (SGOT) 54 U/L (5-34); Magnesium 2.1 mg/dL (1.6-2.6)
[2021-01-04 06:59] LABS: ALT (SGPT) 469 U/L (8-55)
[2021-01-04 07:07] LABS: Glucose 260 mg/dL (80-115)
[2021-01-04] MEDS: Digoxin 0.25 MG TAB PO SCH (08:28)
[2021-01-04] MEDS: Carvedilol 6.25 MG TAB PO SCH ×2 (08:28→15:59)
[2021-01-04] MEDS: Icosapent Ethyl 1 GM CAPSULE PO SCH ×2 (08:29→21:23)
[2021-01-04] MEDS: Clopidogrel Bisulfate 75 MG TAB PO SCH (08:29)
[2021-01-04] MEDS: Dexamethasone 4 mg/ml Vial SLOW IVP SCH (08:30)
[2021-01-04] MEDS: Famotidine/PF 20 mg/2ml Vial SLOW IVP SCH (08:32)
[2021-01-04] MEDS: Morphine 4 MG/ML VIAL SLOW IVP PRN ×2 (08:42→16:00)
[2021-01-04] MEDS: Spironolactone 25 MG TAB PO SCH (08:42)
[2021-01-04] MEDS: Enoxaparin Sodium 40 MG/0.4 ML SYRINGE SC SCH (10:24)
[2021-01-04] MEDS: Albuterol 200 PUFF (6.7GM INHALER) INH PRN (10:37)
[2021-01-04] MEDS: cefTRIAXone\\ROCEPHIN 1 GM in Sodium Chloride 0.9% 100 ML IVPB SCH (17:39)
[2021-01-04] MEDS ORDERED: Enoxaparin Sodium 40 MG/0.4 ML SYRINGE SC SCH (21:00)
[2021-01-04] MEDS ORDERED: Atorvastatin Calcium 40 MG TAB PO SCH (21:00)
[2021-01-04] MEDS: Gabapentin 300 MG CAP PO SCH (21:22)
[2021-01-05 05:12] LABS: #Basophils 0.1 thou/uL (0.0-0.2); #Lymphocytes 0.2 thou/uL (1.20-3.40); #Monocytes 0.5 thou/uL (0.11-0.59); #Neutrophils 8.8 thou/uL (1.40-6.50); %Basophils 1.1 % (0.0-1.0); %Lymphocytes 1.7 % (21.0-51.0); %Monocytes 5.6 % (0.0-10.0); %Neutrophils 91.6 % (42.0-75.0); Hemoglobin 14.9 g/dL (14.0-18.0); Mean Corpuscular HGB CONC 31.4 g/dL (32.0-36.0); Mean Corpuscular Volume 92.3 fL (78.0-98.0); Mean Platelet Volume 13.8 fL (7.4-10.4); Platelet Count 91 thou/uL (130-400); Red Blood Cell (RBC) Count 5.12 mill/uL (4.70-6.10); White Blood Cell (WBC) Count 9.6 thou/uL (4.8-10.8)
[2021-01-05 05:20] LABS: ALT (SGPT) 339 U/L (8-55); AST (SGOT) 38 U/L (5-34); Albumin 3.2 g/dL (3.4-4.8); Alkaline Phosphatase 83 U/L (40-110); Anion Gap 15 mmol/L (10-20); BUN (Urea Nitrogen) 39 mg/dL (8.4-25.7); Bilirubin, Total 2.5 mg/dL (0.2-1.2); CRP (Inflammatory) 3.69 mg/dL (= or < 0.5); Calc. Creatinine Clearance 123 mL/min (70-130); Calcium 8.2 mg/dL (7.8-10.44); Carbon Dioxide 27 mmol/L (23-31); Chloride 100 mmol/L (98-107); Globulin 2.7 g/dL (2.4-3.5); Glucose 287 mg/dL (80-115); Potassium 4.6 mmol/L (3.5-5.1); Protein, Total 5.9 g/dL (5.8-8.1); Sodium 137 mmol/L (136-145)
[2021-01-05] MEDS: Furosemide 20 MG/2 ML VIAL SLOW IVP SCH ×2 (06:21→13:48)
[2021-01-05] MEDS: HumaLOG 300 UNITS/3 ML VIAL SC PRN ×4 (06:23→21:34)
[2021-01-05] MEDS ORDERED: Lantus 1000 UNITS/10 ML VIAL SC SCH (09:00)
[2021-01-05] MEDS: Digoxin 0.25 MG TAB PO SCH (09:06)
[2021-01-05] MEDS: Spironolactone 25 MG TAB PO SCH ×2 (09:07→12:26)
[2021-01-05] MEDS: Clopidogrel Bisulfate 75 MG TAB PO SCH (09:13)
[2021-01-05] MEDS: Icosapent Ethyl 1 GM CAPSULE PO SCH ×2 (09:13→21:30)
[2021-01-05] MEDS: Carvedilol 6.25 MG TAB PO SCH ×2 (09:14→16:45)
[2021-01-05] MEDS: Apixaban 5 MG TAB PO SCH ×2 (09:14→21:30)
[2021-01-05] MEDS: Dexamethasone 4 mg/ml Vial SLOW IVP SCH (09:15)
[2021-01-05] MEDS: Famotidine/PF 20 mg/2ml Vial SLOW IVP SCH (11:08)
[2021-01-05] MEDS: Sacubitril 49 MG/Valsartan 51 MG TABLET PO SCH ×2 (11:17→21:29)
[2021-01-05] MEDS: Gabapentin 300 MG CAP PO SCH (21:29)
[2021-01-05] MEDS: Acetaminophen 500 MG TAB PO PRN (22:29)
[2021-01-05] MEDS ORDERED: Loperamide HCl 2 MG CAP PO PRN (23:16)
[2021-01-06] MEDS: Furosemide 20 MG/2 ML VIAL SLOW IVP SCH ×2 (05:56→12:58)
[2021-01-06] MEDS: HumaLOG 300 UNITS/3 ML VIAL SC PRN ×4 (06:01→21:13)
[2021-01-06] MEDS ORDERED: Lantus 1000 UNITS/10 ML VIAL SC SCH ×3 (09:00→17:13)
[2021-01-06] MEDS: Clopidogrel Bisulfate 75 MG TAB PO SCH (09:02)
[2021-01-06] MEDS: Icosapent Ethyl 1 GM CAPSULE PO SCH ×2 (09:02→20:55)
[2021-01-06] MEDS: Digoxin 0.25 MG TAB PO SCH (09:02)
[2021-01-06] MEDS: Sacubitril 49 MG/Valsartan 51 MG TABLET PO SCH ×2 (09:02→21:12)
[2021-01-06] MEDS: Carvedilol 6.25 MG TAB PO SCH ×2 (09:03→17:29)
[2021-01-06] MEDS: Apixaban 5 MG TAB PO SCH ×2 (09:04→20:54)
[2021-01-06] MEDS: Spironolactone 25 MG TAB PO SCH (09:05)
[2021-01-06] MEDS: Dexamethasone 4 mg/ml Vial SLOW IVP SCH (09:06)
[2021-01-06] MEDS: Famotidine/PF 20 mg/2ml Vial SLOW IVP SCH (09:06)
[2021-01-06] MEDS: Morphine 4 MG/ML VIAL SLOW IVP PRN (13:03)
[2021-01-06] MEDS: Gabapentin 300 MG CAP PO SCH (20:54)
[2021-01-07] MEDS ORDERED: hydrALAZINE 20 MG/ML VIAL SLOW IVP PRN (00:39)
[2021-01-07] MEDS: Morphine 4 MG/ML VIAL SLOW IVP PRN (04:37)
[2021-01-07 05:03] LABS: ALT (SGPT) 195 U/L (8-55); AST (SGOT) 30 U/L (5-34); Alkaline Phosphatase 83 U/L (40-110); Anion Gap 11 mmol/L (10-20); BUN (Urea Nitrogen) 34 mg/dL (8.4-25.7); Bilirubin, Total 2.9 mg/dL (0.2-1.2); Calc. Creatinine Clearance 113 mL/min (70-130); Carbon Dioxide 32 mmol/L (23-31); Chloride 98 mmol/L (98-107); Globulin 2.5 g/dL (2.4-3.5); Glucose 315 mg/dL (80-115); Potassium 4.2 mmol/L (3.5-5.1); Protein, Total 5.5 g/dL (5.8-8.1); Sodium 137 mmol/L (136-145)
[2021-01-07] MEDS: Furosemide 20 MG/2 ML VIAL SLOW IVP SCH (05:14)
[2021-01-07] MEDS: HumaLOG 300 UNITS/3 ML VIAL SC PRN ×2 (05:37→13:51)
[2021-01-07] MEDS ORDERED: Dexamethasone 4 MG TAB PO SCH (08:00)
[2021-01-07] MEDS ORDERED: Carvedilol 25 MG TAB PO SCH ×2 (08:15→17:00)
[2021-01-07] MEDS: Sacubitril 49 MG/Valsartan 51 MG TABLET PO SCH (10:17)
[2021-01-07] MEDS: Apixaban 5 MG TAB PO SCH (10:18)
[2021-01-07] MEDS: Clopidogrel Bisulfate 75 MG TAB PO SCH (10:18)
[2021-01-07] MEDS: Icosapent Ethyl 1 GM CAPSULE PO SCH (10:19)
[2021-01-07] MEDS: Digoxin 0.25 MG TAB PO SCH (10:22)
[2021-01-07] MEDS: Spironolactone 25 MG TAB PO SCH (10:22)
[2021-01-07] MEDS: Famotidine/PF 20 mg/2ml Vial SLOW IVP SCH (10:23)
[2021-01-07 12:32] VITALS: TEMP 97.7
[2021-01-07 14:35] VITALS: BMI 29.3
[2021-01-07 15:41] VITALS: BP 136/60
[2021-01-08] MEDS ORDERED: Furosemide 40 MG TAB PO SCH (07:30)
== END 2021-01-07 16:18 | DRG 871 ==
LOC: ERS 11:58 → ERHOLD 15:52 → CCU 12-31 03:00 → 2SW 12-31 17:29
PROVIDERS: ADMIT Family Medicine; ATTEND Internal Medicine
PROC: 8E0ZXY6 Isolation (ICD-10-PCS; principal; 2020-12-29)
PROC: 3E033XZ Introduction of Vasopressor into Peripheral Vein, Percutaneous Approach (ICD-10-PCS; 2020-12-29)
PROC: 5A09457 Assistance with Respiratory Ventilation, 24-96 Consecutive Hours, Continuous Positive Airway Pressure (ICD-10-PCS; 2020-12-29)
DX: A41.89 Other specified sepsis (principal); U07.1 COVID-19; J12.82 Pneumonia due to coronavirus disease 2019; J96.01 Acute respiratory failure with hypoxia; I21.4 Non-ST elevation (NSTEMI) myocardial infarction; R65.21 Severe sepsis with septic shock; K72.00 Acute and subacute hepatic failure without coma; M62.82 Rhabdomyolysis; I50.42 Chronic combined systolic (congestive) and diastolic (congestive) heart failure; N17.9 Acute kidney failure, unspecified; I13.0 Hypertensive heart and chronic kidney disease with heart failure and stage 1 through stage 4 chronic kidney disease, or unspecified chronic kidney disease; I48.21 Permanent atrial fibrillation; Z66 Do not resuscitate; E11.42 Type 2 diabetes mellitus with diabetic polyneuropathy; I25.5 Ischemic cardiomyopathy; I25.10 Atherosclerotic heart disease of native coronary artery without angina pectoris; I65.29 Occlusion and stenosis of unspecified carotid artery; G47.33 Obstructive sleep apnea (adult) (pediatric); E87.5 Hyperkalemia; D69.6 Thrombocytopenia, unspecified; K75.9 Inflammatory liver disease, unspecified; K72.10 Chronic hepatic failure without coma; E11.22 Type 2 diabetes mellitus with diabetic chronic kidney disease; N18.9 Chronic kidney disease, unspecified; R19.7 Diarrhea, unspecified; I25.2 Old myocardial infarction; Z95.1 Presence of aortocoronary bypass graft; Z87.891 Personal history of nicotine dependence; Z98.890 Other specified postprocedural states; Z88.8 Allergy status to other drugs, medicaments and biological substances; Z79.01 Long term (current) use of anticoagulants; Z79.84 Long term (current) use of oral hypoglycemic drugs; Z79.899 Other long term (current) drug therapy; Z89.512 Acquired absence of left leg below knee; Z86.73 Personal history of transient ischemic attack (TIA), and cerebral infarction without residual deficits
CPT/HCPCS: 36415; 36416; 36600; 70450; 71045; 71250; 72125; 74177; 80053; 81003; 81015; 82274; 82550; 82553; 82728; 82805; 83605; 83735; 83880; 84484; 85025; 85049; 85300; 85362; 85379; 85384; 85610; 85730; 86140; 86850; 86900; 86901; 87324; 87449; 93005; 93010; 94660; J0360; J0692; J0696; J1100; J1160; J1650; J1815; J1940; J1956; J2270; J3490; J7042; J7050; J8540; P9047; S0028; U0002

== ENCOUNTER 2021-02-08 14:30 | Inpatient (IN) | payer MEDICARE ==
[2021-02-08 17:09] VITALS: BMI 28.3
[2021-02-08] MEDS ORDERED: Acetaminophen 650 MG Suppository PR PRN (17:36)
[2021-02-08] MEDS ORDERED: Senokot S 8.6-50 MG TAB PO PRN (17:36)
[2021-02-08] MEDS ORDERED: Ondansetron ODT 4 MG TAB PO PRN (17:36)
[2021-02-08] MEDS ORDERED: Metoprolol Tartrate 5 MG/5 ML VIAL IVP PRN (17:39)
[2021-02-08] MEDS ORDERED: Metoprolol Tartrate 5 MG/5 ML VIAL IVP SCH (17:45)
[2021-02-08] MEDS ORDERED: Dextrose 5% in Water 1,000 ML IV PRN (17:52)
[2021-02-08] MEDS ORDERED: Dextrose 50% Abboject 50 ML SYRINGE SLOW IVP PRN (17:52)
[2021-02-08 18:11] LABS: #Basophils 0.1 thou/uL (0.0-0.2); #Lymphocytes 2.5 thou/uL (1.20-3.40); #Monocytes 1.9 thou/uL (0.11-0.59); #Neutrophils 9.2 thou/uL (1.40-6.50); %Basophils 0.7 % (0.0-1.0); %Eosinophils 0.3 % (0.0-10.0); %Lymphocytes 18.4 % (21.0-51.0); %Monocytes 13.9 % (0.0-10.0); %Neutrophils 66.6 % (42.0-75.0); Hemoglobin 12.3 g/dL (14.0-18.0); Mean Corpuscular Hemoglobin 29.6 pg (27.0-31.0); Mean Corpuscular Volume 92.5 fL (78.0-98.0); Mean Platelet Volume 9.4 fL (7.4-10.4); Platelet Count 259 thou/uL (130-400); Red Blood Cell (RBC) Count 4.14 mill/uL (4.70-6.10); White Blood Cell (WBC) Count 13.8 thou/uL (4.8-10.8)
[2021-02-08 18:24] LABS: INR-International Normal Ratio 1.4; Prothrombin Time 17.3 sec (12.0-14.7)
[2021-02-08 18:25] LABS: PTT 32.5 sec (22.9-36.1)
[2021-02-08 18:29] LABS: Lactic Acid 3.5 mmol/L (0.5-2.2)
[2021-02-08] MEDS ORDERED: Carvedilol 25 MG TAB PO SCH (18:30)
[2021-02-08 18:32] LABS: ALT (SGPT) 17 U/L (8-55); AST (SGOT) 16 U/L (5-34); Albumin 3.2 g/dL (3.4-4.8); Alkaline Phosphatase 75 U/L (40-110); Anion Gap 18 mmol/L (10-20); BUN (Urea Nitrogen) 16 mg/dL (8.4-25.7); Bilirubin, Total 1.7 mg/dL (0.2-1.2); Calc. Creatinine Clearance 102 mL/min (70-130); Calcium 8.2 mg/dL (7.8-10.44); Carbon Dioxide 23 mmol/L (23-31); Chloride 102 mmol/L (98-107); Globulin 3.2 g/dL (2.4-3.5); Glucose 113 mg/dL (80-115); Magnesium 1.9 mg/dL (1.6-2.6); Potassium 4.6 mmol/L (3.5-5.1); Protein, Total 6.4 g/dL (5.8-8.1); Sodium 138 mmol/L (136-145)
[2021-02-08 18:39] LABS: Digoxin 0.82 ng/mL (0.8-2.0)
[2021-02-08] MEDS: cefTRIAXone\\ROCEPHIN 1 GM in Sodium Chloride 0.9% 100 ML IVPB SCH (18:55)
[2021-02-08 19:29] LABS: CKMB 2.6 ng/mL (0-6.6)
[2021-02-08] MEDS: Gabapentin 300 MG CAP PO SCH (20:03)
[2021-02-08] MEDS: Apixaban 5 MG TAB PO SCH (20:03)
[2021-02-08] MEDS: Azithromycin 500 MG in Sodium Chloride 0.9% 250 ML 250 ML IVPB SCH (20:05)
[2021-02-08] MEDS ORDERED: Albuterol 200 PUFF (6.7GM INHALER) INH PRN (20:36)
[2021-02-08 21:32] LABS: SARS-CoV-2 PCR by NAA Not Detected (NotDetected)
[2021-02-09 01:09] LABS: Critical Call Chem Troponin I RESULT DECREASING
[2021-02-09] MEDS: traMADol HCl 50 MG TAB PO PRN ×3 (01:20→17:00)
[2021-02-09 01:28] LABS: CKMB 2.8 ng/mL (0-6.6)
[2021-02-09 02:07] LABS: Bacteria/HPF None Seen HPF (None Seen); Bilirubin Negative (Negative); Blood, Urine Negative (Negative); Clarity Clear (Clear); Glucose, Urine (Dipstick) Normal (Negative); Ketone, Urine Trace mg/dL (Negative); Leukocyte Negative Leu/uL (Negative); Nitrite Negative (Negative); Protein, Urine (Dipstick) 30 mg/dL (Neg-Trace); RBC/HPF 0-3 HPF (0-3); Specific Gravity, Urine 1.027 (1.002-1.036); Squamous Epithelial 0-3 HPF (0-3); WBC/HPF 0-3 HPF (0-3); pH, Urine 5.5 (5.0-9.0)
[2021-02-09 02:13] LABS: Urine Culture Reflex No No
[2021-02-09 05:36] LABS: #Basophils 0.1 thou/uL (0.0-0.2); #Eosinphils 0.1 thou/uL (0.0-0.7); #Lymphocytes 2.1 thou/uL (1.20-3.40); #Monocytes 1.9 thou/uL (0.11-0.59); #Neutrophils 8.8 thou/uL (1.40-6.50); %Basophils 0.6 % (0.0-1.0); %Eosinophils 0.9 % (0.0-10.0); %Lymphocytes 15.9 % (21.0-51.0); %Monocytes 14.5 % (0.0-10.0); %Neutrophils 68.1 % (42.0-75.0); Hemoglobin 10.8 g/dL (14.0-18.0); Mean Corpuscular HGB CONC 32.3 g/dL (32.0-36.0); Mean Corpuscular Hemoglobin 29.7 pg (27.0-31.0); Mean Corpuscular Volume 91.9 fL (78.0-98.0); Mean Platelet Volume 9.8 fL (7.4-10.4); Platelet Count 242 thou/uL (130-400); Red Blood Cell (RBC) Count 3.66 mill/uL (4.70-6.10); White Blood Cell (WBC) Count 12.9 thou/uL (4.8-10.8)
[2021-02-09 05:59] LABS: Anion Gap 16 mmol/L (10-20); BUN (Urea Nitrogen) 18 mg/dL (8.4-25.7); Calc. Creatinine Clearance 109 mL/min (70-130); Calcium 8.4 mg/dL (7.8-10.44); Carbon Dioxide 27 mmol/L (23-31); Chloride 101 mmol/L (98-107); Glucose 135 mg/dL (80-115); Potassium 4.5 mmol/L (3.5-5.1); Sodium 139 mmol/L (136-145)
[2021-02-09] MEDS: Apixaban 5 MG TAB PO SCH ×2 (08:13→20:32)
[2021-02-09] MEDS: Carvedilol 25 MG TAB PO SCH ×2 (08:13→17:00)
[2021-02-09] MEDS: Insulin Regular 300 UNITS/3 ML VIAL SC PRN (11:33)
[2021-02-09] MEDS: cefTRIAXone\\ROCEPHIN 1 GM in Sodium Chloride 0.9% 100 ML IVPB SCH (17:01)
[2021-02-09] MEDS: Gabapentin 300 MG CAP PO SCH (20:31)
[2021-02-09] MEDS: Azithromycin 500 MG in Sodium Chloride 0.9% 250 ML 250 ML IVPB SCH (20:32)
[2021-02-09] MEDS: Acetaminophen 325 MG TAB PO PRN (20:34)
[2021-02-09] MEDS: Ondansetron PF 4 MG/2 ML Vial IVP PRN (21:54)
[2021-02-10] MEDS: traMADol HCl 50 MG TAB PO PRN ×3 (03:42→23:39)
[2021-02-10 06:21] LABS: Anion Gap 13 mmol/L (10-20); BUN (Urea Nitrogen) 26 mg/dL (8.4-25.7); Calc. Creatinine Clearance 93 mL/min (70-130); Calcium 7.9 mg/dL (7.8-10.44); Carbon Dioxide 26 mmol/L (23-31); Chloride 102 mmol/L (98-107); Glucose 150 mg/dL (80-115); Potassium 4.3 mmol/L (3.5-5.1); Sodium 137 mmol/L (136-145)
[2021-02-10 06:31] LABS: Hypochromia SLIGHT = 6-15 cells (100X) (0-5/hpf); Lymphocytes 20 % (21-51); MDiff Complete? YES; Mean Corpuscular HGB CONC 32.1 g/dL (32.0-36.0); Mean Corpuscular Hemoglobin 29.8 pg (27.0-31.0); Mean Platelet Volume 9.5 fL (7.4-10.4); Monocytes 4 % (0-10); Neutrophil 76 % (42-75); Platelet Count 221 thou/uL (130-400); Platelet Morphology Comment Appears Adequate; Red Blood Cell (RBC) Count 3.35 mill/uL (4.70-6.10); White Blood Cell (WBC) Count 11.3 thou/uL (4.8-10.8)
[2021-02-10] MEDS: Carvedilol 6.25 MG TAB PO SCH ×2 (08:26→17:56)
[2021-02-10] MEDS: Apixaban 5 MG TAB PO SCH (08:26)
[2021-02-10] MEDS ORDERED: Spironolactone 25 MG TAB PO SCH (09:00)
[2021-02-10] MEDS ORDERED: Icosapent Ethyl 1 GM CAPSULE PO SCH (09:15)
[2021-02-10] MEDS: Digoxin 0.25 MG TAB PO SCH (10:29)
[2021-02-10] MEDS: Ondansetron PF 4 MG/2 ML Vial IVP PRN ×2 (12:19→18:48)
[2021-02-10] MEDS: Acetaminophen 325 MG TAB PO PRN (15:25)
[2021-02-10] MEDS: cefTRIAXone\\ROCEPHIN 1 GM in Sodium Chloride 0.9% 100 ML IVPB SCH (17:56)
[2021-02-10] MEDS ORDERED: Ondansetron ODT 4 MG TAB PO PRN (18:54)
[2021-02-10] MEDS: Gabapentin 300 MG CAP PO SCH (20:45)
[2021-02-10] MEDS: Azithromycin 500 MG in Sodium Chloride 0.9% 250 ML 250 ML IVPB SCH (20:45)
[2021-02-10] MEDS: Icosapent Ethyl 1 GM CAPSULE PO SCH (20:45)
[2021-02-11 06:15] LABS: #Eosinphils 0.1 thou/uL (0.0-0.7); #Lymphocytes 1.7 thou/uL (1.20-3.40); #Monocytes 1.5 thou/uL (0.11-0.59); #Neutrophils 9.2 thou/uL (1.40-6.50); %Basophils 0.3 % (0.0-1.0); %Eosinophils 0.5 % (0.0-10.0); %Lymphocytes 13.4 % (21.0-51.0); %Monocytes 11.7 % (0.0-10.0); %Neutrophils 74.1 % (42.0-75.0); Hemoglobin 10.7 g/dL (14.0-18.0); Mean Corpuscular HGB CONC 32.3 g/dL (32.0-36.0); Mean Corpuscular Hemoglobin 29.6 pg (27.0-31.0); Mean Corpuscular Volume 91.7 fL (78.0-98.0); Mean Platelet Volume 10.5 fL (7.4-10.4); Platelet Count 226 thou/uL (130-400); RBC Distribution Width 14.6 % (11.5-14.5); Red Blood Cell (RBC) Count 3.63 mill/uL (4.70-6.10); White Blood Cell (WBC) Count 12.4 thou/uL (4.8-10.8)
[2021-02-11 06:18] LABS: Anion Gap 15 mmol/L (10-20); BUN (Urea Nitrogen) 24 mg/dL (8.4-25.7); Calc. Creatinine Clearance 103 mL/min (70-130); Calcium 8.5 mg/dL (7.8-10.44); Carbon Dioxide 26 mmol/L (23-31); Chloride 101 mmol/L (98-107); Glucose 115 mg/dL (80-115); Potassium 4.3 mmol/L (3.5-5.1); Sodium 138 mmol/L (136-145)
[2021-02-11] MEDS ORDERED: Spironolactone 25 MG TAB PO SCH ×3 (08:00→09:30)
[2021-02-11] MEDS ORDERED: Furosemide 40 MG/4 ML VIAL SLOW IVP SCH (09:30)
[2021-02-11] MEDS: Digoxin 0.25 MG TAB PO SCH (09:49)
[2021-02-11] MEDS: Carvedilol 6.25 MG TAB PO SCH ×3 (09:50→16:16)
[2021-02-11] MEDS: traMADol HCl 50 MG TAB PO PRN ×3 (09:54→22:18)
[2021-02-11] MEDS: Icosapent Ethyl 1 GM CAPSULE PO SCH ×2 (09:55→19:53)
[2021-02-11] MEDS: Enoxaparin Sodium 100 MG/ML SYRINGE SC SCH ×2 (09:56→19:53)
[2021-02-11] MEDS: Ondansetron PF 4 MG/2 ML Vial IVP PRN ×2 (09:57→13:55)
[2021-02-11] MEDS: Acetaminophen 325 MG TAB PO PRN (13:54)
[2021-02-11] MEDS: Furosemide 40 MG/4 ML VIAL SLOW IVP SCH (13:55)
[2021-02-11] MEDS: cefTRIAXone\\ROCEPHIN 1 GM in Sodium Chloride 0.9% 100 ML IVPB SCH (18:54)
[2021-02-11] MEDS: Azithromycin 500 MG in Sodium Chloride 0.9% 250 ML 250 ML IVPB SCH (19:52)
[2021-02-11] MEDS: Gabapentin 300 MG CAP PO SCH (19:52)
[2021-02-11] MEDS ORDERED: Enoxaparin Sodium 80 MG/0.8 ML SYRINGE SC SCH (21:00)
[2021-02-12] MEDS: traMADol HCl 50 MG TAB PO PRN ×2 (05:32→10:34)
[2021-02-12] MEDS: Furosemide 40 MG/4 ML VIAL SLOW IVP SCH ×2 (05:32→14:26)
[2021-02-12 06:15] LABS: #Basophils 0.1 thou/uL (0.0-0.2); #Eosinphils 0.1 thou/uL (0.0-0.7); #Lymphocytes 1.5 thou/uL (1.20-3.40); #Monocytes 1.4 thou/uL (0.11-0.59); #Neutrophils 8.1 thou/uL (1.40-6.50); %Basophils 0.7 % (0.0-1.0); %Eosinophils 0.5 % (0.0-10.0); %Lymphocytes 13.5 % (21.0-51.0); %Monocytes 12.4 % (0.0-10.0); Hemoglobin 10.7 g/dL (14.0-18.0); Mean Corpuscular HGB CONC 32.3 g/dL (32.0-36.0); Mean Corpuscular Hemoglobin 29.9 pg (27.0-31.0); Mean Corpuscular Volume 92.7 fL (78.0-98.0); Mean Platelet Volume 10.2 fL (7.4-10.4); Platelet Count 231 thou/uL (130-400); RBC Distribution Width 14.8 % (11.5-14.5); Red Blood Cell (RBC) Count 3.58 mill/uL (4.70-6.10); White Blood Cell (WBC) Count 11.1 thou/uL (4.8-10.8)
[2021-02-12 06:33] LABS: Anion Gap 15 mmol/L (10-20); BUN (Urea Nitrogen) 27 mg/dL (8.4-25.7); Calc. Creatinine Clearance 101 mL/min (70-130); Calcium 8.6 mg/dL (7.8-10.44); Carbon Dioxide 28 mmol/L (23-31); Chloride 101 mmol/L (98-107); Glucose 122 mg/dL (80-115); Potassium 4.5 mmol/L (3.5-5.1); Sodium 139 mmol/L (136-145)
[2021-02-12] MEDS: Enoxaparin Sodium 100 MG/ML SYRINGE SC SCH ×2 (08:43→20:10)
[2021-02-12] MEDS: Digoxin 0.25 MG TAB PO SCH (08:44)
[2021-02-12] MEDS: Spironolactone 25 MG TAB PO SCH ×2 (08:44→09:25)
[2021-02-12] MEDS: Icosapent Ethyl 1 GM CAPSULE PO SCH ×2 (08:50→20:00)
[2021-02-12] MEDS: Carvedilol 6.25 MG TAB PO SCH ×3 (08:50→17:21)
[2021-02-12] MEDS ORDERED: Gabapentin 300 MG CAP PO SCH (10:15)
[2021-02-12] MEDS: cefTRIAXone\\ROCEPHIN 1 GM in Sodium Chloride 0.9% 100 ML IVPB SCH (17:21)
[2021-02-12] MEDS: Gabapentin 300 MG CAP PO SCH (20:09)
[2021-02-12] MEDS: Azithromycin 500 MG in Sodium Chloride 0.9% 250 ML 250 ML IVPB SCH (21:18)
[2021-02-13] MEDS: traMADol HCl 50 MG TAB PO PRN ×3 (03:36→20:21)
[2021-02-13] MEDS: Furosemide 40 MG/4 ML VIAL SLOW IVP SCH ×2 (05:39→13:36)
[2021-02-13 05:53] LABS: #Eosinphils 0.1 thou/uL (0.0-0.7); #Lymphocytes 1.5 thou/uL (1.20-3.40); #Monocytes 1.2 thou/uL (0.11-0.59); #Neutrophils 7.7 thou/uL (1.40-6.50); %Basophils 0.3 % (0.0-1.0); %Eosinophils 0.6 % (0.0-10.0); %Lymphocytes 14.4 % (21.0-51.0); %Monocytes 11.5 % (0.0-10.0); %Neutrophils 73.2 % (42.0-75.0); Hemoglobin 9.6 g/dL (14.0-18.0); Mean Corpuscular Hemoglobin 29.7 pg (27.0-31.0); Mean Corpuscular Volume 92.8 fL (78.0-98.0); Mean Platelet Volume 9.9 fL (7.4-10.4); Platelet Count 214 thou/uL (130-400); RBC Distribution Width 14.8 % (11.5-14.5); Red Blood Cell (RBC) Count 3.23 mill/uL (4.70-6.10); White Blood Cell (WBC) Count 10.5 thou/uL (4.8-10.8)
[2021-02-13 06:23] LABS: Anion Gap 13 mmol/L (10-20); BUN (Urea Nitrogen) 28 mg/dL (8.4-25.7); Calc. Creatinine Clearance 72 mL/min (70-130); Calcium 8.2 mg/dL (7.8-10.44); Carbon Dioxide 27 mmol/L (23-31); Chloride 101 mmol/L (98-107); Glucose 141 mg/dL (80-115); Potassium 4.2 mmol/L (3.5-5.1); Sodium 137 mmol/L (136-145)
[2021-02-13] MEDS: Spironolactone 25 MG TAB PO SCH (08:29)
[2021-02-13] MEDS: Enoxaparin Sodium 100 MG/ML SYRINGE SC SCH ×2 (08:29→20:18)
[2021-02-13] MEDS: Digoxin 0.25 MG TAB PO SCH (08:29)
[2021-02-13] MEDS: Gabapentin 300 MG CAP PO SCH ×2 (08:29→20:19)
[2021-02-13] MEDS: Icosapent Ethyl 1 GM CAPSULE PO SCH ×2 (08:31→20:20)
[2021-02-13] MEDS: Carvedilol 6.25 MG TAB PO SCH ×2 (08:31→17:34)
[2021-02-13] MEDS: cefTRIAXone\\ROCEPHIN 1 GM in Sodium Chloride 0.9% 100 ML IVPB SCH (17:34)
[2021-02-13] MEDS: Azithromycin 500 MG in Sodium Chloride 0.9% 250 ML 250 ML IVPB SCH (20:18)
[2021-02-14] MEDS: traMADol HCl 50 MG TAB PO PRN ×3 (04:13→18:21)
[2021-02-14] MEDS: Furosemide 40 MG/4 ML VIAL SLOW IVP SCH ×2 (06:28→13:29)
[2021-02-14 07:23] LABS: #Basophils 0.1 thou/uL (0.0-0.2); #Lymphocytes 1.7 thou/uL (1.20-3.40); #Monocytes 1.4 thou/uL (0.11-0.59); #Neutrophils 8.5 thou/uL (1.40-6.50); %Basophils 0.5 % (0.0-1.0); %Eosinophils 0.3 % (0.0-10.0); %Lymphocytes 14.7 % (21.0-51.0); %Monocytes 12.2 % (0.0-10.0); %Neutrophils 72.3 % (42.0-75.0); Mean Corpuscular HGB CONC 32.2 g/dL (32.0-36.0); Mean Corpuscular Hemoglobin 30.1 pg (27.0-31.0); Mean Corpuscular Volume 93.6 fL (78.0-98.0); Mean Platelet Volume 10.5 fL (7.4-10.4); Platelet Count 197 thou/uL (130-400); RBC Distribution Width 14.8 % (11.5-14.5); Red Blood Cell (RBC) Count 3.32 mill/uL (4.70-6.10); White Blood Cell (WBC) Count 11.7 thou/uL (4.8-10.8)
[2021-02-14 07:38] LABS: Anion Gap 10 mmol/L (10-20); BUN (Urea Nitrogen) 25 mg/dL (8.4-25.7); Calc. Creatinine Clearance 90 mL/min (70-130); Calcium 8.4 mg/dL (7.8-10.44); Carbon Dioxide 28 mmol/L (23-31); Chloride 98 mmol/L (98-107); Glucose 134 mg/dL (80-115); Magnesium 1.9 mg/dL (1.6-2.6); Potassium 4.5 mmol/L (3.5-5.1); Sodium 131 mmol/L (136-145)
[2021-02-14] MEDS: Carvedilol 6.25 MG TAB PO SCH ×2 (08:05→16:11)
[2021-02-14] MEDS: Digoxin 0.25 MG TAB PO SCH (08:09)
[2021-02-14] MEDS: Gabapentin 300 MG CAP PO SCH ×2 (08:09→20:44)
[2021-02-14] MEDS: Spironolactone 25 MG TAB PO SCH (08:09)
[2021-02-14] MEDS: Enoxaparin Sodium 100 MG/ML SYRINGE SC SCH ×2 (08:11→20:43)
[2021-02-14] MEDS: Acetaminophen 325 MG TAB PO PRN ×2 (08:12→21:59)
[2021-02-14] MEDS: Icosapent Ethyl 1 GM CAPSULE PO SCH ×2 (08:47→20:44)
[2021-02-14] MEDS: Insulin Regular 300 UNITS/3 ML VIAL SC PRN (11:46)
[2021-02-14] MEDS ORDERED: Aspirin 81 mg Enteric Coated Tablet PO SCH (15:45)
[2021-02-14] MEDS: cefTRIAXone\\ROCEPHIN 1 GM in Sodium Chloride 0.9% 100 ML IVPB SCH (17:02)
[2021-02-14] MEDS: Ondansetron PF 4 MG/2 ML Vial IVP PRN (17:06)
[2021-02-14] MEDS: Atorvastatin Calcium 20 MG TAB PO SCH (20:43)
[2021-02-14] MEDS: Azithromycin 500 MG in Sodium Chloride 0.9% 250 ML 250 ML IVPB SCH (20:43)
[2021-02-15] MEDS: traMADol HCl 50 MG TAB PO PRN ×2 (05:25→12:42)
[2021-02-15 07:12] LABS: #Eosinphils 0.1 thou/uL (0.0-0.7); #Neutrophils 8.8 thou/uL (1.40-6.50); %Basophils 0.2 % (0.0-1.0); %Eosinophils 0.6 % (0.0-10.0); %Lymphocytes 9.3 % (21.0-51.0); %Monocytes 8.9 % (0.0-10.0); Mean Corpuscular HGB CONC 32.5 g/dL (32.0-36.0); Mean Corpuscular Hemoglobin 30.3 pg (27.0-31.0); Mean Corpuscular Volume 93.3 fL (78.0-98.0); Mean Platelet Volume 10.6 fL (7.4-10.4); Platelet Count 210 thou/uL (130-400); RBC Distribution Width 14.9 % (11.5-14.5); White Blood Cell (WBC) Count 10.9 thou/uL (4.8-10.8)
[2021-02-15 07:30] LABS: Anion Gap 16 mmol/L (10-20); BUN (Urea Nitrogen) 31 mg/dL (8.4-25.7); Calc. Creatinine Clearance 83 mL/min (70-130); Calcium 8.4 mg/dL (7.8-10.44); Carbon Dioxide 27 mmol/L (23-31); Chloride 99 mmol/L (98-107); Glucose 150 mg/dL (80-115); Potassium 4.3 mmol/L (3.5-5.1); Sodium 138 mmol/L (136-145)
[2021-02-15] MEDS ORDERED: Ketamine 50 MG/ML (10ML VIAL) ONE (08:06)
[2021-02-15] MEDS ORDERED: Albuterol Sulfate 1.25 MG/3 ML NEB ONE (08:07)
[2021-02-15] MEDS ORDERED: Furosemide 40 MG/4 ML VIAL ONE (08:13)
[2021-02-15] MEDS ORDERED: Fentanyl 100 MCG/2 ML VIAL ONE (08:18)
[2021-02-15] MEDS ORDERED: PROPOFOL 200 MG/20 ML VIAL ONE (08:22)
[2021-02-15] MEDS: Aspirin 81 mg Enteric Coated Tablet PO SCH (09:51)
[2021-02-15] MEDS: Amiodarone 200 MG TAB PO SCH ×2 (09:51→20:02)
[2021-02-15] MEDS: Spironolactone 25 MG TAB PO SCH (09:51)
[2021-02-15] MEDS: Gabapentin 300 MG CAP PO SCH ×2 (09:51→20:01)
[2021-02-15] MEDS: Furosemide 40 MG/4 ML VIAL SLOW IVP SCH ×2 (09:51→15:58)
[2021-02-15] MEDS: Enoxaparin Sodium 100 MG/ML SYRINGE SC SCH ×2 (09:52→20:01)
[2021-02-15] MEDS: Icosapent Ethyl 1 GM CAPSULE PO SCH ×2 (10:00→20:01)
[2021-02-15] MEDS: Carvedilol 6.25 MG TAB PO SCH (17:32)
[2021-02-15] MEDS: Atorvastatin Calcium 20 MG TAB PO SCH (20:02)
[2021-02-16] MEDS: traMADol HCl 50 MG TAB PO PRN ×3 (05:05→19:44)
[2021-02-16] MEDS: Furosemide 40 MG/4 ML VIAL SLOW IVP SCH ×2 (05:05→15:38)
[2021-02-16] MEDS: Amiodarone 200 MG TAB PO SCH ×2 (08:34→20:25)
[2021-02-16] MEDS: Aspirin 81 mg Enteric Coated Tablet PO SCH (08:34)
[2021-02-16] MEDS: Spironolactone 25 MG TAB PO SCH (08:34)
[2021-02-16] MEDS: Enoxaparin Sodium 100 MG/ML SYRINGE SC SCH ×2 (08:34→20:24)
[2021-02-16] MEDS: Gabapentin 300 MG CAP PO SCH ×2 (08:34→20:31)
[2021-02-16] MEDS: Acetaminophen 325 MG TAB PO PRN (08:38)
[2021-02-16] MEDS: Icosapent Ethyl 1 GM CAPSULE PO SCH ×2 (09:57→20:25)
[2021-02-16] MEDS ORDERED: methylPREDNISolone Sod Succ 40 MG VIAL IVP SCH (16:10)
[2021-02-16] MEDS: Atorvastatin Calcium 20 MG TAB PO SCH (20:24)
[2021-02-16] MEDS: Insulin Regular 300 UNITS/3 ML VIAL SC PRN (21:42)
[2021-02-17 00:38] LABS: SARS-CoV-2 PCR by NAA Not Detected (NotDetected)
[2021-02-17] MEDS ORDERED: Lidocaine 2% Viscous Solution 10 ML, Aluminum & Magnesium Hydroxide 30 ML SSW SCH (04:30)
[2021-02-17] MEDS: Furosemide 40 MG/4 ML VIAL SLOW IVP SCH ×2 (05:28→15:04)
[2021-02-17] MEDS: Insulin Regular 300 UNITS/3 ML VIAL SC PRN ×2 (05:33→17:47)
[2021-02-17] MEDS: traMADol HCl 50 MG TAB PO PRN ×3 (05:34→23:03)
[2021-02-17 06:10] LABS: Troponin I 0.208 ng/mL (< 0.028)
[2021-02-17 06:57] LABS: Troponin I 0.186 ng/mL (< 0.028)
[2021-02-17] MEDS: Aspirin 81 mg Enteric Coated Tablet PO SCH (08:50)
[2021-02-17] MEDS: Icosapent Ethyl 1 GM CAPSULE PO SCH ×2 (08:50→20:05)
[2021-02-17] MEDS: Enoxaparin Sodium 100 MG/ML SYRINGE SC SCH ×2 (08:50→20:06)
[2021-02-17] MEDS: Amiodarone 200 MG TAB PO SCH ×2 (08:51→20:06)
[2021-02-17] MEDS: Gabapentin 300 MG CAP PO SCH ×2 (08:51→20:05)
[2021-02-17] MEDS ORDERED: Carvedilol 3.125 MG TAB PO SCH (09:30)
[2021-02-17] MEDS: Carvedilol 3.125 MG TAB PO SCH (16:33)
[2021-02-17] MEDS: Atorvastatin Calcium 20 MG TAB PO SCH (20:06)
[2021-02-18] MEDS: Furosemide 40 MG/4 ML VIAL SLOW IVP SCH (05:03)
[2021-02-18] MEDS: traMADol HCl 50 MG TAB PO PRN ×3 (05:04→18:27)
[2021-02-18] MEDS: Insulin Regular 300 UNITS/3 ML VIAL SC PRN ×4 (06:18→20:31)
[2021-02-18 07:59] LABS: Hemoglobin 9.8 g/dL (14.0-18.0); Mean Corpuscular HGB CONC 32.1 g/dL (32.0-36.0); Mean Corpuscular Hemoglobin 29.8 pg (27.0-31.0); Mean Platelet Volume 10.8 fL (7.4-10.4); Platelet Count 231 thou/uL (130-400); RBC Distribution Width 16.3 % (11.5-14.5); Red Blood Cell (RBC) Count 3.29 mill/uL (4.70-6.10); White Blood Cell (WBC) Count 15.9 thou/uL (4.8-10.8)
[2021-02-18] MEDS: Gabapentin 300 MG CAP PO SCH (08:49)
[2021-02-18] MEDS: Amiodarone 200 MG TAB PO SCH ×2 (08:50→20:27)
[2021-02-18] MEDS: Aspirin 81 mg Enteric Coated Tablet PO SCH (08:50)
[2021-02-18] MEDS: Carvedilol 3.125 MG TAB PO SCH (08:52)
[2021-02-18] MEDS ORDERED: Spironolactone 25 MG TAB PO SCH (09:00)
[2021-02-18 09:36] LABS: ALT (SGPT) 221 U/L (8-55); AST (SGOT) 177 U/L (5-34); Albumin 3.2 g/dL (3.4-4.8); Alkaline Phosphatase 124 U/L (40-110); Anion Gap 17 mmol/L (10-20); BUN (Urea Nitrogen) 54 mg/dL (8.4-25.7); Bilirubin, Total 0.8 mg/dL (0.2-1.2); Calc. Creatinine Clearance 63 mL/min (70-130); Calcium 8.8 mg/dL (7.8-10.44); Carbon Dioxide 28 mmol/L (23-31); Chloride 98 mmol/L (98-107); Globulin 3.9 g/dL (2.4-3.5); Glucose 266 mg/dL (80-115); Potassium 4.8 mmol/L (3.5-5.1); Protein, Total 7.1 g/dL (5.8-8.1); Sodium 138 mmol/L (136-145)
[2021-02-18] MEDS: Apixaban 5 MG TAB PO SCH ×2 (09:55→20:27)
[2021-02-18] MEDS: Icosapent Ethyl 1 GM CAPSULE PO SCH ×2 (09:55→20:28)
[2021-02-18] MEDS ORDERED: Sodium Chloride 0.9% 1,000 ML IV SCH (12:15)
[2021-02-18] MEDS ORDERED: DOBUTamine 500 mg/250 ml 250 ML IVPB SCH (16:30)
[2021-02-18] MEDS ORDERED: Metolazone 5 MG TAB PO SCH (17:10)
[2021-02-18] MEDS ORDERED: Furosemide 40 MG/4 ML VIAL SLOW IVP SCH (17:10)
[2021-02-18] MEDS ORDERED: Milrinone Lactate/D5W 20 MG in Premix Bag 1 BAG IVPB SCH (17:15)
[2021-02-18] MEDS ORDERED: Nortriptyline 10 MG CAP ONE (19:47)
[2021-02-19] MEDS: traMADol HCl 50 MG TAB PO PRN (00:54)
[2021-02-19 04:42] VITALS: BP 118/55
[2021-02-19 05:43] LABS: #Basophils 0.1 thou/uL (0.0-0.2); #Lymphocytes 1.1 thou/uL (1.20-3.40); #Neutrophils 15.8 thou/uL (1.40-6.50); %Basophils 0.4 % (0.0-1.0); %Eosinophils 0.1 % (0.0-10.0); %Monocytes 5.3 % (0.0-10.0); %Neutrophils 88.1 % (42.0-75.0); Hemoglobin 10.6 g/dL (14.0-18.0); Mean Corpuscular HGB CONC 32.9 g/dL (32.0-36.0); Mean Corpuscular Hemoglobin 30.8 pg (27.0-31.0); Mean Corpuscular Volume 93.8 fL (78.0-98.0); Platelet Count 222 thou/uL (130-400); RBC Distribution Width 16.8 % (11.5-14.5); Red Blood Cell (RBC) Count 3.45 mill/uL (4.70-6.10); White Blood Cell (WBC) Count 17.9 thou/uL (4.8-10.8)
[2021-02-19 06:11] LABS: ALT (SGPT) 176 U/L (8-55); AST (SGOT) 96 U/L (5-34); Alkaline Phosphatase 119 U/L (40-110); Anion Gap 19 mmol/L (10-20); BUN (Urea Nitrogen) 53 mg/dL (8.4-25.7); Bilirubin, Direct 0.5 mg/dL (0.1-0.3); Bilirubin, Total 0.9 mg/dL (0.2-1.2); Calc. Creatinine Clearance 63 mL/min (70-130); Calcium 8.5 mg/dL (7.8-10.44); Carbon Dioxide 26 mmol/L (23-31); Chloride 97 mmol/L (98-107); Glucose 210 mg/dL (80-115); Potassium 4.9 mmol/L (3.5-5.1); Protein, Total 7.2 g/dL (5.8-8.1); Sodium 137 mmol/L (136-145)
[2021-02-19] MEDS: Insulin Regular 300 UNITS/3 ML VIAL SC PRN (06:22)
[2021-02-19] MEDS: Furosemide 40 MG/4 ML VIAL SLOW IVP SCH ×2 (06:35→13:43)
[2021-02-19] MEDS ORDERED: Aspirin 325 MG TAB ONE (07:27)
[2021-02-19 07:50] LABS: #Monocytes 0.9 thou/uL (0.11-0.59); #Neutrophils 16.4 thou/uL (1.40-6.50); %Eosinophils 0.1 % (0.0-10.0); %Lymphocytes 5.5 % (21.0-51.0); %Monocytes 4.8 % (0.0-10.0); %Neutrophils 89.5 % (42.0-75.0); Hemoglobin 10.6 g/dL (14.0-18.0); Mean Corpuscular HGB CONC 32.4 g/dL (32.0-36.0); Mean Corpuscular Hemoglobin 30.2 pg (27.0-31.0); Mean Corpuscular Volume 93.3 fL (78.0-98.0); Mean Platelet Volume 10.6 fL (7.4-10.4); Platelet Count 235 thou/uL (130-400); RBC Distribution Width 16.4 % (11.5-14.5); Red Blood Cell (RBC) Count 3.51 mill/uL (4.70-6.10); White Blood Cell (WBC) Count 18.3 thou/uL (4.8-10.8)
[2021-02-19] MEDS ORDERED: Spironolactone 25 MG TAB PO SCH (08:00)
[2021-02-19 08:10] LABS: ALT (SGPT) 167 U/L (8-55); AST (SGOT) 85 U/L (5-34); Alkaline Phosphatase 122 U/L (40-110); Anion Gap 17 mmol/L (10-20); BUN (Urea Nitrogen) 51 mg/dL (8.4-25.7); Calc. Creatinine Clearance 67 mL/min (70-130); Calcium 8.3 mg/dL (7.8-10.44); Carbon Dioxide 25 mmol/L (23-31); Chloride 98 mmol/L (98-107); Globulin 3.5 g/dL (2.4-3.5); Glucose 232 mg/dL (80-115); INR-International Normal Ratio 1.7; PTT 32.4 sec (22.9-36.1); Potassium 4.4 mmol/L (3.5-5.1); Protein, Total 6.5 g/dL (5.8-8.1); Sodium 136 mmol/L (136-145)
[2021-02-19 08:18] LABS: D-Dimer Test 5.09 *mcg/mL (0.27-0.43)
[2021-02-19] MEDS ORDERED: Metolazone 5 MG TAB PO SCH (09:00)
[2021-02-19] MEDS: Acetaminophen 325 MG TAB PO PRN (09:09)
[2021-02-19] MEDS: Aspirin 81 mg Enteric Coated Tablet PO SCH (09:11)
[2021-02-19] MEDS: Apixaban 5 MG TAB PO SCH ×2 (09:11→21:33)
[2021-02-19] MEDS: Amiodarone 200 MG TAB PO SCH ×2 (09:12→21:33)
[2021-02-19] MEDS ORDERED: Piperacillin/Tazobactam 3.375 GM in Sodium Chloride 0.9% 100 ML IVPB SCH ×3 (09:45→18:00)
[2021-02-19] MEDS: Icosapent Ethyl 1 GM CAPSULE PO SCH ×2 (10:10→21:33)
[2021-02-19] MEDS ORDERED: Piperacillin/Tazobactam 3.375 GM in Dextrose 5% in Water 100 ML IVPB SCH ×2 (10:30)
[2021-02-19] MEDS: Fentanyl 100 MCG/2 ML VIAL SLOW IVP PRN ×2 (11:22→15:24)
[2021-02-19] MEDS: Lorazepam 2 MG/ML VIAL SLOW IVP PRN ×2 (11:23→15:23)
[2021-02-19] MEDS: Piperacillin/Tazobactam 3.375 GM in Dextrose 5% in Water 100 ML IVPB SCH (15:30)
[2021-02-19 22:48] LABS: Clarity Cloudy (Clear); Specific Gravity, Urine 1.027 (1.002-1.036); pH, Urine 5.5 (5.0-9.0)
[2021-02-19 22:49] LABS: Bilirubin Negative (Negative); Blood, Urine Large (Negative); Glucose, Urine (Dipstick) Negative (Negative); Ketone, Urine Trace mg/dL (Negative); Leukocyte Negative (Negative); Nitrite Negative (Negative); Protein, Urine (Dipstick) > or equal to 300 mg/dL (Neg-Trace); Urobilinogen 0.2 mg/dL (Less than 2)
[2021-02-19 22:50] LABS: Other Microscopic Description Less than 2 mL rec'd; RBC/HPF Greater than 50 HPF (0-3)
[2021-02-19 22:51] LABS: WBC/HPF 21-50 HPF (0-3)
[2021-02-19 22:52] LABS: Bacteria/HPF 2+ HPF (None Seen); Renal Epithelial 0-3 HPF (None Seen); Squamous Epithelial None Seen HPF (0-3)
[2021-02-20] MEDS: Lorazepam 2 MG/ML VIAL SLOW IVP PRN (01:04)
[2021-02-20] MEDS: Piperacillin/Tazobactam 3.375 GM in Dextrose 5% in Water 100 ML IVPB SCH (01:04)
[2021-02-20 05:07] VITALS: TEMP 97.9
[2021-02-20] MEDS: Furosemide 40 MG/4 ML VIAL SLOW IVP SCH (05:22)
[2021-02-20 05:30] LABS: ALT (SGPT) 111 U/L (8-55); AST (SGOT) 39 U/L (5-34); Albumin 2.8 g/dL (3.4-4.8); Alkaline Phosphatase 122 U/L (40-110); Anion Gap 27 mmol/L (10-20); BUN (Urea Nitrogen) 63 mg/dL (8.4-25.7); Bilirubin, Total 1.4 mg/dL (0.2-1.2); Calc. Creatinine Clearance 38 mL/min (70-130); Carbon Dioxide 21 mmol/L (23-31); Chloride 93 mmol/L (98-107); Globulin 3.3 g/dL (2.4-3.5); Glucose 326 mg/dL (80-115); Protein, Total 6.1 g/dL (5.8-8.1); Sodium 136 mmol/L (136-145)
[2021-02-20 05:31] LABS: Hemoglobin 9.8 g/dL (14.0-18.0); MDiff Complete? YES; Mean Corpuscular HGB CONC 32.1 g/dL (32.0-36.0); Mean Corpuscular Hemoglobin 30.9 pg (27.0-31.0); Mean Corpuscular Volume 96.2 fL (78.0-98.0); Mean Platelet Volume 11.2 fL (7.4-10.4); Platelet Count 221 thou/uL (130-400); RBC Distribution Width 16.8 % (11.5-14.5); Red Blood Cell (RBC) Count 3.17 mill/uL (4.70-6.10); White Blood Cell (WBC) Count 20.8 thou/uL (4.8-10.8)
[2021-02-20 05:32] LABS: Band 2 % (5-11); Eosinophils 2 % (0-10); Lymphocytes 10 % (21-51); Monocytes 3 % (0-10); Neutrophil 83 % (42-75); Platelet Morphology Comment Appears Adequate
== END 2021-02-20 06:40 | disposition expired | DRG 871 ==
LOC: 2SW 14:30 → OBSVTOIN 17:36 → CCU 02-19 08:00
PROVIDERS: ADMIT Internal Medicine; ATTEND Internal Medicine
PROC: B24BZZ4 Ultrasonography of Heart with Aorta, Transesophageal (ICD-10-PCS; principal; 2021-02-15)
PROC: 5A2204Z Restoration of Cardiac Rhythm, Single (ICD-10-PCS; 2021-02-15)
PROC: 3E033XZ Introduction of Vasopressor into Peripheral Vein, Percutaneous Approach (ICD-10-PCS; 2021-02-18)
PROC: 5A09357 Assistance with Respiratory Ventilation, Less than 24 Consecutive Hours, Continuous Positive Airway Pressure (ICD-10-PCS; 2021-02-19)
DX: A41.9 Sepsis, unspecified organism (principal); I21.4 Non-ST elevation (NSTEMI) myocardial infarction; J96.01 Acute respiratory failure with hypoxia; I50.43 Acute on chronic combined systolic (congestive) and diastolic (congestive) heart failure; J18.9 Pneumonia, unspecified organism; I48.19 Other persistent atrial fibrillation; N17.9 Acute kidney failure, unspecified; E11.51 Type 2 diabetes mellitus with diabetic peripheral angiopathy without gangrene; Z66 Do not resuscitate; Z20.822 Contact with and (suspected) exposure to COVID-19; I11.0 Hypertensive heart disease with heart failure; E78.5 Hyperlipidemia, unspecified; I25.10 Atherosclerotic heart disease of native coronary artery without angina pectoris; I25.5 Ischemic cardiomyopathy; F10.10 Alcohol abuse, uncomplicated; I44.7 Left bundle-branch block, unspecified; G89.29 Other chronic pain; M48.07 Spinal stenosis, lumbosacral region; M47.897 Other spondylosis, lumbosacral region; R07.9 Chest pain, unspecified; R74.01 Elevation of levels of liver transaminase levels; R57.0 Cardiogenic shock; G47.33 Obstructive sleep apnea (adult) (pediatric); I46.9 Cardiac arrest, cause unspecified; I25.2 Old myocardial infarction; Z89.512 Acquired absence of left leg below knee; Z88.8 Allergy status to other drugs, medicaments and biological substances; Z79.01 Long term (current) use of anticoagulants; Z79.4 Long term (current) use of insulin; Z79.899 Other long term (current) drug therapy; Z86.16 Personal history of COVID-19; Z87.891 Personal history of nicotine dependence; Z95.1 Presence of aortocoronary bypass graft; Z86.73 Personal history of transient ischemic attack (TIA), and cerebral infarction without residual deficits; Z82.49 Family history of ischemic heart disease and other diseases of the circulatory system; I34.0 Nonrheumatic mitral (valve) insufficiency
CPT/HCPCS: 36415; 36416; 70450; 71045; 71046; 72148; 74018; 80048; 80053; 80076; 80162; 81001; 82553; 83605; 83735; 83880; 84484; 85025; 85027; 85379; 85610; 85730; 86140; 87040; 87633; 92960; 93005; 93010; 93306; 94660; J0456; J0696; J1650; J1940; J2060; J2260; J2405; J2543; J2704; J2920; J3010; J3490; J7050; J7070; Q0162; U0003; U0005